=== PATIENT | male | born 1965 | race Two or more races ===

== ENCOUNTER 2019-10-02 19:46 | Emergency (ER) | payer BC ==
[~2019-10-02] VITALS: Ht 175.3 cm; Wt 86.3 kg
[2019-10-02] MEDS ORDERED: IV NORMAL SALINE 1000ML BAG 1,000 ML IV ONE (20:30)
[2019-10-02] MEDS ORDERED: ACETAMINOPHEN 325 MG TABLET. PO ONE (20:30)
[2019-10-02 20:57] LABS: BASO % 0 % (0-3); EOS % 0 % (0-3); HEMATOCRIT 42.1 % (39.0-53.0); HEMOGLOBIN 15.1 g/dL (13.0-17.5); LYMPH # 1.7 x10^3/uL (1.0-4.8); LYMPH % 35 % (24-48); MEAN CORPUSCULAR HEMOGLOBIN 32 pg (25-35); MEAN CORPUSCULAR HGB CONC 36 g/dL (31-37); MEAN CORPUSCULAR VOLUME 90 fL (79-100); MONO # 0.4 x10^3/uL (0.0-1.1); MONO % 9 % (0-9); NEUT # 2.8 x10^3/uL (1.8-7.7); NEUT % 56 % (31-73); PLATELET COUNT 125 x10^3/uL (140-400); RED BLOOD COUNT 4.68 x10^6/uL (4.30-5.70); RED CELL DISTRIBUTION WIDTH 12.9 % (11.5-14.5); WHITE BLOOD COUNT 4.9 x10^3/uL (4.0-11.0)
[2019-10-02 21:05] LABS: CALCIUM 8.6 mg/dL (8.5-10.1); CREATININE 1.1 mg/dL (0.7-1.3); GFR 69.8; POTASSIUM 3.6 mmol/L (3.5-5.1)
[2019-10-02 21:11] LABS: ALBUMIN 3.8 g/dL (3.4-5.0); ALBUMIN/GLOBULIN RATIO 1.1 (1.0-1.7); TOTAL BILIRUBIN 0.3 mg/dL (0.2-1.0); TOTAL PROTEIN 7.4 g/dL (6.4-8.2)
--- NOTE | 2019-10-02 21:58 | RAD ---
Exam: Chest one view INDICATION: Cough TECHNIQUE: Frontal view of the chest Comparisons: None FINDINGS: The cardiomediastinal silhouette and pulmonary vessels are within normal limits. The lung and pleural spaces are clear. IMPRESSION: No acute cardiopulmonary process. Electronically signed by: Warren Jackson MD (10/02/2019 9:56 PM) [id number]
--- NOTE | 2019-10-02 22:24 | PHYS DOC ---
Past Medical History Past Medical History: No Pertinent History Smoking Status: Never Smoker Alcohol Use: None General Adult EDM: Chief Complaint: HEADACHE HPI: HPI: Patient is a 54 year old male with a chief complaint of fever, cough, body aches x1 week. Patient states that his also has similar complaints. Patient denies being an active smoker. Patient denies having diabetes, asthma or any other medical issues. Patient states that he tries to take NyQuil which knocked him a couple nights but the symptoms have not gone away. Patient is concerned that he may have COVID. Review of Systems: Review of Systems: Constitutional: Complains of fever. [] Eyes: Denies change in visual acuity. [] HENT: Denies nasal congestion or sore throat. [] Respiratory: Complains of cough [] Cardiovascular: Denies chest pain or edema. [] GI: Denies abdominal pain, nausea, vomiting, bloody stools or diarrhea. [] : Denies dysuria. [] Musculoskeletal: Denies back pain or joint pain. [] Integument: Denies rash. [] Neurologic: Complains of headache [] Heart Score: Risk Factors: Risk Factors: DM, Current or recent (<one month) smoker, HTN, HLP, family history of CAD, obesity. Risk Scores: Score 0 - 3: 2.5% MACE over next 6 weeks - Discharge Home Score 4 - 6: 20.3% MACE over next 6 weeks - Admit for Clinical Observation Score 7 - 10: 72.7% MACE over next 6 weeks - Early Invasive Strategies Current Medications: Current Medications Medications (Trade) Dose Ordered [facility] Start Time Stop Time Status Last Admin Dose Admin Acetaminophen (Tylenol) 650 mg 1X ONCE 10/02/19 20:30 10/02/19 20:31 UNV 10/02/19 21:34 650 MG Azithromycin (Zithromax) 500 mg 1X ONCE 10/02/19 22:15 10/02/19 22:16 UNV Ceftriaxone Sodium (Rocephin) 1 gm 1X ONCE 10/02/19 22:15 10/02/19 22:16 UNV Sodium Chloride 1,000 ml @ 1,000 mls/hr 1X ONCE 10/02/19 20:30 10/02/19 21:29 UNV 10/02/19 21:34 1,000 MLS/HR Allergies: Allergies: Allergies Coded Allergies Type Severity Reaction Last Updated Verified No Known Drug Allergies 10/02/19 No Physical Exam: PE: Constitutional: Well developed, well nourished, no acute distress, non-toxic appearance. [] HENT: Normocephalic, atraumatic Eyes: EOMI Neck: Normal range of motion, Supple Cardiovascular: Heart rate regular rhythm Lungs & Thorax: Bilateral breath sounds clear to auscultation [] Abdomen: Bowel sounds normal, soft, no tenderness Extremities: No tenderness, ROM intact Neurologic: Alert and oriented X 3 Current Patient Data: Labs: Laboratory Tests Test 10/02/19 20:40 White Blood Count 4.9 x10^3/uL (4.0-11.0) Red Blood Count 4.68 x10^6/uL (4.30-5.70) Hemoglobin 15.1 g/dL (13.0-17.5) Hematocrit 42.1 % (39.0-53.0) Mean Corpuscular Volume 90 fL (79-100) Mean Corpuscular Hemoglobin 32 pg (25-35) Mean Corpuscular Hemoglobin Concent 36 g/dL (31-37) Red Cell Distribution Width 12.9 % (11.5-14.5) Platelet Count 125 x10^3/uL (140-400) L Neutrophils (%) (Auto) 56 % (31-73) Lymphocytes (%) (Auto) 35 % (24-48) Monocytes (%) (Auto) 9 % (0-9) Eosinophils (%) (Auto) 0 % (0-3) Basophils (%) (Auto) 0 % (0-3) Neutrophils # (Auto) 2.8 x10^3/uL (1.8-7.7) Lymphocytes # (Auto) 1.7 x10^3/uL (1.0-4.8) Monocytes # (Auto) 0.4 x10^3/uL (0.0-1.1) Eosinophils # (Auto) 0.0 x10^3/uL (0.0-0.7) Basophils # (Auto) 0.0 x10^3/uL (0.0-0.2) Sodium Level 135 mmol/L (136-145) L Potassium Level 3.6 mmol/L (3.5-5.1) Chloride Level 98 mmol/L (98-107) Carbon Dioxide Level 27 mmol/L (21-32) Anion Gap 10 (6-14) Blood Urea Nitrogen 16 mg/dL (8-26) Creatinine 1.1 mg/dL (0.7-1.3) Estimated GFR (Cockcroft-Gault) 69.8 BUN/Creatinine Ratio 15 (6-20) Glucose Level 112 mg/dL (70-99) H Lactic Acid Level 0.9 mmol/L (0.4-2.0) Calcium Level 8.6 mg/dL (8.5-10.1) Total Bilirubin 0.3 mg/dL (0.2-1.0) Aspartate Amino Transferase (AST) 33 U/L (15-37) Alanine Aminotransferase (ALT) 55 U/L (16-63) Alkaline Phosphatase 92 U/L (46-116) Lactate Dehydrogenase 190 U/L (85-227) Total Protein 7.4 g/dL (6.4-8.2) Albumin 3.8 g/dL (3.4-5.0) Albumin/Globulin Ratio 1.1 (1.0-1.7) Laboratory Tests 10/02/19 20:40 Laboratory Tests 10/02/19 20:40 Vital Signs: Vital Signs Date Time Temp Pulse Resp B/P (MAP) Pulse Ox O2 Delivery O2 Flow Rate FiO2 10/02/19 20:40 99.9 96 16 159/74 (102) 95 Room Air 99.9 EKG: EKG: [] Radiology/Procedures: Radiology/Procedures: [] Impression: CXR IMPRESSION: No acute cardiopulmonary process. Course & Med Decision Making: Course & Med Decision Making Pertinent Labs and Imaging studies reviewed. (See chart for details) Ordered labs, Tylenol, strep screen, COVID testing, chest x-ray, IV fluids Labs are within normal limits. Strep screen is negative. Patient is oxygen saturation is 96% on room air. Patient's is also in the ER with similar complaints. Patient is currently treated with antibiotics and so patient also will be treated with antibiotics. Patient can be discharged home for outpatient follow-up. Discussed results and plan of care with patient. Patient is instructed to follow up with PCP in one to 2 days. Appropriate discharge instructions given to patient to return to the ED or to seek immediate medical evaluation. Patient is instructed to return to the ED if symptoms worsen or if any concerns. Dinorah Disclaimer: Dragon Disclaimer: This electronic medical record was generated, in whole or in part, using a voice recognition dictation system. Departure Departure Impression: Primary Impression: Bronchitis Additional Impression: Suspected COVID-19 virus infection Disposition: HOME, SELF-CARE Condition: STABLE Referrals: NO PCP (PCP) Patient Instructions: Acute Bronchitis, Viral Infections Additional Instructions: Please return to the ED if symptoms worsen or if any concerns. Please follow-up with PCP in 1 to 2 days. Please call 911 if you have shortness of breath. Scripts Azithromycin (ZITHROMAX) 500 Mg Tablet 1 TAB PO DAILY, #4 TAB Prov: ROSALBA SHELDON DO 10/02/19 Justicifation of Admission Dx: Justifications for Admission: Justification of Admission Dx: ROSALBA Bustamante DO Oct 02, 2019 22:24
[2019-10-02] MEDS ORDERED: AZIT500T PO (22:42)
[2019-10-02 23:00] VITALS: BP 123/70
[2019-10-02] MEDS ORDERED: AZITHROMYCIN 250 MG TABLET. PO ONE (23:00)
[2019-10-02] MEDS ORDERED: cefTRIAXone IV Push 1 GM VIAL. IVP ONE (23:00)
== END 2019-10-03 00:30 | disposition home or self-care (01) ==
LOC: ER 19:46
DX: J40 Bronchitis, not specified as acute or chronic (principal); Z20.828 Contact with and (suspected) exposure to other viral communicable diseases; R50.9 Fever, unspecified; R05 Cough; R51 Headache; F17.200 Nicotine dependence, unspecified, uncomplicated
CPT/HCPCS: 36415; 71045; 80053; 83605; 83615; 85025; 87070; 87880; 96374; 99285; J0696; J7030; U0003

== ENCOUNTER 2019-10-06 13:05 | Inpatient (IN) | payer BC ==
[~2019-10-06] VITALS: Ht 177.8 cm; Wt 110.0 kg
[~2019-10-06 13:05] MED LIST: AZIT500T PO
--- NOTE | 2019-10-06 13:28 | PHYS DOC ---
Past Medical History Past Medical History: No Pertinent History Smoking Status: Never Smoker Alcohol Use: None General Adult EDM: Chief Complaint: COUGH HPI: HPI: 54-year-old male with no reported significant past medical history, who presents for evaluation of several days of ongoing URI symptoms. He reports a very severe unrelenting nonproductive cough, associated with mild dyspnea. Also reports some chest fullness without pain. Was seen recently on 10/02/2019. Patient was informed just prior to arrival that his COVID screen was positive. Review of Systems: Review of Systems: Gen: No fever, chills. Reports fatigue. Eyes: No blurred vision, diplopia. ENT: No nasal congestion, sore throat. CV: No CP, palpitations. Resp. Reports SOB, cough. GI: No abd pain, N/V. : No dysuria, hematuria. Neuro: No MCNULTY, dizziness, weakness. MSK: No myalgia, arthralgia, back pain. Skin: No acute rash or lesion. Heart Score: Risk Factors: Risk Factors: DM, Current or recent (<one month) smoker, HTN, HLP, family history of CAD, obesity. Risk Scores: Score 0 - 3: 2.5% MACE over next 6 weeks - Discharge Home Score 4 - 6: 20.3% MACE over next 6 weeks - Admit for Clinical Observation Score 7 - 10: 72.7% MACE over next 6 weeks - Early Invasive Strategies Allergies: Allergies: Allergies Coded Allergies Type Severity Reaction Last Updated Verified No Known Drug Allergies 10/02/19 No Physical Exam: PE: Gen: NAD. Well nourished. Head: NC/AT. Eyes: No scleral icterus. No conjunctival injection. ENT: MMM. Posterior OP clear. Neck: Supple. NT. CV: RRR. Peripheral pulses intact. Resp: Faint rhonchi bilaterally. Actively coughing. Abd: Soft. NT. ND. MSK: No peripheral cyanosis. No edema. Neuro: Awake and alert. Skin. Warm. Dry. Psych: Appropriate mood & affect. Current Patient Data: Labs: Laboratory Tests Test 10/06/19 13:25 White Blood Count 3.5 x10^3/uL (4.0-11.0) Red Blood Count 4.79 x10^6/uL (4.30-5.70) Hemoglobin 15.3 g/dL (13.0-17.5) Hematocrit 43.0 % (39.0-53.0) Mean Corpuscular Volume 90 fL (79-100) Mean Corpuscular Hemoglobin 32 pg (25-35) Mean Corpuscular Hemoglobin Concent 36 g/dL (31-37) Red Cell Distribution Width 13.1 % (11.5-14.5) Platelet Count 136 x10^3/uL (140-400) Neutrophils (%) (Auto) 60 % (31-73) Lymphocytes (%) (Auto) 34 % (24-48) Monocytes (%) (Auto) 6 % (0-9) Eosinophils (%) (Auto) 0 % (0-3) Basophils (%) (Auto) 0 % (0-3) Neutrophils # (Auto) 2.1 x10^3/uL (1.8-7.7) Lymphocytes # (Auto) 1.2 x10^3/uL (1.0-4.8) Monocytes # (Auto) 0.2 x10^3/uL (0.0-1.1) Eosinophils # (Auto) 0.0 x10^3/uL (0.0-0.7) Basophils # (Auto) 0.0 x10^3/uL (0.0-0.2) Sodium Level 132 mmol/L (136-145) Chloride Level 97 mmol/L (98-107) Carbon Dioxide Level 29 mmol/L (21-32) Anion Gap 6 (6-14) Blood Urea Nitrogen 11 mg/dL (8-26) Estimated GFR (Cockcroft-Gault) 77.9 BUN/Creatinine Ratio 11 (6-20) Glucose Level 108 mg/dL (70-99) Calcium Level 8.5 mg/dL (8.5-10.1) Total Bilirubin 0.4 mg/dL (0.2-1.0) Aspartate Amino Transf (AST/SGOT) 44 U/L (15-37) Alkaline Phosphatase 75 U/L (46-116) Troponin I Quantitative < 0.017 ng/mL (0.000-0.055) Total Protein 7.6 g/dL (6.4-8.2) Albumin 3.6 g/dL (3.4-5.0) Albumin/Globulin Ratio 0.9 (1.0-1.7) Vital Signs: Vital Signs Date Time Temp Pulse Resp B/P (MAP) Pulse Ox O2 Delivery O2 Flow Rate FiO2 10/06/19 13:05 100.3 94 26 154/83 (106) 94 Room Air 100.3 Vital Signs Date Time Temp Pulse Resp B/P (MAP) Pulse Ox O2 Delivery O2 Flow Rate FiO2 10/06/19 13:50 92 Room Air 10/06/19 13:28 22 10/06/19 13:05 100.3 94 154/83 (106) 100.3 EKG: EKG: EKG at 1316. Sinus rhythm. Heart rate 92. Normal intervals. No STEMI. I nterpreted by me. Radiology/Procedures: Radiology/Procedures: EXAM: CHEST AP ONLY FINDINGS: Stable borderline enlarged heart size. There is mild central pulmonary vascular congestion. There is no hilar or mediastinal mass. Lungs show no focal infiltrates. Lungs are hypoventilatory. There is no pleural effusion or pneumothorax. There are no significant osseous abnormalities. IMPRESSION: Hypoventilatory chest showing mild central pulmonary vascular congestion. No focal infiltrates identified. Electronically signed by: Denisa Ibarra MD (10/06/2019 2:07 PM) [id number] Course & Med Decision Making: Course & Med Decision Making Pertinent Labs and Imaging studies reviewed. (See chart for details) In summary, 54-year-old male who is now known to be COVID positive, who presents for the evaluation of persistent URI symptoms, primarily nonproductive cough. Low-grade temperature here. No hypoxia on room air. Lab work is otherwise unrevealing. No lymphopenia noted. Troponin negative. Chest x-ray without acute infiltrate. Received breathing treatment for bronchospasm and Tylenol with codeine for cough. He is stable for discharge home as he is otherwise well-appearing and nontoxic without hypoxia. Will be prescribed Tylenol with codeine, Mucinex DM, albuterol inhaler for bronchospasm. Return precautions given. Dragon Disclaimer: Dinorah Disclaimer: This electronic medical record was generated, in whole or in part, using a voice recognition dictation system. Departure Departure Impression: Primary Impression: COVID-19 Disposition: 01 HOME, SELF-CARE Condition: STABLE Referrals: NO PCP (PCP) Patient Instructions: Viral Syndrome Scripts Albuterol Sulfate (PROAIR HFA INHALER) 8.5 Gm Hfa.aer.ad 2 PUFF IH PRN Q4-6HRS PRN for wheezing for 21 Days, #1 INHALER 0 Refills Prov: BRIAN SCOTT DO 10/06/19 Guaifenesin/Dextromethorphan (MUCINEX DM ER 600-30 MG TABLET) 1 Each Tab.er.12h 1 TAB PO PRN BID PRN for cough and congestion for 14 Days, #28 TAB 0 Refills Prov: BRIAN SCOTT DO 10/06/19 Acetaminophen With Codeine (TYLENOL WITH CODEINE #3 TABLET) 1 Each Tablet 1 TAB PO PRN Q8HRS PRN for PAIN, #15 TAB Prov: BRIAN SCOTT DO 10/06/19 Justicifation of Admission Dx: Justifications for Admission: Justification of Admission Dx: N/A BRIAN SCOTT DO Oct 06, 2019 13:28
[2019-10-06] MEDS ORDERED: IPRATRPIUM/ALBUTEROL 0.5/2.5MG 3 ML NEBU. NEB ONE (13:30)
[2019-10-06] MEDS ORDERED: ACETAMINOPHEN/CODEINE 300/30MG TABLET. PO ONE (13:30)
[2019-10-06 13:39] LABS: BASO % 0 % (0-3); EOS % 0 % (0-3); HEMOGLOBIN 15.3 g/dL (13.0-17.5); LYMPH # 1.2 x10^3/uL (1.0-4.8); LYMPH % 34 % (24-48); MEAN CORPUSCULAR HEMOGLOBIN 32 pg (25-35); MEAN CORPUSCULAR HGB CONC 36 g/dL (31-37); MEAN CORPUSCULAR VOLUME 90 fL (79-100); MONO # 0.2 x10^3/uL (0.0-1.1); MONO % 6 % (0-9); NEUT # 2.1 x10^3/uL (1.8-7.7); NEUT % 60 % (31-73); PLATELET COUNT 136 x10^3/uL (140-400); RED BLOOD COUNT 4.79 x10^6/uL (4.30-5.70); RED CELL DISTRIBUTION WIDTH 13.1 % (11.5-14.5); WHITE BLOOD COUNT 3.5 x10^3/uL (4.0-11.0)
[2019-10-06 13:56] LABS: CALCIUM 8.5 mg/dL (8.5-10.1); GFR 77.9; POTASSIUM 3.7 mmol/L (3.5-5.1)
[2019-10-06 14:03] LABS: ALBUMIN 3.6 g/dL (3.4-5.0); ALBUMIN/GLOBULIN RATIO 0.9 (1.0-1.7); TOTAL BILIRUBIN 0.4 mg/dL (0.2-1.0); TOTAL PROTEIN 7.6 g/dL (6.4-8.2)
--- NOTE | 2019-10-06 14:10 | RAD ---
EXAM: CHEST AP ONLY INDICATION: Reason: SOA/COUGH / Spl. Instructions: / History: . TECHNIQUE: Single view COMPARISON: 10/02/2019 chest x-ray FINDINGS: Stable borderline enlarged heart size. There is mild central pulmonary vascular congestion. There is no hilar or mediastinal mass. Lungs show no focal infiltrates. Lungs are hypoventilatory. There is no pleural effusion or pneumothorax. There are no significant osseous abnormalities. IMPRESSION: Hypoventilatory chest showing mild central pulmonary vascular congestion. No focal infiltrates identified. Electronically signed by: Denisa Ibarra MD (10/06/2019 2:07 PM) [id number]
[2019-10-06] MEDS ORDERED: GUAI-108 PO (14:20)
[2019-10-06] MEDS ORDERED: ACET-704 PO (14:20)
[2019-10-06] MEDS ORDERED: ALBU2.5V8 IH (14:20)
[2019-10-06] MEDS ORDERED: ONDANSETRON PF 4 MG/2 ML VIAL. IV PRN ×2 (15:00→15:30)
--- NOTE | 2019-10-06 15:25 | PDOC1 ---
History and Physical Date of Admission Date of Admission DATE: 10/06/19 TIME: 15:21 Identification/Chief Complaint Chief Complaint Shortness of breath Source Source: Patient History of Present Illness History of Present Illness Mr Kruse is a 54 yo M with no reported significant past medical history, recently returned to work at , who presents for evaluation of several days of ongoing shortness of breath and persistent cough as well as abdominal pain. Severe unrelenting nonproductive cough, associated with mild dyspnea. He has been having nausea and diarrhea and abdominal fullness. Having trouble getting a deep breath, air hunger symptoms. Patient was informed just prior to arrival that his COVID screen was positive, this was administered on 10/02/2019. Labs significant for WBC 3.5, platelets 136, Na 132, K 3.7, AST 44, troponin negative. CXR with mild central pulmonary vascular congestion. EKG Sinus rhythm. Heart rate 92. Normal intervals. No STEMI. Initially did not appear hypoxic, then notably 87% on room air with increased to 92% once on 2L NCO2. Temp 100.3F, HR 96, breathing 26 times per minute. Admitted for further treatment. Past Medical History Cardiovascular: No pertinent hx Past Surgical History Past Surgical History: No pertinent history Family History Family History: Hypertension Social History Smoke: No ALCOHOL: none Drugs: None Current Problem List Problem List Problems Medical Problems: (1) COVID-19 Status: Acute Current Medications Current Medications Current Medications Acetaminophen/ Codeine Phosphate (Tylenol #3) 1 tab 1X ONCE PO Last administered on 10/06/19at 13:28; Start 10/06/19 at 13:30; Stop 10/06/19 at 13:31; Status DC Albuterol/ Ipratropium (Duoneb) 3 ml 1X ONCE NEB Last administered on 10/06/19at 13:50; Start 10/06/19 at 13:30; Stop 10/06/19 at 13:31; Status DC Ondansetron HCl (Zofran) 4 mg PRN Q8HRS PRN IV NAUSEA/VOMITING; Start 10/06/19 at 15:00; Stop 10/07/19 at 14:59 Active Scripts Active Proair Hfa Inhaler (Albuterol Sulfate) 8.5 Gm Hfa.aer.ad 2 Puff IH PRN Q4-6HRS PRN 21 Days Mucinex Dm Er 600-30 Mg Tablet (Guaifenesin/Dextromethorphan) 1 Each Tab.er.12h 1 Tab PO PRN BID PRN 14 Days Tylenol With Codeine #3 Tablet (Acetaminophen/Codeine Phosphate) 1 Each Tablet 1 Tab PO PRN Q8HRS PRN Zithromax (Azithromycin) 500 Mg Tablet 1 Tab PO DAILY Allergies Allergies: Coded Allergies: No Known Drug Allergies (Unverified , 10/02/19) PT REPORTS NKDA ROS General: YES: Chills, Night Sweats, Fatigue, Malaise; No: Appetite, Other PSYCHOLOGICAL ROS: No: Anxiety, Behavioral Disorder, Concentration difficultie, Decreased libido, Depression, Disorientation, Hallucinations, Hostility, Irritablity, Memory difficulties, Mood Swings, Obsessive thoughts, Physical abuse, Sexual abuse, Sleep disturbances, Suicidal ideation, Other Eyes: No Blurry vision, No Decreased vision, No Double vision, No Dry eyes, No Excessive tearing, No Eye Pain, No Itchy Eyes, No Loss of vision, No Photophobia, No Scotomata, No Uses contacts, No Uses glasses, No Other HEENT: No: Heacaches, Visual Changes, Hearing change, Nasal congestion, Nasal discharge, Oral lesions, Sinus pain, Sore Throat, Epistaxis, Sneezing, Snoring, Tinnitus, Vertigo, Vocal changes, Other ALLERGY AND IMMUNOLOGY: No: Hives, Insect Bite Sensitivity, Itchy/Watery Eyes, Nasal Congestion, Post Nasal Drip, Seasonal Allergies, Other Hematological and Lymphatic: No: Bleeding Problems, Blood Clots, Blood Transfusions, Brusing, Night Sweats, Pallor, Swollen Lymph Nodes, Other ENDOCRINE: No: Breast Changes, Galactorrhea, Hair Pattern Changes, Hot Flashes, Malaise/lethargy, Mood Swings, Palpitations, Polydipsia/polyuria, Skin Changes, Temperature Intolerance, Unexpected Weight Changes, Other Breast: No New/Changing Breast Lumps, No Nipple changes, No Nipple discharge, No Other Respiratory: YES: Cough, Pleuritic Pain, Shortness of breath, SOB with excertion, Tachypnea, Wheezing; No: Hemoptysis, Orthopnea, Sputum Changes, Stridor, Other Cardiovascular: No Chest Pain, No Palpitations, No Orthopnea, No Paroxysmal Noc. Dyspnea, No Edema, No Lt Headedness, No Other Gastrointestinal: Yes Nausea, Yes Abdominal Pain, Yes Diarrhea; No Vomiting, No Constipation, No Melena, No Hematochezia, No Other Genitourinary: No Dysuria, No Frequency, No Incontinence, No Hematuria, No Retention, No Discharge, No Urgency, No Pain, No Flank Pain, No Other, No , No , No , No , No , No , No Musculoskeletal: No Gait Disturbance, No Joint Pain, No Joint Stiffness, No Joint Swelling, No Muscle Pain, No Muscular Weakness, No Pain In:, No Swelling In:, No Other Neurological: No Behavorial Changes, No Bowel/Bladder ControlChng, No Confusion, No Dizziness, No Gait Disturbance, No Headaches, No Impaired Coord/balance, No Memory Loss, No Numbness/Tingling, No Seizures, No Speech Problems, No Tremors, No Visual Changes, No Weakness, No Other Skin: No Dry Skin, No Eczema, No Hair Changes, No Lumps, No Mole Changes, No Mottling, No Nail Changes, No Pruritus, No Rash, No Skin Lesion Changes, No Other, No Acne Physical Exam General: Alert, Oriented X3, Cooperative, moderate distress HEENT: Atraumatic, PERRLA, EOMI, Mucous membr. moist/pink Lungs: Other (DIffuse wheezing) Heart: S1S2, RRR, no thrills, no rubs, no gallops, no murmurs Abdomen: Normal bowel sounds, Soft, No tenderness, No hepatosplenomegaly, No masses Rectal Exam: not examined Extremities: No clubbing, No cyanosis, No edema, Normal pulses, No tenderness/swelling Skin: No rashes, No breakdown, No significant lesion Neuro: Normal gait, Normal speech, Strength at 5/5 X4 ext, Normal tone, Sensation intact, Cranial nerves 3-12 NL, Reflexes 2+ Psych/Mental Status: Mental status NL, Mood NL Vitals Vitals Vital Signs Date Time Temp Pulse Resp B/P (MAP) Pulse Ox O2 Delivery O2 Flow Rate FiO2 10/06/19 14:40 102 159/92 (114) 94 Nasal Cannula 2.0 10/06/19 13:28 22 10/06/19 13:05 100.3 100.3 Labs Labs Laboratory Tests Test 10/06/19 13:25 White Blood Count 3.5 x10^3/uL (4.0-11.0) Red Blood Count 4.79 x10^6/uL (4.30-5.70) Hemoglobin 15.3 g/dL (13.0-17.5) Hematocrit 43.0 % (39.0-53.0) Mean Corpuscular Volume 90 fL (79-100) Mean Corpuscular Hemoglobin 32 pg (25-35) Mean Corpuscular Hemoglobin Concent 36 g/dL (31-37) Red Cell Distribution Width 13.1 % (11.5-14.5) Platelet Count 136 x10^3/uL (140-400) Neutrophils (%) (Auto) 60 % (31-73) Lymphocytes (%) (Auto) 34 % (24-48) Monocytes (%) (Auto) 6 % (0-9) Eosinophils (%) (Auto) 0 % (0-3) Basophils (%) (Auto) 0 % (0-3) Neutrophils # (Auto) 2.1 x10^3/uL (1.8-7.7) Lymphocytes # (Auto) 1.2 x10^3/uL (1.0-4.8) Monocytes # (Auto) 0.2 x10^3/uL (0.0-1.1) Eosinophils # (Auto) 0.0 x10^3/uL (0.0-0.7) Basophils # (Auto) 0.0 x10^3/uL (0.0-0.2) Sodium Level 132 mmol/L (136-145) Potassium Level 3.7 mmol/L (3.5-5.1) Chloride Level 97 mmol/L (98-107) Carbon Dioxide Level 29 mmol/L (21-32) Anion Gap 6 (6-14) Blood Urea Nitrogen 11 mg/dL (8-26) Creatinine 1.0 mg/dL (0.7-1.3) Estimated GFR (Cockcroft-Gault) 77.9 BUN/Creatinine Ratio 11 (6-20) Glucose Level 108 mg/dL (70-99) Calcium Level 8.5 mg/dL (8.5-10.1) Magnesium Level 2.0 mg/dL (1.8-2.4) Total Bilirubin 0.4 mg/dL (0.2-1.0) Aspartate Amino Transf (AST/SGOT) 44 U/L (15-37) Alanine Aminotransferase (ALT/SGPT) 59 U/L (16-63) Alkaline Phosphatase 75 U/L (46-116) Troponin I Quantitative < 0.017 ng/mL (0.000-0.055) Total Protein 7.6 g/dL (6.4-8.2) Albumin 3.6 g/dL (3.4-5.0) Albumin/Globulin Ratio 0.9 (1.0-1.7) Laboratory Tests Test 10/06/19 13:25 White Blood Count 3.5 x10^3/uL (4.0-11.0) Red Blood Count 4.79 x10^6/uL (4.30-5.70) Hemoglobin 15.3 g/dL (13.0-17.5) Hematocrit 43.0 % (39.0-53.0) Mean Corpuscular Volume 90 fL (79-100) Mean Corpuscular Hemoglobin 32 pg (25-35) Mean Corpuscular Hemoglobin Concent 36 g/dL (31-37) Red Cell Distribution Width 13.1 % (11.5-14.5) Platelet Count 136 x10^3/uL (140-400) Neutrophils (%) (Auto) 60 % (31-73) Lymphocytes (%) (Auto) 34 % (24-48) Monocytes (%) (Auto) 6 % (0-9) Eosinophils (%) (Auto) 0 % (0-3) Basophils (%) (Auto) 0 % (0-3) Neutrophils # (Auto) 2.1 x10^3/uL (1.8-7.7) Lymphocytes # (Auto) 1.2 x10^3/uL (1.0-4.8) Monocytes # (Auto) 0.2 x10^3/uL (0.0-1.1) Eosinophils # (Auto) 0.0 x10^3/uL (0.0-0.7) Basophils # (Auto) 0.0 x10^3/uL (0.0-0.2) Sodium Level 132 mmol/L (136-145) Potassium Level 3.7 mmol/L (3.5-5.1) Chloride Level 97 mmol/L (98-107) Carbon Dioxide Level 29 mmol/L (21-32) Anion Gap 6 (6-14) Blood Urea Nitrogen 11 mg/dL (8-26) Creatinine 1.0 mg/dL (0.7-1.3) Estimated GFR (Cockcroft-Gault) 77.9 BUN/Creatinine Ratio 11 (6-20) Glucose Level 108 mg/dL (70-99) Calcium Level 8.5 mg/dL (8.5-10.1) Magnesium Level 2.0 mg/dL (1.8-2.4) Total Bilirubin 0.4 mg/dL (0.2-1.0) Aspartate Amino Transf (AST/SGOT) 44 U/L (15-37) Alanine Aminotransferase (ALT/SGPT) 59 U/L (16-63) Alkaline Phosphatase 75 U/L (46-116) Troponin I Quantitative < 0.017 ng/mL (0.000-0.055) Total Protein 7.6 g/dL (6.4-8.2) Albumin 3.6 g/dL (3.4-5.0) Albumin/Globulin Ratio 0.9 (1.0-1.7) Images Images CXR: Stable borderline enlarged heart size. There is mild central pulmonary vascular congestion. There is no hilar or mediastinal mass. Lungs show no focal infiltrates. Lungs are hypoventilatory. There is no pleural effusion or pneumothorax. There are no significant osseous abnormalities. IMPRESSION: Hypoventilatory chest showing mild central pulmonary vascular congestion. No focal infiltrates identified. VTE Prophylaxis Ordered VTE Prophylaxis Devices: No VTE Pharmacological Prophylaxi: Yes Assessment/Plan Assessment/Plan A/P: Acute hypoxic respiratory failure - with worsening COVID 19 symptoms. He has been on azithromycin, will cont 2 IV doses. therapeutic lovenox, consult Pulmonology. Wean O2 as tolerated. Anti-tussives COVID 19 - with leukopenia, CXR findings, hypoxia, abnormal LFTs, consistent with viral syndrome. Will cont supportive care. Pulm consulted. Transaminitis - related to COVID 19, will monitor Diarrhea - will monitor stools, check c. diff per protocol if continued loose stools Sepsis - due to COVID 19, will cont above care, lactate negative. FEN - General diet PPX - lovenox FULL CODE Dispo - inpatient at least 2 midnights. COVID-19 CRITERIA: The patient was evaluated during the global COVID-19 pandemic, and that diagnosis was suspected/considered upon their initial presentation. Their evaluation, treatment and testing was consistent with current guidelines for patients who present with complaints or symptoms that may be related to COVID-19. Justicifation of Admission Dx: Justifications for Admission: Justification of Admission Dx: Yes Respiratory Failure: Severe Resp Distress VIOLA SOMMERS MD Oct 06, 2019 15:25
[2019-10-06] MEDS: ENOXAPARIN 40 MG/0.4 ML SYRINGE. SQ SCH (16:00)
[2019-10-06] MEDS: ACETAMINOPHEN 325 MG TABLET. PO PRN ×2 (16:41→21:52)
[2019-10-06] MEDS: ZINC SULFATE 220 MG CAPSULE. PO SCH (16:42)
[2019-10-06] MEDS: guaiFENesin DM 200MG/20MG 10 ML SYRUP PO PRN ×2 (17:24→21:52)
[2019-10-06] MEDS: AZITHROMYCIN 250 MG in IV NORMAL SALINE 250ML 250 ML IV SCH (18:01)
[2019-10-06 19:00] VITALS: BP 114/60
[2019-10-06] MEDS: LACTOBACILLUS RHAMNOSUS GG 1 CAPSULE. PO SCH (21:00)
[2019-10-06 23:00] VITALS: BP 125/67
[2019-10-06] MEDS: ZOLPIDEM 5 MG TABLET. PO PRN (23:22)
[2019-10-07 03:00] VITALS: BP 118/60
[2019-10-07] MEDS: ACETAMINOPHEN 325 MG TABLET. PO PRN ×4 (04:04→20:18)
[2019-10-07 07:00] VITALS: BP 119/65
[2019-10-07] MEDS: ENOXAPARIN 40 MG/0.4 ML SYRINGE. SQ SCH ×2 (07:51→20:18)
--- NOTE | 2019-10-07 07:53 | EKG ---
[facility] [address] [place] [address] Test Date: 2019-10-06 Test Time: 13:16:53 Pat Name: TANYA LEDEZMA Department: Room: [facility] Gender: M [employer]: : 1965 Requested By: VIOLA SOMMERS Order Number: [id number] Reading MD: Loco Gaffney Measurements Intervals [place] Rate: 92 P: 137 WA: 156 QRS: 162 QRSD: 80 T: 168 QT: 330 QTc: 413 Interpretive Statements SINUS RHYTHM Electronically Signed On 10-08-2019 16:28:04 CDT by Loco Gaffney
[2019-10-07] MEDS: LACTOBACILLUS RHAMNOSUS GG 1 CAPSULE. PO SCH ×2 (08:07→20:18)
[2019-10-07] MEDS: ZINC SULFATE 220 MG CAPSULE. PO SCH (08:08)
[2019-10-07] MEDS: guaiFENesin/CODEINE 100mg/10mg 5 ML LIQUID PO PRN ×3 (09:55→20:18)
[2019-10-07] MEDS: BENZONATATE 100 MG CAPSULE. PO SCH ×3 (09:55→20:18)
[2019-10-07 10:10] VITALS: BP 118/66
--- NOTE | 2019-10-07 11:04 | PDOC ---
[facility] PROGRESS NOTE Chief Complaint Chief Complaint Respiratory failure COVID-19 positive History of Present Illness History of Present Illness 10/07/2019 Patient seen and examined Chart reviewed Discussed with RN Patient still having fevers and a lot of coughing Vitals/I&O Vitals/I&O: Vital Signs Date Time Temp Pulse Resp B/P (MAP) Pulse Ox O2 Delivery O2 Flow Rate FiO2 10/07/19 10:10 98.6 72 16 118/66 (83) 98 Room Air 98.6 10/07/19 08:00 2.0 I & O 10/06/19 10/06/19 10/07/19 15:00 23:00 07:00 Intake Total 420 ml 1000 ml Balance 420 ml 1000 ml Physical Exam General: Alert, Oriented X3, Cooperative, moderate distress Heart: Regular rate Lungs: Other (Clear but a lot of coughing) Abdomen: Normal bowel sounds, Soft, No tenderness, No hepatosplenomegaly, No masses Extremities: No clubbing, No cyanosis, No edema, Normal pulses, No ten derness/swelling Skin: No rashes, No breakdown, No significant lesion Labs Labs: Laboratory Tests Test 10/06/19 13:25 10/06/19 17:40 White Blood Count 3.5 x10^3/uL (4.0-11.0) Red Blood Count 4.79 x10^6/uL (4.30-5.70) Hemoglobin 15.3 g/dL (13.0-17.5) Hematocrit 43.0 % (39.0-53.0) Mean Corpuscular Volume 90 fL (79-100) Mean Corpuscular Hemoglobin 32 pg (25-35) Mean Corpuscular Hemoglobin Concent 36 g/dL (31-37) Red Cell Distribution Width 13.1 % (11.5-14.5) Platelet Count 136 x10^3/uL (140-400) Neutrophils (%) (Auto) 60 % (31-73) Lymphocytes (%) (Auto) 34 % (24-48) Monocytes (%) (Auto) 6 % (0-9) Eosinophils (%) (Auto) 0 % (0-3) Basophils (%) (Auto) 0 % (0-3) Neutrophils # (Auto) 2.1 x10^3/uL (1.8-7.7) Lymphocytes # (Auto) 1.2 x10^3/uL (1.0-4.8) Monocytes # (Auto) 0.2 x10^3/uL (0.0-1.1) Eosinophils # (Auto) 0.0 x10^3/uL (0.0-0.7) Basophils # (Auto) 0.0 x10^3/uL (0.0-0.2) Sodium Level 132 mmol/L (136-145) Potassium Level 3.7 mmol/L (3.5-5.1) Chloride Level 97 mmol/L (98-107) Carbon Dioxide Level 29 mmol/L (21-32) Anion Gap 6 (6-14) Blood Urea Nitrogen 11 mg/dL (8-26) Creatinine 1.0 mg/dL (0.7-1.3) Estimated GFR (Cockcroft-Gault) 77.9 BUN/Creatinine Ratio 11 (6-20) Glucose Level 108 mg/dL (70-99) Calcium Level 8.5 mg/dL (8.5-10.1) Magnesium Level 2.0 mg/dL (1.8-2.4) Total Bilirubin 0.4 mg/dL (0.2-1.0) Aspartate Amino Transf (AST/SGOT) 44 U/L (15-37) Alanine Aminotransferase (ALT/SGPT) 59 U/L (16-63) Alkaline Phosphatase 75 U/L (46-116) Troponin I Quantitative < 0.017 ng/mL (0.000-0.055) Total Protein 7.6 g/dL (6.4-8.2) Albumin 3.6 g/dL (3.4-5.0) Albumin/Globulin Ratio 0.9 (1.0-1.7) Lactic Acid Level 1.1 mmol/L (0.4-2.0) Assessment and Plan Assessmemt and Plan Problems Medical Problems: (1) COVID-19 Status: Acute Acute hypoxic respiratory failure - with worsening COVID 19 symptoms. He has been on azithromycin, will cont 2 IV doses. therapeutic lovenox, consult Pulmonology. Wean O2 as tolerated. Anti-tussives COVID 19 - with leukopenia, CXR findings, hypoxia, abnormal LFTs, consistent with viral syndrome. Will cont supportive care. Pulm consulted. Transaminitis - related to COVID 19, will monitor Diarrhea - will monitor stools, check c. diff per protocol if continued loose stools Sepsis - due to COVID 19, will cont above care, lactate negative. COVID-19 CRITERIA: The patient was evaluated during the global COVID-19 pandemic, and that diagnosis was suspected/considered upon their initial presentation. Their evaluation, treatment and testing was consistent with current guidelines for patients who present with complaints or symptoms that may be related to COVID-19. Total time 31 Comment Review of Relevant I have reviewed the following items alyssa (where applicable) has been applied. Medications: Current Medications Medications (Trade) Dose Ordered Sig/Melissa Route PRN Reason Start Time Stop Time Status Last Admin Dose Admin Acetaminophen/ Codeine Phosphate (Tylenol #3) 1 tab 1X ONCE PO 10/06/19 13:30 10/06/19 13:31 DC 10/06/19 13:28 Albuterol/ Ipratropium (Duoneb) 3 ml 1X ONCE NEB 10/06/19 13:30 10/06/19 13:31 DC 10/06/19 13:50 Zolpidem Tartrate (Ambien) 5 mg PRN QHS PRN PO INSOMNIA 10/06/19 15:30 10/06/19 23:22 Acetaminophen (Tylenol) 650 mg PRN Q4HRS PRN PO TEMP OVER 100.4F OR MILD PAIN 10/06/19 15:30 10/07/19 08:08 Zinc Sulfate (Orazinc) 220 mg DAILY PO 10/06/19 16:00 10/07/19 08:08 Guaifenesin (Robitussin Dm) 10 ml PRN Q4HRS PRN PO COUGH 10/06/19 17:15 10/06/19 21:52 Azithromycin 250 mg/Sodium Chloride 250 ml @ 250 mls/hr Q24H IV 10/06/19 18:00 10/08/19 17:59 10/06/19 18:01 Lactobacillus Rhamnosus (Culturelle) 1 cap BID PO 10/06/19 21:00 10/07/19 08:07 Benzonatate (Tessalon Perle) 100 mg [id number] PO 10/07/19 10:00 10/07/19 09:55 Guaifenesin/ Codeine Phosphate (Robitussin Ac) 5 ml PRN Q4HRS PRN PO COUGH 10/07/19 09:45 10/07/19 09:55 Justicifation of Admission Dx: Justifications for Admission: Justification of Admission Dx: Yes Respiratory Failure: Severe Resp Distress FOUZIA LAMAR III DO Oct 07, 2019 11:04
--- NOTE | 2019-10-07 11:59 | CONS ---
DATE OF CONSULTATION: PULMONARY CONSULTATION ATTENDING PHYSICIAN: Dusty North MD REASON FOR CONSULTATION: COVID pneumonia. HISTORY OF PRESENT ILLNESS: The patient is a 54-year-old male who works for [employer]. He came to the hospital complaining of a cough, which has been nonresolving along with some diarrhea and also some shortness of breath. He was having fevers. The patient was tested COVID positive, which was on 10/02/2019. His chest x-ray revealed faint patchy infiltrates. The patient was initially placed on oxygen at 2 liters and now saturation of 98% on room air. He is still having fevers with a T-max of 100.8. He does not appear to be in any obvious respiratory distress. PAST MEDICAL HISTORY: Essentially unremarkable. SURGERIES: No recent surgeries. SOCIAL HISTORY: Nonsmoker. FAMILY HISTORY: Hypertension. ALLERGIES: None. CURRENT MEDICATIONS: Reviewed as listed in the MRAD including antibiotic, azithromycin. SYSTEM REVIEW: As discussed in my history of present illness, otherwise noncontributory. PHYSICAL EXAMINATION: GENERAL: On examination, he is in no obvious respiratory distress. VITAL SIGNS: T-max 100.8, blood pressure stable, pulse ox is now 98%. HEENT: Visual exam done due to COVID-19 pandemia. No obvious respiratory distress. SKIN: No skin rash. No leg edema. LABORATORY DATA: Reviewed. White cell count 3.5, hemoglobin 15.3, and platelets are 136. BUN and creatinine 11 and 1.0. AST 44. IMPRESSION: 1. Acute hypoxic respiratory failure secondary to COVID-19 pneumonia. 2. No underlying chronic obstructive pulmonary disease or asthma. 3. Mildly abnormal AST secondary to likely COVID infection. 4. Mild hyponatremia. RECOMMENDATIONS: 1. Currently, the patient is off oxygen and seems to be doing better. 2. Monitor fever pattern. 3. At this point, I do not see a need for adding convalescent plasma or anti-IL-6. 4. Continue empiric antibiotics. 5. Once a fever curve improves, he could be discharged home. 6. Discussed with RN. We will follow along with you. BEN GRAHAM MD DR: DENIA/anais JOB#: [id number] / [id number]
--- NOTE | 2019-10-07 16:56 | NUR ---
SW following for discharge planning. Spoke with RN and reviewed pt's chart. Pt from home and works for [employer]. Pt COVID positive. Pt on room air. Pt on oral medications. SW to continue following.
[2019-10-07] MEDS: AZITHROMYCIN 250 MG in IV NORMAL SALINE 250ML 250 ML IV SCH (18:00)
[2019-10-07 19:00] VITALS: BP 138/78
[2019-10-07] MEDS: ZOLPIDEM 5 MG TABLET. PO PRN (20:18)
[2019-10-07 23:00] VITALS: BP 137/77
[2019-10-08 03:00] VITALS: BP 124/5
[2019-10-08] MEDS: ACETAMINOPHEN 325 MG TABLET. PO PRN ×2 (03:53→07:29)
[2019-10-08 07:00] VITALS: BP 137/76
[2019-10-08] MEDS: ENOXAPARIN 40 MG/0.4 ML SYRINGE. SQ SCH (07:26)
[2019-10-08] MEDS: BENZONATATE 100 MG CAPSULE. PO SCH (07:29)
[2019-10-08] MEDS: ZINC SULFATE 220 MG CAPSULE. PO SCH (07:29)
[2019-10-08] MEDS: guaiFENesin/CODEINE 100mg/10mg 5 ML LIQUID PO PRN (07:29)
[2019-10-08] MEDS: LACTOBACILLUS RHAMNOSUS GG 1 CAPSULE. PO SCH (07:29)
[2019-10-08] MEDS ORDERED: ALPRAZolam 0.5 MG TABLET PO PRN (08:45)
--- NOTE | 2019-10-08 09:44 | PDOC ---
PULMONARY PROGRESS NOTES Subjective NO SOA REMAINS ON RA Vitals Vital Signs Date Time Temp Pulse Resp B/P (MAP) Pulse Ox O2 Delivery O2 Flow Rate FiO2 10/08/19 07:00 99.6 84 16 137/76 (96) 96 Room Air 99.6 10/07/19 08:00 2.0 Comments visual exam done no soa no rash Lungs: Other (Clear but a lot of coughing) Labs Laboratory Tests Test 10/06/19 13:25 10/06/19 17:40 White Blood Count 3.5 x10^3/uL (4.0-11.0) Red Blood Count 4.79 x10^6/uL (4.30-5.70) Hemoglobin 15.3 g/dL (13.0-17.5) Hematocrit 43.0 % (39.0-53.0) Mean Corpuscular Volume 90 fL (79-100) Mean Corpuscular Hemoglobin 32 pg (25-35) Mean Corpuscular Hemoglobin Concent 36 g/dL (31-37) Red Cell Distribution Width 13.1 % (11.5-14.5) Platelet Count 136 x10^3/uL (140-400) Neutrophils (%) (Auto) 60 % (31-73) Lymphocytes (%) (Auto) 34 % (24-48) Monocytes (%) (Auto) 6 % (0-9) Eosinophils (%) (Auto) 0 % (0-3) Basophils (%) (Auto) 0 % (0-3) Neutrophils # (Auto) 2.1 x10^3/uL (1.8-7.7) Lymphocytes # (Auto) 1.2 x10^3/uL (1.0-4.8) Monocytes # (Auto) 0.2 x10^3/uL (0.0-1.1) Eosinophils # (Auto) 0.0 x10^3/uL (0.0-0.7) Basophils # (Auto) 0.0 x10^3/uL (0.0-0.2) Sodium Level 132 mmol/L (136-145) Potassium Level 3.7 mmol/L (3.5-5.1) Chloride Level 97 mmol/L (98-107) Carbon Dioxide Level 29 mmol/L (21-32) Anion Gap 6 (6-14) Blood Urea Nitrogen 11 mg/dL (8-26) Creatinine 1.0 mg/dL (0.7-1.3) Estimated GFR (Cockcroft-Gault) 77.9 BUN/Creatinine Ratio 11 (6-20) Glucose Level 108 mg/dL (70-99) Calcium Level 8.5 mg/dL (8.5-10.1) Magnesium Level 2.0 mg/dL (1.8-2.4) Total Bilirubin 0.4 mg/dL (0.2-1.0) Aspartate Amino Transf (AST/SGOT) 44 U/L (15-37) Alanine Aminotransferase (ALT/SGPT) 59 U/L (16-63) Alkaline Phosphatase 75 U/L (46-116) Troponin I Quantitative < 0.017 ng/mL (0.000-0.055) Total Protein 7.6 g/dL (6.4-8.2) Albumin 3.6 g/dL (3.4-5.0) Albumin/Globulin Ratio 0.9 (1.0-1.7) Lactic Acid Level 1.1 mmol/L (0.4-2.0) Medications Active Scripts Medications Dose Route/Sig Max Daily Dose Days Date Category Proair Hfa Inhaler (Albuterol Sulfate) 8.5 Gm Hfa.aer.ad 2 Puff IH PRN Q4-6HRS PRN 21 10/06/19 Rx Mucinex Dm Er 600-30 Mg Tablet (Guaifenesin/Dextromethorphan) 1 Each Tab.er.12h 1 Tab PO PRN BID PRN 14 10/06/19 Rx Tylenol With Codeine #3 Tablet (Acetaminophen/Codeine Phosphate) 1 Each Tablet 1 Tab PO PRN Q8HRS PRN 10/06/19 Rx Zithromax (Azithromycin) 500 Mg Tablet 1 Tab PO DAILY 10/02/19 Rx Impression . 1. Acute hypoxic respiratory failure secondary to COVID-19 pneumonia. 2. No underlying chronic obstructive pulmonary disease or asthma. 3. Mildly abnormal AST secondary to likely COVID infection. 4. Mild hyponatremia. Plan . 1. Currently, the patient is off oxygen and seems to be doing better. 2. Monitor fever pattern. 3. At this point, I do not see a need for adding convalescent plasma or anti-IL-6. 4. Continue empiric antibiotics. 5. , he could be discharged home.and monitor fever at home 6. Discussed with RN. ok with dc home self isolation at home. BEN GRAHAM MD Oct 08, 2019 09:44
--- NOTE | 2019-10-08 10:15 | PDOC ---
[facility] PROGRESS NOTE Chief Complaint Chief Complaint Respiratory failure COVID-19 positive History of Present Illness History of Present Illness 10/08/2019 Patient seen and examined Discussed with RN Discussed with case management Plan is discharge and I told the patient to stay home for a week or so 10/07/2019 Patient seen and examined Chart reviewed Discussed with RN Patient still having fevers and a lot of coughing Vitals/I&O Vitals/I&O: Vital Signs Date Time Temp Pulse Resp B/P (MAP) Pulse Ox O2 Delivery O2 Flow Rate FiO2 10/08/19 07:00 99.6 84 16 137/76 (96) 96 Room Air 99.6 10/07/19 08:00 2.0 I & O 10/07/19 10/07/19 10/08/19 15:00 23:00 07:00 Intake Total 900 ml 840 ml 800 ml Balance 900 ml 840 ml 800 ml Physical Exam General: Alert, Oriented X3, Cooperative, moderate distress Heart: Regular rate Lungs: Other (Clear but a lot of coughing) Abdomen: Normal bowel sounds, Soft, No tenderness, No hepatosplenomegaly, No masses Extremities: No clubbing, No cyanosis, No edema, Normal pulses, No tenderness/swelling Skin: No rashes, No breakdown, No significant lesion Review of Systems Review of Systems: No complaints wants to go home Assessment and Plan Assessmemt and Plan Problems Medical Problems: (1) COVID-19 Status: Plan is discharge Comment Review of Relevant I have reviewed the following items alyssa (where applicable) has been applied. Justicifation of Admission Dx: Justifications for Admission: Justification of Admission Dx: Yes Respiratory Failure: Severe Resp Distress FOUZIA LAMAR III DO Oct 08, 2019 10:15
--- NOTE | 2019-10-08 11:28 | DS ---
DATE OF DISCHARGE: 10/08/2019 ADMISSION DIAGNOSES: Respiratory failure, COVID-19 positive and hypoxia. DISCHARGE DIAGNOSIS: Resolving COVID-19, resolving hypoxia. CONSULTS: Dr. Salguero. PROCEDURES: None. HOSPITAL COURSE: The patient is a pleasant middle-aged male who basically presented with COVID-19 symptoms. He works at [employer]. He did test positive for COVID-19. When he first arrived, he was coughing, had shortness of breath and some abdominal pain. We admitted the patient and consulted Dr. Salguero. We gave him antibiotics. Over the past couple of days, he is doing much better this morning, I saw him and examined him. His heart tones were normal. Lungs are clear, his cough has resolved. Discussed the case with the nurse. She discussed the case with Dr. Salguero. The plan is to go ahead and let the patient go home and I am going to ask him to stay home for another week to be safe. DISPOSITION: Home. ACTIVITY: As tolerated. DIET: Low sodium. MEDICATIONS: Please see the MRAD. TOTAL TIME: 32 minutes. FOUZIA LAMAR DO DR: PARIS/anais JOB#: [id number] / [id number]
--- NOTE | 2019-10-08 13:46 | NUR ---
Discharge Note: MELITA LEDEZMA [facility] Discharge instructions and discharge home medications reviewed with Patient and a copy given. All questions have been answered and understanding verbalized. The following instructions and handouts were given: DREAID 19 Discontinued lines and drains: Peripheral IV intact. Patient discharged to Home or Self Care with Self via Wheelchair
[2019-10-08] MEDS ORDERED: ACETAMINOPHEN 325 MG TABLET. PO SCH (14:00)
--- NOTE | 2019-10-08 15:02 | NUR ---
SW following for discharge planning. Discharge orders received. Spoke with RN and reviewed pt's chart. Pt to discharge home self-care. Pt on room air and oral medications. No further SW needs identified at this time.
== END 2019-10-08 13:47 | disposition home or self-care (01) | DRG 871 ==
LOC: ER 13:05 → 6 SOUTH 14:57
PROVIDERS: ADMIT Internal Medicine; ATTEND Internal Medicine
DX: A41.89 Other specified sepsis (principal); U07.1 COVID-19; J96.01 Acute respiratory failure with hypoxia; J12.89 Other viral pneumonia; E87.1 Hypo-osmolality and hyponatremia; R10.9 Unspecified abdominal pain; R94.5 Abnormal results of liver function studies; R74.0 Nonspecific elevation of levels of transaminase and lactic acid dehydrogenase [LDH]; R19.7 Diarrhea, unspecified; D72.819 Decreased white blood cell count, unspecified; Z82.49 Family history of ischemic heart disease and other diseases of the circulatory system
CPT/HCPCS: 36415; 71045; 80053; 83605; 83735; 84484; 85025; 93005; 94640; J0456; J1650; J7050; 99285-25; G0378; J7030

== ENCOUNTER 2019-10-09 07:00 | Inpatient (IN) | payer BC ==
[~2019-10-09] VITALS: Ht 175.3 cm; Wt 97.7 kg
[~2019-10-09 07:00] MED LIST changes: +ACET-704 PO; +ALBU2.5V8 IH; +GUAI-108 PO
[2019-10-09 08:14] LABS: BASO % 0 % (0-3); EOS % 0 % (0-3); HEMATOCRIT 38.7 % (39.0-53.0); HEMOGLOBIN 13.8 g/dL (13.0-17.5); LYMPH # 0.5 x10^3/uL (1.0-4.8); LYMPH % 15 % (24-48); MEAN CORPUSCULAR HEMOGLOBIN 32 pg (25-35); MEAN CORPUSCULAR HGB CONC 36 g/dL (31-37); MEAN CORPUSCULAR VOLUME 89 fL (79-100); MONO # 0.1 x10^3/uL (0.0-1.1); MONO % 3 % (0-9); NEUT # 2.9 x10^3/uL (1.8-7.7); NEUT % 82 % (31-73); PLATELET COUNT 175 x10^3/uL (140-400); RED BLOOD COUNT 4.35 x10^6/uL (4.30-5.70); RED CELL DISTRIBUTION WIDTH 12.8 % (11.5-14.5); WHITE BLOOD COUNT 3.5 x10^3/uL (4.0-11.0)
[2019-10-09] MEDS ORDERED: ACETAMINOPHEN 325 MG TABLET. PO ONE ×3 (08:15)
[2019-10-09 08:19] LABS: PROTHROMBIN TIME PATIENT 13.9 SEC (11.7-14.0)
[2019-10-09 08:20] LABS: CALCIUM 8.6 mg/dL (8.5-10.1); CREATININE 0.8 mg/dL (0.7-1.3); GFR 100.7; POTASSIUM 3.5 mmol/L (3.5-5.1)
[2019-10-09 08:26] LABS: ALBUMIN 3.3 g/dL (3.4-5.0); TOTAL BILIRUBIN 0.5 mg/dL (0.2-1.0); TOTAL PROTEIN 6.5 g/dL (6.4-8.2)
--- NOTE | 2019-10-09 08:41 | RAD ---
EXAM: CHEST AP ONLY INDICATION: Reason: cough, soa, COVID-19 POSITIVE / Spl. Instructions: / History: . TECHNIQUE: Single view COMPARISON: 10/06/2019 chest x-ray FINDINGS: The heart size is normal. The great vessels appear unremarkable. There is no hilar or mediastinal mass. Lungs show bilateral reticulonodular opacities greater on the left than on the right, more apparent in the interval. There persists evidence of mild pulmonary vascular congestion centrally. There is no pleural effusion or pneumothorax. There are no significant osseous abnormalities. IMPRESSION: Evidence of worsening lung aeration with more conspicuous bilateral reticulonodular densities. This could reflect a combination of pulmonary vascular congestion and atypical infection. Correlate clinically. Electronically signed by: Denisa Ibarra MD (10/09/2019 8:38 AM) [id number]
--- NOTE | 2019-10-09 09:29 | PHYS DOC ---
Past Medical History Past Medical History: No Pertinent History Past Surgical History: No Surgical History Smoking Status: Never Smoker Alcohol Use: None General Adult EDM: Chief Complaint: SHORTNESS OF BREATH HPI: HPI: Patient is a 54 year old male who presented to ER today for evaluation due to fever, headache, chest pain, cough and trouble breathing. Patient had this symptom for about a week, he was evaluated here on October 01, test positive for COVID-19, he was put on Zithromax. Patient was then came back here on October 05 for the same problem, he was admitted to hospital because of hypoxia. Patient improved during the hospitalization, he was discharged home yesterday. Patient was told to take epkf-ioa-bclcmky cough medication. Patient was not discharged home with any antibiotic. Patient said he could not sleep last night because of fever chills headache, and pain on his chest whenever he coughs. Patient woke up this morning having multiple episodes of cough, nonproductive in nature so he came back here for evaluation. Review of Systems: Review of Systems: Constitutional: Positive for fever or chills. [] Eyes: Denies change in visual acuity. [] HENT: Denies nasal congestion or sore throat. [] Respiratory: Positive for cough or shortness of breath. [] Cardiovascular: Positive for chest pain, no edema. [] GI: Denies abdominal pain, nausea, vomiting, bloody stools or diarrhea. [] : Denies dysuria. [] Musculoskeletal: Denies back pain or joint pain. [] Integument: Denies rash. [] Neurologic: Denies headache, focal weakness or sensory changes. [] Endocrine: Denies polyuria or polydipsia. [] Lymphatic: Denies swollen glands. [] Psychiatric: Denies depression or anxiety. [] Heart Score: Risk Factors: Risk Factors: DM, Current or recent (<one month) smoker, HTN, HLP, family history of CAD, obesity. Risk Scores: Score 0 - 3: 2.5% MACE over next 6 weeks - Discharge Home Score 4 - 6: 20.3% MACE over next 6 weeks - Admit for Clinical Observation Score 7 - 10: 72.7% MACE over next 6 weeks - Early Invasive Strategies Current Medications: Current Medications Medications (Trade) Dose Ordered Sig/Melissa Start Time Stop Time Status Last Admin Dose Admin Acetaminophen (Tylenol) 650 mg 1X ONCE 10/09/19 08:15 10/09/19 08:16 DC 10/09/19 08:07 650 MG Allergies: Allergies: Allergies Coded Allergies Type Severity Reaction Last Updated Verified No Known Drug Allergies 10/02/19 No Physical Exam: PE: Constitutional: Well developed, well nourished, no acute distress, non-toxic appearance. [] HENT: Normocephalic, atraumatic, bilateral external ears normal, oropharynx moist, no oral exudates, nose normal. [] Eyes: PERRLA, EOMI, conjunctiva normal, no discharge. [] Neck: Normal range of motion, no tenderness, supple, no stridor. [] Cardiovascular:Heart rate regular rhythm, no murmur [] Lungs & Thorax: Bilateral breath sounds with crackles diffusely, no respiratory distress, there is mild tachypnea. Abdomen: Bowel sounds normal, soft, no tenderness, no masses, no pulsatile mas ses. [] Skin: Warm, dry, no erythema, no rash. [] Back: No tenderness, no CVA tenderness. [] Extremities: No tenderness, no cyanosis, no clubbing, ROM intact, no edema. [] Neurologic: Alert and oriented X 3, normal motor function, normal sensory function, no focal deficits noted. [] Psychologic: Affect normal, judgement normal, mood normal. [] Current Patient Data: Labs: Laboratory Tests Test 10/09/19 07:57 White Blood Count 3.5 x10^3/uL (4.0-11.0) L Red Blood Count 4.35 x10^6/uL (4.30-5.70) Hemoglobin 13.8 g/dL (13.0-17.5) Hematocrit 38.7 % (39.0-53.0) L Mean Corpuscular Volume 89 fL (79-100) Mean Corpuscular Hemoglobin 32 pg (25-35) Mean Corpuscular Hemoglobin Concent 36 g/dL (31-37) Red Cell Distribution Width 12.8 % (11.5-14.5) Platelet Count 175 x10^3/uL (140-400) Neutrophils (%) (Auto) 82 % (31-73) H Lymphocytes (%) (Auto) 15 % (24-48) L Monocytes (%) (Auto) 3 % (0-9) Eosinophils (%) (Auto) 0 % (0-3) Basophils (%) (Auto) 0 % (0-3) Neutrophils # (Auto) 2.9 x10^3/uL (1.8-7.7) Lymphocytes # (Auto) 0.5 x10^3/uL (1.0-4.8) L Monocytes # (Auto) 0.1 x10^3/uL (0.0-1.1) Eosinophils # (Auto) 0.0 x10^3/uL (0.0-0.7) Basophils # (Auto) 0.0 x10^3/uL (0.0-0.2) Prothrombin Time 13.9 SEC (11.7-14.0) Prothrombin Time INR 1.1 (0.8-1.1) Activated Partial Thromboplast Time 41 SEC (24-38) H Sodium Level 134 mmol/L (136-145) L Potassium Level 3.5 mmol/L (3.5-5.1) Chloride Level 95 mmol/L (98-107) L Carbon Dioxide Level 25 mmol/L (21-32) Anion Gap 14 (6-14) Blood Urea Nitrogen 12 mg/dL (8-26) Creatinine 0.8 mg/dL (0.7-1.3) Estimated GFR (Cockcroft-Gault) 100.7 BUN/Creatinine Ratio 15 (6-20) Glucose Level 133 mg/dL (70-99) H Lactic Acid Level 0.8 mmol/L (0.4-2.0) Calcium Level 8.6 mg/dL (8.5-10.1) Total Bilirubin 0.5 mg/dL (0.2-1.0) Aspartate Amino Transferase (AST) 75 U/L (15-37) H Alanine Aminotransferase (ALT) 79 U/L (16-63) H Alkaline Phosphatase 88 U/L (46-116) Troponin I Quantitative < 0.017 ng/mL (0.000-0.055) Total Protein 6.5 g/dL (6.4-8.2) Albumin 3.3 g/dL (3.4-5.0) L Albumin/Globulin Ratio 1.0 (1.0-1.7) Laboratory Tests 10/09/19 07:57 Laboratory Tests 10/09/19 07:57 Vital Signs: Vital Signs Date Time Temp Pulse Resp B/P (MAP) Pulse Ox O2 Delivery O2 Flow Rate FiO2 10/09/19 07:37 98.2 83 20 144/82 (102) 95 Room Air 98.2 EKG: EKG: EKG was done at 738, heart rate of 80 bpm, no ST segment elevation. Sinus rhythm. Radiology/Procedures: Radiology/Procedures: [][facility] [address] [place] [address] IMAGING REPORT Signed PATIENT: TANYA LEDEZMA ACCOUNT: [id number] : 1965 LOCATION: ER AGE: 54 SEX: M EXAM STATUS: REG ER ORD. PHYSICIAN: ANNA MARIE CORNEJO DO REASON: cough, soa, COVID-19 POSITIVE PROCEDURE: CHEST AP ONLY EXAM: CHEST AP ONLY INDICATION: Reason: cough, soa, COVID-19 POSITIVE / Spl. Instructions: / History: . TECHNIQUE: Single view COMPARISON: 10/06/2019 chest x-ray FINDINGS: The heart size is normal. The great vessels appear unremarkable. There is no hilar or mediastinal mass. Lungs show bilateral reticulonodular opacities greater on the left than on the right, more apparent in the interval. There persists evidence of mild pulmonary vascular congestion centrally. There is no pleural effusion or pneumothorax. There are no significant osseous abnormalities. IMPRESSION: Evidence of worsening lung aeration with more conspicuous bilateral reticulonodular densities. This could reflect a combination of pulmonary vascular congestion and atypical infection. Correlate clinically. Electronically signed by: Funmilayo Ibarra MD (10/09/2019 8:38 AM) [id number] DICTATED and SIGNED BY: FUNMILAYO IBARRA MD DATE: 10/09/19 0838 Course & Med Decision Making: Course & Med Decision Making Pertinent Labs and Imaging studies reviewed. (See chart for details) Patient is a 54-year-old male who is currently infected with COVID-19 presented with chest pain cough fever and chills and trouble breathing, his chest x-ray showed worsening bilateral infiltration. Patient will need to be admitted to hospital for IV antibiotics. Discussed the case with Dr. North who agreed to admit the patient COVID-19 CRITERIA: The patient was evaluated during the global COVID-19 pandemic, and that diagnosis was suspected/considered upon their initial presentation. Their evaluation, treatment and testing was consistent with current guidelines for patients who present with complaints or symptoms that may be related to COVID-19. Dragon Disclaimer: Dragon Disclaimer: This electronic medical record was generated, in whole or in part, using a voice recognition dictation system. Departure Departure Impression: Primary Impression: COVID-19 virus infection Additional Impression: Pneumonia Disposition: ADMITTED INPATIENT Admitting Physician: JORGE LUIS (Dr. North) Condition: STABLE Referrals: NO PCP (PCP) Justicifation of Admission Dx: Justifications for Admission: Justification of Admission Dx: Yes Respiratory Failure: Severe Resp Distress Comminuty Aquired Pneumonia: Out Pt Tx Failure ANNA MARIE CORNEJO DO Oct 09, 2019 09:29
[2019-10-09] MEDS ORDERED: PIPERACILLIN/TAZOBACTAM 3.375 GM in IV NORMAL SALINE 50ML 50 ML IV ONE (09:30)
--- NOTE | 2019-10-09 09:39 | PDOC1 ---
History and Physical Date of Admission Date of Admission DATE: 10/09/19 TIME: 09:38 Identification/Chief Complaint Chief Complaint Worsening shortness of breath Source Source: Chart review, Patient History of Present Illness History of Present Illness Mr Kruse is a 54 yo M who presented to ER today for evaluation due to fever, headache, abdominal and chest pain, cough, and trouble breathing. He recently returned to work at and was admitted for the same symptoms he currently has on 10/06/2019, and discharged with improvement in his cough and shortness of breath on 10/08/2019. 24 hours later he returns with recurrent shortness of breath and persistent cough as well as abdominal pain and headache. Severe unrelenting nonproductive cough, associated with mild dyspnea. He has been having nausea and now less diarrhea, but some abdominal fullness. His sense of taste has returned slightly. Having trouble getting a deep breath, air hunger symptoms. COVID screen was positive on 10/02/2019. Could not sleep last night because of fever chills headache, and pain on his chest whenever he coughs. Patient woke up this morning having multiple episodes of cough, nonproductive in nature so he came back here for evaluation. Labs significant for WBC 3.5, platelets 175, Na 134, K 3.5, AST 75, ALT 79, aPTT 41, INR 1.1, troponin negative. CXR with worse congestion and reticuonodular opacities. EKG Sinus rhythm. Heart rate 92. Normal intervals. No STEMI. Admitted for further treatment. Past Medical History Cardiovascular: No pertinent hx Past Surgical History Past Surgical History: No pertinent history Family History Family History: Hypertension Social History Smoke: No ALCOHOL: none Drugs: None Current Medications Current Medications Current Medications Acetaminophen (Tylenol) 650 mg 1X ONCE PO ; Start 10/09/19 at 08:15; Stop 10/09/19 at 08:16; Status Cancel Acetaminophen (Tylenol) 1,000 mg 1X ONCE PO ; Start 10/09/19 at 08:15; Stop 10/09/19 at 08:16; Status Cancel Acetaminophen (Tylenol) 650 mg 1X ONCE PO Last administered on 10/09/19at 08:07; Start 10/09/19 at 08:15; Stop 10/09/19 at 08:16; Status DC Piperacillin Sod/ Tazobactam Sod 3.375 gm/Sodium Chloride 50 ml @ 100 mls/hr 1X ONCE IV ; Start 10/09/19 at 09:30; Stop 10/09/19 at 09:59 Active Scripts Active Proair Hfa Inhaler (Albuterol Sulfate) 8.5 Gm Hfa.aer.ad 2 Puff IH PRN Q4-6HRS PRN 21 Days Mucinex Dm Er 600-30 Mg Tablet (Guaifenesin/Dextromethorphan) 1 Each Tab.er.12h 1 Tab PO PRN BID PRN 14 Days Tylenol With Codeine #3 Tablet (Acetaminophen/Codeine Phosphate) 1 Each Tablet 1 Tab PO PRN Q8HRS PRN Zithromax (Azithromycin) 500 Mg Tablet 1 Tab PO DAILY Allergies Allergies: Coded Allergies: No Known Drug Allergies (Unverified , 10/02/19) PT REPORTS NKDA ROS General: YES: Chills, Night Sweats, Fatigue, Malaise, Appetite; No: Other PSYCHOLOGICAL ROS: No: Anxiety, Behavioral Disorder, Concentration difficultie, Decreased libido, Depression, Disorientation, Hallucinations, Hostility, Irritablity, Memory difficulties, Mood Swings, Obsessive thoughts, Physical abuse, Sexual abuse, Sleep disturbances, Suicidal ideation, Other Eyes: No Blurry vision, No Decreased vision, No Double vision, No Dry eyes, No Excessive tearing, No Eye Pain, No Itchy Eyes, No Loss of vision, No Photophobia, No Scotomata, No Uses contacts, No Uses glasses, No Other HEENT: YES: Heacaches, Visual Changes; No: Hearing change, Nasal congestion, Nasal discharge, Oral lesions, Sinus pain, Sore Throat, Epistaxis, Sneezing, Snoring, Tinnitus, Vertigo, Vocal changes, Other ALLERGY AND IMMUNOLOGY: No: Hives, Insect Bite Sensitivity, Itchy/Watery Eyes, Nasal Congestion, Post Nasal Drip, Seasonal Allergies, Other Hematological and Lymphatic: No: Bleeding Problems, Blood Clots, Blood Transfusions, Brusing, Night Sweats, Pallor, Swollen Lymph Nodes, Other ENDOCRINE: No: Breast Changes, Galactorrhea, Hair Pattern Changes, Hot Flashes, Malaise/lethargy, Mood Swings, Palpitations, Polydipsia/polyuria, Skin Changes, Temperature Intolerance, Unexpected Weight Changes, Other Breast: No New/Changing Breast Lumps, No Nipple changes, No Nipple discharge, No Other Respiratory: YES: Cough, Pleuritic Pain, Shortness of breath, SOB with excertion, Tachypnea, Wheezing; No: Hemoptysis, Orthopnea, Sputum Changes, Stridor, Other Cardiovascular: yes Chest Pain; No Palpitations, No Orthopnea, No Paroxysmal Noc. Dyspnea, No Edema, No Lt Headedness, No Other Gastrointestinal: Yes Nausea, Yes Abdominal Pain; No Vomiting, No Diarrhea, No Constipation, No Melena, No Hematochezia, No Other Genitourinary: No Dysuria, No Frequency, No Incontinence, No Hematuria, No Retention, No Discharge, No Urgency, No Pain, No Flank Pain, No Other, No , No , No , No , No , No , No Musculoskeletal: No Gait Disturbance, No Joint Pain, No Joint Stiffness, No Joint Swelling, No Muscle Pain, No Muscular Weakness, No Pain In:, No Swelling In:, No Other Neurological: No Behavorial Changes, No Bowel/Bladder ControlChng, No Confusion, No Dizziness, No Gait Disturbance, No Headaches, No Impaired Coord/balance, No Memory Loss, No Numbness/Tingling, No Seizures, No Speech Problems, No Tremors, No Visual Changes, No Weakness, No Other Skin: No Dry Skin, No Eczema, No Hair Changes, No Lumps, No Mole Changes, No Mottling, No Nail Changes, No Pruritus, No Rash, No Skin Lesion Changes, No Other, No Acne Physical Exam General: Alert, Oriented X3, Cooperative, moderate distress HEENT: Atraumatic, PERRLA, EOMI, Mucous membr. moist/pink Lungs: Other (Wheezes and crackles) Heart: S1S2, RRR, no thrills, no rubs, no gallops, no murmurs Abdomen: Normal bowel sounds, Soft, No tenderness, No hepatosplenomegaly, No masses Rectal Exam: not examined Extremities: No clubbing, No cyanosis, No edema, Normal pulses, No tenderness/swelling Skin: No rashes, No breakdown, No significant lesion Neuro: Normal gait, Normal speech, Strength at 5/5 X4 ext, Normal tone, Sensation intact, Cranial nerves 3-12 NL, Reflexes 2+ Psych/Mental Status: Mental status NL, Mood NL Vitals Vitals Vital Signs Date Time Temp Pulse Resp B/P (MAP) Pulse Ox O2 Delivery O2 Flow Rate FiO2 10/09/19 07:37 98.2 83 20 144/82 (102) 95 Room Air 98.2 Labs Labs Laboratory Tests Test 10/09/19 07:57 White Blood Count 3.5 x10^3/uL (4.0-11.0) Red Blood Count 4.35 x10^6/uL (4.30-5.70) Hemoglobin 13.8 g/dL (13.0-17.5) Hematocrit 38.7 % (39.0-53.0) Mean Corpuscular Volume 89 fL (79-100) Mean Corpuscular Hemoglobin 32 pg (25-35) Mean Corpuscular Hemoglobin Concent 36 g/dL (31-37) Red Cell Distribution Width 12.8 % (11.5-14.5) Platelet Count 175 x10^3/uL (140-400) Neutrophils (%) (Auto) 82 % (31-73) Lymphocytes (%) (Auto) 15 % (24-48) Monocytes (%) (Auto) 3 % (0-9) Eosinophils (%) (Auto) 0 % (0-3) Basophils (%) (Auto) 0 % (0-3) Neutrophils # (Auto) 2.9 x10^3/uL (1.8-7.7) Lymphocytes # (Auto) 0.5 x10^3/uL (1.0-4.8) Monocytes # (Auto) 0.1 x10^3/uL (0.0-1.1) Eosinophils # (Auto) 0.0 x10^3/uL (0.0-0.7) Basophils # (Auto) 0.0 x10^3/uL (0.0-0.2) Prothrombin Time 13.9 SEC (11.7-14.0) Prothromb Time International Ratio 1.1 (0.8-1.1) Activated Partial Thromboplast Time 41 SEC (24-38) Sodium Level 134 mmol/L (136-145) Potassium Level 3.5 mmol/L (3.5-5.1) Chloride Level 95 mmol/L (98-107) Carbon Dioxide Level 25 mmol/L (21-32) Anion Gap 14 (6-14) Blood Urea Nitrogen 12 mg/dL (8-26) Creatinine 0.8 mg/dL (0.7-1.3) Estimated GFR (Cockcroft-Gault) 100.7 BUN/Creatinine Ratio 15 (6-20) Glucose Level 133 mg/dL (70-99) Lactic Acid Level 0.8 mmol/L (0.4-2.0) Calcium Level 8.6 mg/dL (8.5-10.1) Total Bilirubin 0.5 mg/dL (0.2-1.0) Aspartate Amino Transf (AST/SGOT) 75 U/L (15-37) Alanine Aminotransferase (ALT/SGPT) 79 U/L (16-63) Alkaline Phosphatase 88 U/L (46-116) Troponin I Quantitative < 0.017 ng/mL (0.000-0.055) Total Protein 6.5 g/dL (6.4-8.2) Albumin 3.3 g/dL (3.4-5.0) Albumin/Globulin Ratio 1.0 (1.0-1.7) Laboratory Tests Test 10/09/19 07:57 White Blood Count 3.5 x10^3/uL (4.0-11.0) Red Blood Count 4.35 x10^6/uL (4.30-5.70) Hemoglobin 13.8 g/dL (13.0-17.5) Hematocrit 38.7 % (39.0-53.0) Mean Corpuscular Volume 89 fL (79-100) Mean Corpuscular Hemoglobin 32 pg (25-35) Mean Corpuscular Hemoglobin Concent 36 g/dL (31-37) Red Cell Distribution Width 12.8 % (11.5-14.5) Platelet Count 175 x10^3/uL (140-400) Neutrophils (%) (Auto) 82 % (31-73) Lymphocytes (%) (Auto) 15 % (24-48) Monocytes (%) (Auto) 3 % (0-9) Eosinophils (%) (Auto) 0 % (0-3) Basophils (%) (Auto) 0 % (0-3) Neutrophils # (Auto) 2.9 x10^3/uL (1.8-7.7) Lymphocytes # (Auto) 0.5 x10^3/uL (1.0-4.8) Monocytes # (Auto) 0.1 x10^3/uL (0.0-1.1) Eosinophils # (Auto) 0.0 x10^3/uL (0.0-0.7) Basophils # (Auto) 0.0 x10^3/uL (0.0-0.2) Prothrombin Time 13.9 SEC (11.7-14.0) Prothromb Time International Ratio 1.1 (0.8-1.1) Activated Partial Thromboplast Time 41 SEC (24-38) Sodium Level 134 mmol/L (136-145) Potassium Level 3.5 mmol/L (3.5-5.1) Chloride Level 95 mmol/L (98-107) Carbon Dioxide Level 25 mmol/L (21-32) Anion Gap 14 (6-14) Blood Urea Nitrogen 12 mg/dL (8-26) Creatinine 0.8 mg/dL (0.7-1.3) Estimated GFR (Cockcroft-Gault) 100.7 BUN/Creatinine Ratio 15 (6-20) Glucose Level 133 mg/dL (70-99) Lactic Acid Level 0.8 mmol/L (0.4-2.0) Calcium Level 8.6 mg/dL (8.5-10.1) Total Bilirubin 0.5 mg/dL (0.2-1.0) Aspartate Amino Transf (AST/SGOT) 75 U/L (15-37) Alanine Aminotransferase (ALT/SGPT) 79 U/L (16-63) Alkaline Phosphatase 88 U/L (46-116) Troponin I Quantitative < 0.017 ng/mL (0.000-0.055) Total Protein 6.5 g/dL (6.4-8.2) Albumin 3.3 g/dL (3.4-5.0) Albumin/Globulin Ratio 1.0 (1.0-1.7) Images Images CXR: The heart size is normal. The great vessels appear unremarkable. There is no hilar or mediastinal mass. Lungs show bilateral reticulonodular opacities greater on the left than on the right, more apparent in the interval. There persists evidence of mild pulmonary vascular congestion centrally. There is no pleural effusion or pneumothorax. There are no significant osseous abnormalities. IMPRESSION: Evidence of worsening lung aeration with more conspicuous bilateral reticulonodular densities. This could reflect a combination of pulmonary vascular congestion and atypical infection. Correlate clinically. VTE Prophylaxis Ordered VTE Prophylaxis Devices: No VTE Pharmacological Prophylaxi: Yes Assessment/Plan Assessment/Plan A/P: Acute pneumonia - with worsening COVID 19 symptoms. He had been on azithromycin inpatient a few days ago, will cont IV doses. therapeutic lovenox, consult Pulmonology and ID for defervescence, may consider remdesevir. COVID 19 - with leukopenia, CXR findings worsening, abnormal LFTs, consistent with viral syndrome. Will cont supportive care. Pulm consulted. Anti-tussives, anticoagulation Transaminitis - related to COVID 19, will monitor Diarrhea - will monitor stools, check c. diff per protocol if continued loose stools Sepsis - due to COVID 19, will cont above care, lactate negative. Headache - likely related to disease, will treat expectantly with tylenol FEN - General diet PPX - lovenox FULL CODE Dispo - inpatient at least 2 midnights. COVID-19 CRITERIA: The patient was evaluated during the global COVID-19 pandemic, and that diagnosis was suspected/considered upon their initial presentation. Their evaluation, treatment and testing was consistent with current guidelines for patients who present with complaints or symptoms that may be related to COVID-19. Justicifation of Admission Dx: Justifications for Admission: Justification of Admission Dx: Yes Respiratory Failure: Severe Resp Distress VIOLA SOMMERS MD Oct 09, 2019 09:39
--- NOTE | 2019-10-09 12:58 | CONS ---
DATE OF CONSULTATION: 10/09/2019 I was asked to see this 54-year-old gentleman for COVID-19 and abnormal chest x-ray. HISTORY OF PRESENT ILLNESS: The patient was in the Emergency Room on 10/02/2019 and was diagnosed with COVID-19, was sent home with azithromycin. He was admitted on 10/06/2019, started on Rocephin and azithromycin, was sent home yesterday. He is back again today with shortness of breath, cough, chest tightness and headache. he has has diarrhea for the past few days. He denies fever and chills. PAST MEDICAL HISTORY: COVID-19 positive as mentioned above. SOCIAL HISTORY: Nonsmoker. FAMILY HISTORY: Hypertension. ALLERGIES: No known drug allergies. MEDICATIONS: The patient was given Zosyn in the Emergency Room. REVIEW OF SYSTEMS: As mentioned as above, other systems are otherwise negative. PHYSICAL EXAMINATION: VITAL SIGNS: His O2 saturation on room air is 95%, respiratory rate 20, heart rate 83, blood pressure 144/82, temperature 98.2. GENERAL: This is an overweight gentleman. He is not in respiratory distress. He does cough constantly. He does not have paradoxical abdominal motion. SKIN: There is no rash, no edema. NEUROLOGIC: He is alert and oriented. LABORATORY DATA: I reviewed the following lab data: Chest x-ray shows bilateral patchy infiltrate, left more right, worse. worse than previous cxr. WBC 3.5, hemoglobin 13.8, platelet 175. Sodium 134, potassium 3.5, chloride 95, CO2 of 25, glucose 133, BUN 12, creatinine 0.8. Troponin less than 0.01. Procalcitonin 0.1. Total bilirubin 0.5, AST 75, ALT 79. IMPRESSION: 1. Abnormal chest x-ray in a COVID-19 positive patient secondary to COVID-19 pneumonia, cannot rule out bacterial pneumonia. 2. Abnormal chest x-ray. 3. Mildly elevated AST and ALT, suspect secondary to COVID-19. 4. Leukopenia. 5. Mild hyponatremia. PLAN AND RECOMMENDATIONS: 1. Titrate FiO2 to keep O2 saturation more than 94%. 2. Agree with antibiotic Zosyn and azithromycin. 3. Start aggressive DVT prophylaxis. 4. Lovenox 40 mg subcutaneous b.i.d. 5. I do recommend ID consultation. his respiratory symptoms and cxr worsening, he may be a candidate for remdesivir. 6. Monitor respiratory status very closely. 7. Protonix for stress ulcer prophylaxis. 8. Discussed with Dr. North. Thank you very much for allowing me to participate in care of this very nice gentleman. RAJNI UMANZOR M.D. DR: SOPHIE/anais JOB#: [id number] / [id number] JODY
[2019-10-09] MEDS ORDERED: ONDANSETRON PF 4 MG/2 ML VIAL. IVP PRN (13:30)
[2019-10-09] MEDS: AZITHROMYCIN 500 MG in IV NORMAL SALINE 250ML 250 ML IV SCH (13:36)
[2019-10-09] MEDS: guaiFENesin DM 200MG/20MG 10 ML SYRUP PO PRN ×2 (13:37→20:50)
[2019-10-09] MEDS: ACETAMINOPHEN 500 MG TABLET PO PRN ×2 (14:13→20:50)
[2019-10-09 15:19] VITALS: BP 158/89
[2019-10-09 15:44] LABS: C-REACTIVE PROTEIN 102.2 mg/L (0-3.3)
[2019-10-09] MEDS: PIPERACILLIN/TAZOBACTAM 3.375 GM in IV NORMAL SALINE 50ML 50 ML IV SCH ×2 (17:07→23:48)
[2019-10-09 19:45] VITALS: BP 143/75
[2019-10-09] MEDS: FAMOTIDINE 20 MG TABLET. PO SCH (20:11)
[2019-10-09] MEDS: ZOLPIDEM 5 MG TABLET. PO PRN (20:11)
[2019-10-09] MEDS: ENOXAPARIN 40 MG/0.4 ML SYRINGE. SQ SCH (20:11)
[2019-10-09 23:00] VITALS: BP 128/74
[2019-10-10] VITALS (10 sets, daily range): BP systolic 132–158; BP diastolic 60–88
[2019-10-10] MEDS: guaiFENesin DM 200MG/20MG 10 ML SYRUP PO PRN ×2 (03:33→10:22)
[2019-10-10] MEDS: BENZOCAINE/MENTHOL LOZENGE. PO PRN ×2 (03:33→08:04)
[2019-10-10] MEDS: ACETAMINOPHEN 500 MG TABLET PO PRN ×2 (03:33→15:19)
[2019-10-10 05:22] LABS: PROTHROMBIN TIME PATIENT 15.2 SEC (11.7-14.0)
[2019-10-10 05:24] LABS: BASO % 0 % (0-3); EOS % 0 % (0-3); HEMATOCRIT 38.4 % (39.0-53.0); HEMOGLOBIN 13.8 g/dL (13.0-17.5); LYMPH # 0.6 x10^3/uL (1.0-4.8); LYMPH % 12 % (24-48); MEAN CORPUSCULAR HEMOGLOBIN 32 pg (25-35); MEAN CORPUSCULAR HGB CONC 36 g/dL (31-37); MEAN CORPUSCULAR VOLUME 89 fL (79-100); MONO # 0.1 x10^3/uL (0.0-1.1); MONO % 3 % (0-9); NEUT # 4.1 x10^3/uL (1.8-7.7); NEUT % 85 % (31-73); PLATELET COUNT 211 x10^3/uL (140-400); RED BLOOD COUNT 4.29 x10^6/uL (4.30-5.70); RED CELL DISTRIBUTION WIDTH 13.2 % (11.5-14.5); WHITE BLOOD COUNT 4.9 x10^3/uL (4.0-11.0)
[2019-10-10 05:45] LABS: ALBUMIN/GLOBULIN RATIO 0.8 (1.0-1.7); CALCIUM 8.3 mg/dL (8.5-10.1); CREATININE 1.1 mg/dL (0.7-1.3); GFR 69.8; POTASSIUM 3.3 mmol/L (3.5-5.1); TOTAL BILIRUBIN 0.5 mg/dL (0.2-1.0); TOTAL PROTEIN 6.9 g/dL (6.4-8.2)
[2019-10-10] MEDS: PIPERACILLIN/TAZOBACTAM 3.375 GM in IV NORMAL SALINE 50ML 50 ML IV SCH ×3 (05:54→18:32)
--- NOTE | 2019-10-10 07:20 | PDOC ---
Infectious Disease Note Vital Sign Vital Signs Vital Signs Date Time Temp Pulse Resp B/P (MAP) Pulse Ox O2 Delivery O2 Flow Rate FiO2 10/10/19 03:30 101.8 104 18 132/80 (97) 92 Nasal Cannula 2.5 101.8 Labs Lab Laboratory Tests Test 10/09/19 07:57 10/10/19 04:40 White Blood Count 3.5 x10^3/uL (4.0-11.0) 4.9 x10^3/uL (4.0-11.0) Red Blood Count 4.35 x10^6/uL (4.30-5.70) 4.29 x10^6/uL (4.30-5.70) Hemoglobin 13.8 g/dL (13.0-17.5) 13.8 g/dL (13.0-17.5) Hematocrit 38.7 % (39.0-53.0) 38.4 % (39.0-53.0) Mean Corpuscular Volume 89 fL (79-100) 89 fL (79-100) Mean Corpuscular Hemoglobin 32 pg (25-35) 32 pg (25-35) Mean Corpuscular Hemoglobin Concent 36 g/dL (31-37) 36 g/dL (31-37) Red Cell Distribution Width 12.8 % (11.5-14.5) 13.2 % (11.5-14.5) Platelet Count 175 x10^3/uL (140-400) 211 x10^3/uL (140-400) Neutrophils (%) (Auto) 82 % (31-73) 85 % (31-73) Lymphocytes (%) (Auto) 15 % (24-48) 12 % (24-48) Monocytes (%) (Auto) 3 % (0-9) 3 % (0-9) Eosinophils (%) (Auto) 0 % (0-3) 0 % (0-3) Basophils (%) (Auto) 0 % (0-3) 0 % (0-3) Neutrophils # (Auto) 2.9 x10^3/uL (1.8-7.7) 4.1 x10^3/uL (1.8-7.7) Lymphocytes # (Auto) 0.5 x10^3/uL (1.0-4.8) 0.6 x10^3/uL (1.0-4.8) Monocytes # (Auto) 0.1 x10^3/uL (0.0-1.1) 0.1 x10^3/uL (0.0-1.1) Eosinophils # (Auto) 0.0 x10^3/uL (0.0-0.7) 0.0 x10^3/uL (0.0-0.7) Basophils # (Auto) 0.0 x10^3/uL (0.0-0.2) 0.0 x10^3/uL (0.0-0.2) Prothrombin Time 13.9 SEC (11.7-14.0) 15.2 SEC (11.7-14.0) Prothromb Time International Ratio 1.1 (0.8-1.1) 1.2 (0.8-1.1) Activated Partial Thromboplast Time 41 SEC (24-38) 44 SEC (24-38) Sodium Level 134 mmol/L (136-145) 133 mmol/L (136-145) Potassium Level 3.5 mmol/L (3.5-5.1) 3.3 mmol/L (3.5-5.1) Chloride Level 95 mmol/L (98-107) 97 mmol/L (98-107) Carbon Dioxide Level 25 mmol/L (21-32) 24 mmol/L (21-32) Anion Gap 14 (6-14) 12 (6-14) Blood Urea Nitrogen 12 mg/dL (8-26) 12 mg/dL (8-26) Creatinine 0.8 mg/dL (0.7-1.3) 1.1 mg/dL (0.7-1.3) Estimated GFR (Cockcroft-Gault) 100.7 69.8 BUN/Creatinine Ratio 15 (6-20) 11 (6-20) Glucose Level 133 mg/dL (70-99) 129 mg/dL (70-99) Lactic Acid Level 0.8 mmol/L (0.4-2.0) Calcium Level 8.6 mg/dL (8.5-10.1) 8.3 mg/dL (8.5-10.1) Ferritin 901 ng/mL (26-388) Total Bilirubin 0.5 mg/dL (0.2-1.0) 0.5 mg/dL (0.2-1.0) Aspartate Amino Transf (AST/SGOT) 75 U/L (15-37) 79 U/L (15-37) Alanine Aminotransferase (ALT/SGPT) 79 U/L (16-63) 74 U/L (16-63) Alkaline Phosphatase 88 U/L (46-116) 91 U/L (46-116) Lactate Dehydrogenase 436 U/L (85-227) Troponin I Quantitative < 0.017 ng/mL (0.000-0.055) C-Reactive Protein, Quantitative 102.2 mg/L (0-3.3) Total Protein 6.5 g/dL (6.4-8.2) 6.9 g/dL (6.4-8.2) Albumin 3.3 g/dL (3.4-5.0) 3.0 g/dL (3.4-5.0) Albumin/Globulin Ratio 1.0 (1.0-1.7) 0.8 (1.0-1.7) Procalcitonin 0.10 ng/mL (0.00-0.10) Fibrinogen 647 mg/dL (200-440) D-Dimer (Cris) ug/mlFEU (0.00-0.50) Objective Assessment COVID + on 6/6 Fever Acute hypoxic resp failure on 2/5 liter at 92% Abnormal CXR Plan Plan of Care Cont Zosyn/Azithromycin Add Zyvox Begin Remdesivir F/u labs -LDH/CRP/Troponin in am CMP/CBC and cults Would benefit from plasma also D/w pharmacy D/w nursing Thank you # [id number] JUANJOSE MENDOZA MD Oct 10, 2019 07:20
[2019-10-10] MEDS ORDERED: PANTOPRAZOLE 40 MG TABLET.DR. PO SCH (07:30)
[2019-10-10] MEDS: LINEZOLID 600 MG TABLET PO SCH ×2 (08:04→19:38)
[2019-10-10] MEDS: FAMOTIDINE 20 MG TABLET. PO SCH ×2 (08:04→19:38)
[2019-10-10] MEDS: ZINC SULFATE 220 MG CAPSULE. PO SCH (08:04)
[2019-10-10] MEDS: ENOXAPARIN 40 MG/0.4 ML SYRINGE. SQ SCH ×2 (08:04→19:38)
[2019-10-10 08:43] LABS: C-REACTIVE PROTEIN 172.1 mg/L (0-3.3)
[2019-10-10] MEDS ORDERED: NON FORMULARY ITEM 1 EA in IV NORMAL SALINE 250ML 250 ML IV ONE (09:00)
--- NOTE | 2019-10-10 09:11 | CONS ---
DATE OF CONSULTATION: 10/10/2019 PATIENT'S ROOM: 675. REQUESTING PHYSICIAN: Dr. North. REASON FOR CONSULTATION: COVID defervescence. HISTORY OF PRESENT ILLNESS: The patient is a pleasant 54-year-old gentleman who his had tested positive for COVID previously in last week on 10/02/2019, he tested positive as well. He had been previously admitted with cough and shortness of air, but improved and was discharged home; however, on the evening of the he had fevers, chills, headaches and worsening cough, also had developed more shortness of air. He presented to the Emergency Room, was found to have a white blood cell count of 3.5, AST of 75, and ALT of 79. His CRP was 102.2 and his LDH was 436. He obtained a chest x-ray, which showed evidence of worsening lung aeration and more conspicuous bilateral reticulonodular densities. He was placed on azithromycin and Zosyn. This morning, he feels comfortable. He states that his sense of taste and smell have improved, but he is still having little loose stools at times. Denies any rashes or joint aches, but no gross sore throat and has a dry cough. PAST MEDICAL HISTORY: Essentially negative. PAST SURGICAL HISTORY: Denies. REVIEW OF SYSTEMS: Otherwise negative except for mentioned above. SOCIAL HISTORY: No tobacco. He is . Works for [employer]. He has no pets at home. FAMILY HISTORY: Positive for hypertension. CURRENT MEDICATIONS: Include azithromycin, Zosyn, Pepcid, Lovenox, Protonix. PHYSICAL EXAMINATION: VITAL SIGNS: Temperature currently is 101.8, pulse 104, respirations 18, blood pressure 132/80, satting 92% on 2.5 liters. CONSTITUTIONAL: He is a very pleasant gentleman. He is cooperative. He is in no acute distress. HEENT: Pupils are equal and reactive. He has normal conjunctivae. Oral cavity, pharynx is clear. NECK: Supple. Good range of motion. LUNGS: Has some mild crackles at the base. HEART: S1, S2. ABDOMEN: Soft, nontender, nondistended, positive bowel sounds. EXTREMITIES: Without clubbing or cyanosis. No gross edema. SKIN: Warm to touch without signs of rash. NEUROLOGIC: Nonfocal and pleasant. PSYCHIATRIC: Affect is appropriate. LABORATORY AND DIAGNOSTIC DATA: Laboratory values: White count was 3.5 on arrival, today is 4.9; hemoglobin 13.8, platelets of 211 with 85% neutrophils, glucose 129, AST 79, ALT 74, LDH 436, C-reactive protein of 102.2, procalcitonin was 1. Throat culture from the 6th is negative. IMPRESSION: 1. COVID positive on 10/02/2019. 2. Fever. 3. Acute hypoxic respiratory failure, on 2.5 liters at 92%. 4. Abnormal chest x-ray. RECOMMENDATIONS: Continue Zosyn and azithromycin, but given the hospital exposure, we will add Zyvox, would begin remdesivir. Follow up labs in the morning including LDH, CRP, troponin as well as CMP and CBC as well as cultures. May benefit from plasma also. This was discussed with pharmacy, discussed with nursing. Thank you for allowing me to participate in the patient's care. If you have any questions, please do not hesitate to contact me. JUANJOSE MENDOZA MD DR: LEMUEL/anais JOB#: [id number] / [id number]
--- NOTE | 2019-10-10 10:03 | NUR ---
Patient's O2 saturation remained at 87-88% despite receiving oxygen at 2 liters per minute, flow rate increased to 4 liters per minute maintaining sats at 92-94% Remdesivir given per IV, no untoward reactions noted.
--- NOTE | 2019-10-10 11:54 | PDOC ---
[employer] PROGRESS NOTE Chief Complaint Chief Complaint Recurrent and worsening Covid-19 syndrome Respiratory failure Acute pneumonia Transaminase-itis leukopenia Diarrhea Sepsis Headache History of Present Illness History of Present Illness 10/10/2019 Patient seen and examined He appears quite ill He is short of breath and hypoxic at 87% despite being on O2 per nasal cannula I called the pharmacy to order some convalescent plasma but they explained only certain doctors are allowed to order it I called Dr. Enciso, he was not sure how to get it either (but he did order the Remdesivir and we certainly appreciate his input and help) I notified Dr. Salguero of the situation, and he is going to call in order the convalescent plasma for us. Thank you Chart reviewed Discussed with RN I reviewed the chest x-ray myself it is showing worsening congestion bilaterally as well as borderline cardiomegaly I went ahead and consulted cardiology also Vitals/I&O Vitals/I&O: Vital Signs Date Time Temp Pulse Resp B/P (MAP) Pulse Ox O2 Delivery O2 Flow Rate FiO2 10/10/19 10:38 98.6 88 22 134/80 (98) 92 Nasal Cannula 98.6 10/10/19 08:00 4.0 I & O 10/09/19 10/09/19 10/10/19 15:00 23:00 07:00 Intake Total 50 ml 300 ml 900 ml Output Total 250 ml 101 ml Balance 50 ml 50 ml 799 ml Physical Exam General: moderate distress, Other (Looks a little scared and short of breath perhaps slightly confused even) Heart: Other (Tachycardic with S1-S2 and subtle S3 gallop) Lungs: Crackles, Other Abdomen: Normal bowel sounds, Soft, No tenderness, No hepatosplenomegaly, No masses Extremities: No clubbing, No cyanosis, No edema, Normal pulses, No tenderness/swelling Skin: No rashes, No breakdown, No significant lesion Labs Labs: Laboratory Tests Test 10/10/19 04:40 White Blood Count 4.9 x10^3/uL (4.0-11.0) Red Blood Count 4.29 x10^6/uL (4.30-5.70) Hemoglobin 13.8 g/dL (13.0-17.5) Hematocrit 38.4 % (39.0-53.0) Mean Corpuscular Volume 89 fL (79-100) Mean Corpuscular Hemoglobin 32 pg (25-35) Mean Corpuscular Hemoglobin Concent 36 g/dL (31-37) Red Cell Distribution Width 13.2 % (11.5-14.5) Platelet Count 211 x10^3/uL (140-400) Neutrophils (%) (Auto) 85 % (31-73) Lymphocytes (%) (Auto) 12 % (24-48) Monocytes (%) (Auto) 3 % (0-9) Eosinophils (%) (Auto) 0 % (0-3) Basophils (%) (Auto) 0 % (0-3) Neutrophils # (Auto) 4.1 x10^3/uL (1.8-7.7) Lymphocytes # (Auto) 0.6 x10^3/uL (1.0-4.8) Monocytes # (Auto) 0.1 x10^3/uL (0.0-1.1) Eosinophils # (Auto) 0.0 x10^3/uL (0.0-0.7) Basophils # (Auto) 0.0 x10^3/uL (0.0-0.2) Prothrombin Time 15.2 SEC (11.7-14.0) Prothromb Time International Ratio 1.2 (0.8-1.1) Activated Partial Thromboplast Time 44 SEC (24-38) Fibrinogen 647 mg/dL (200-440) D-Dimer (Cris) ug/mlFEU (0.00-0.50) Sodium Level 133 mmol/L (136-145) Potassium Level 3.3 mmol/L (3.5-5.1) Chloride Level 97 mmol/L (98-107) Carbon Dioxide Level 24 mmol/L (21-32) Anion Gap 12 (6-14) Blood Urea Nitrogen 12 mg/dL (8-26) Creatinine 1.1 mg/dL (0.7-1.3) Estimated GFR (Cockcroft-Gault) 69.8 BUN/Creatinine Ratio 11 (6-20) Glucose Level 129 mg/dL (70-99) Calcium Level 8.3 mg/dL (8.5-10.1) Total Bilirubin 0.5 mg/dL (0.2-1.0) Aspartate Amino Transf (AST/SGOT) 79 U/L (15-37) Alanine Aminotransferase (ALT/SGPT) 74 U/L (16-63) Alkaline Phosphatase 91 U/L (46-116) Lactate Dehydrogenase 521 U/L (85-227) Troponin I Quantitative < 0.017 ng/mL (0.000-0.055) C-Reactive Protein, Quantitative 172.1 mg/L (0-3.3) Total Protein 6.9 g/dL (6.4-8.2) Albumin 3.0 g/dL (3.4-5.0) Albumin/Globulin Ratio 0.8 (1.0-1.7) Review of Systems Review of Systems: Complains of severe shortness of breath and weakness Assessment and Plan Assessmemt and Plan Problems Medical Problems: (1) COVID-19 virus infection Status: Acute (2) Pneumonia Status: Acu COVID-19 syndrome Fulminant respiratory failure Hypoxia Pneumonia Transaminase-itis Hyponatremia Diarrhea Sepsis Headache Plan We have arranged for him to receive some convalescent plasma please see above IV Remdesivir Zinc Zosyn Zyvox Supplemental O2 Duo nebs DVT prophylaxis Home meds Full code Cardiac monitoring Trend labs We have consulted infectious disease pulmonary cardiology and I am going to consult GI as well Total time 37 minutes Comment Review of Relevant I have reviewed the following items alyssa (where applicable) has been applied. Medications: Current Medications Medications (Trade) Dose Ordered Sig/Melissa Route PRN Reason Start Time Stop Time Status Last Admin Dose Admin Enoxaparin Sodium (Lovenox 40mg Syringe) 40 mg BID SQ 10/09/19 21:00 10/10/19 08:04 Famotidine (Pepcid) 20 mg BID PO 10/09/19 21:00 10/10/19 08:04 Azithromycin 500 mg/Sodium Chloride 250 ml @ 250 mls/hr Q24H IV 10/09/19 14:00 10/09/19 13:36 Piperacillin Sod/ Tazobactam Sod 3.375 gm/Sodium Chloride 50 ml @ 100 mls/hr Q6HRS IV 10/09/19 18:00 10/10/19 05:54 Zinc Sulfate (Orazinc) 220 mg DAILY PO 10/10/19 09:00 10/10/19 08:04 Guaifenesin (Robitussin Dm) 10 ml PRN Q6HRS PRN PO COUGH 10/09/19 13:30 10/10/19 10:22 Acetaminophen (Tylenol) 1,000 mg PRN Q6HRS PRN PO MILD PAIN / TEMP > 100.3'F 10/09/19 13:45 10/10/19 03:33 Zolpidem Tartrate (Ambien) 5 mg PRN QHS PRN PO INSOMNIA 10/09/19 20:00 10/09/19 20:11 Throat Lozenges (Cepacol Sore Throat Lozenge) 1 chris PRN Q1HR PRN PO SORE THROAT 10/10/19 03:30 10/10/19 08:04 Non-Formulary Medication 1 ea/ Sodium Chloride 250 ml @ 500 mls/hr 1X ONCE IV 10/10/19 09:00 10/10/19 09:29 DC 10/10/19 08:33 Linezolid (Zyvox) 600 mg BID PO 10/10/19 09:00 10/10/19 08:04 Justicifation of Admission Dx: Justifications for Admission: Justification of Admission Dx: Yes Respiratory Failure: Severe Resp Distress FOUZIA LAMAR III DO Oct 10, 2019 11:54
--- NOTE | 2019-10-10 12:17 | PDOC ---
PULMONARY PROGRESS NOTES Subjective on 02 4 lpm feels slightly better, has sob cough, slightly better. Vitals Vital Signs Date Time Temp Pulse Resp B/P (MAP) Pulse Ox O2 Delivery O2 Flow Rate FiO2 10/10/19 10:38 98.6 88 22 134/80 (98) 92 Nasal Cannula 98.6 10/10/19 08:00 4.0 Comments on appears comfortable no resp distress less cough no paradoxical abd motion no audible wheezing alert and orientated no rash no edema Labs Laboratory Tests Test 10/09/19 07:57 10/10/19 04:40 White Blood Count 3.5 x10^3/uL (4.0-11.0) 4.9 x10^3/uL (4.0-11.0) Red Blood Count 4.35 x10^6/uL (4.30-5.70) 4.29 x10^6/uL (4.30-5.70) Hemoglobin 13.8 g/dL (13.0-17.5) 13.8 g/dL (13.0-17.5) Hematocrit 38.7 % (39.0-53.0) 38.4 % (39.0-53.0) Mean Corpuscular Volume 89 fL (79-100) 89 fL (79-100) Mean Corpuscular Hemoglobin 32 pg (25-35) 32 pg (25-35) Mean Corpuscular Hemoglobin Concent 36 g/dL (31-37) 36 g/dL (31-37) Red Cell Distribution Width 12.8 % (11.5-14.5) 13.2 % (11.5-14.5) Platelet Count 175 x10^3/uL (140-400) 211 x10^3/uL (140-400) Neutrophils (%) (Auto) 82 % (31-73) 85 % (31-73) Lymphocytes (%) (Auto) 15 % (24-48) 12 % (24-48) Monocytes (%) (Auto) 3 % (0-9) 3 % (0-9) Eosinophils (%) (Auto) 0 % (0-3) 0 % (0-3) Basophils (%) (Auto) 0 % (0-3) 0 % (0-3) Neutrophils # (Auto) 2.9 x10^3/uL (1.8-7.7) 4.1 x10^3/uL (1.8-7.7) Lymphocytes # (Auto) 0.5 x10^3/uL (1.0-4.8) 0.6 x10^3/uL (1.0-4.8) Monocytes # (Auto) 0.1 x10^3/uL (0.0-1.1) 0.1 x10^3/uL (0.0-1.1) Eosinophils # (Auto) 0.0 x10^3/uL (0.0-0.7) 0.0 x10^3/uL (0.0-0.7) Basophils # (Auto) 0.0 x10^3/uL (0.0-0.2) 0.0 x10^3/uL (0.0-0.2) Prothrombin Time 13.9 SEC (11.7-14.0) 15.2 SEC (11.7-14.0) Prothromb Time International Ratio 1.1 (0.8-1.1) 1.2 (0.8-1.1) Activated Partial Thromboplast Time 41 SEC (24-38) 44 SEC (24-38) Sodium Level 134 mmol/L (136-145) 133 mmol/L (136-145) Potassium Level 3.5 mmol/L (3.5-5.1) 3.3 mmol/L (3.5-5.1) Chloride Level 95 mmol/L (98-107) 97 mmol/L (98-107) Carbon Dioxide Level 25 mmol/L (21-32) 24 mmol/L (21-32) Anion Gap 14 (6-14) 12 (6-14) Blood Urea Nitrogen 12 mg/dL (8-26) 12 mg/dL (8-26) Creatinine 0.8 mg/dL (0.7-1.3) 1.1 mg/dL (0.7-1.3) Estimated GFR (Cockcroft-Gault) 100.7 69.8 BUN/Creatinine Ratio 15 (6-20) 11 (6-20) Glucose Level 133 mg/dL (70-99) 129 mg/dL (70-99) Lactic Acid Level 0.8 mmol/L (0.4-2.0) Calcium Level 8.6 mg/dL (8.5-10.1) 8.3 mg/dL (8.5-10.1) Ferritin 901 ng/mL (26-388) Total Bilirubin 0.5 mg/dL (0.2-1.0) 0.5 mg/dL (0.2-1.0) Aspartate Amino Transf (AST/SGOT) 75 U/L (15-37) 79 U/L (15-37) Alanine Aminotransferase (ALT/SGPT) 79 U/L (16-63) 74 U/L (16-63) Alkaline Phosphatase 88 U/L (46-116) 91 U/L (46-116) Lactate Dehydrogenase 436 U/L (85-227) 521 U/L (85-227) Troponin I Quantitative < 0.017 ng/mL (0.000-0.055) < 0.017 ng/mL (0.000-0.055) C-Reactive Protein, Quantitative 102.2 mg/L (0-3.3) 172.1 mg/L (0-3.3) Total Protein 6.5 g/dL (6.4-8.2) 6.9 g/dL (6.4-8.2) Albumin 3.3 g/dL (3.4-5.0) 3.0 g/dL (3.4-5.0) Albumin/Globulin Ratio 1.0 (1.0-1.7) 0.8 (1.0-1.7) Procalcitonin 0.10 ng/mL (0.00-0.10) Fibrinogen 647 mg/dL (200-440) D-Dimer (Cris) ug/mlFEU (0.00-0.50) Laboratory Tests Test 10/10/19 04:40 White Blood Count 4.9 x10^3/uL (4.0-11.0) Red Blood Count 4.29 x10^6/uL (4.30-5.70) Hemoglobin 13.8 g/dL (13.0-17.5) Hematocrit 38.4 % (39.0-53.0) Mean Corpuscular Volume 89 fL (79-100) Mean Corpuscular Hemoglobin 32 pg (25-35) Mean Corpuscular Hemoglobin Concent 36 g/dL (31-37) Red Cell Distribution Width 13.2 % (11.5-14.5) Platelet Count 211 x10^3/uL (140-400) Neutrophils (%) (Auto) 85 % (31-73) Lymphocytes (%) (Auto) 12 % (24-48) Monocytes (%) (Auto) 3 % (0-9) Eosinophils (%) (Auto) 0 % (0-3) Basophils (%) (Auto) 0 % (0-3) Neutrophils # (Auto) 4.1 x10^3/uL (1.8-7.7) Lymphocytes # (Auto) 0.6 x10^3/uL (1.0-4.8) Monocytes # (Auto) 0.1 x10^3/uL (0.0-1.1) Eosinophils # (Auto) 0.0 x10^3/uL (0.0-0.7) Basophils # (Auto) 0.0 x10^3/uL (0.0-0.2) Prothrombin Time 15.2 SEC (11.7-14.0) Prothromb Time International Ratio 1.2 (0.8-1.1) Activated Partial Thromboplast Time 44 SEC (24-38) Fibrinogen 647 mg/dL (200-440) D-Dimer (Cris) ug/mlFEU (0.00-0.50) Sodium Level 133 mmol/L (136-145) Potassium Level 3.3 mmol/L (3.5-5.1) Chloride Level 97 mmol/L (98-107) Carbon Dioxide Level 24 mmol/L (21-32) Anion Gap 12 (6-14) Blood Urea Nitrogen 12 mg/dL (8-26) Creatinine 1.1 mg/dL (0.7-1.3) Estimated GFR (Cockcroft-Gault) 69.8 BUN/Creatinine Ratio 11 (6-20) Glucose Level 129 mg/dL (70-99) Calcium Level 8.3 mg/dL (8.5-10.1) Total Bilirubin 0.5 mg/dL (0.2-1.0) Aspartate Amino Transf (AST/SGOT) 79 U/L (15-37) Alanine Aminotransferase (ALT/SGPT) 74 U/L (16-63) Alkaline Phosphatase 91 U/L (46-116) Lactate Dehydrogenase 521 U/L (85-227) Troponin I Quantitative < 0.017 ng/mL (0.000-0.055) C-Reactive Protein, Quantitative 172.1 mg/L (0-3.3) Total Protein 6.9 g/dL (6.4-8.2) Albumin 3.0 g/dL (3.4-5.0) Albumin/Globulin Ratio 0.8 (1.0-1.7) Medications Active Scripts Medications Dose Route/Sig Max Daily Dose Days Date Category Proair Hfa Inhaler (Albuterol Sulfate) 8.5 Gm Hfa.aer.ad 2 Puff IH PRN Q4-6HRS PRN 21 10/06/19 Rx Mucinex Dm Er 600-30 Mg Tablet (Guaifenesin/Dextromethorphan) 1 Each Tab.er.12h 1 Tab PO PRN BID PRN 14 10/06/19 Rx Tylenol With Codeine #3 Tablet (Acetaminophen/Codeine Phosphate) 1 Each Tablet 1 Tab PO PRN Q8HRS PRN 10/06/19 Rx Zithromax (Azithromycin) 500 Mg Tablet 1 Tab PO DAILY 10/02/19 Rx Comments cxr reviewed Impression . IMPRESSION: 1. Abnormal chest x-ray in a COVID-19 positive patient secondary to COVID-19 pneumonia, cannot rule out bacterial pneumonia. 2. Abnormal chest x-ray. 3. Mildly elevated AST and ALT, suspect secondary to COVID-19. 4. Leukopenia. 5. Mild hyponatremia. Plan . PLAN AND RECOMMENDATIONS: 1. Titrate FiO2 to keep O2 saturation more than 94%. 2. Agree with antibiotic Zosyn and azithromycin. zyvox added 3. aggressive DVT prophylaxis. 4. Lovenox 40 mg subcutaneous b.i.d. 5. ID consulted. agreed w remdesivir. 6. Monitor respiratory status very closely. 7. Protonix for stress ulcer prophylaxis. 8. Discussed with RAJNI Lopez MD Oct 10, 2019 12:17
[2019-10-10] MEDS ORDERED: POTASSIUM CHLORIDE 20 MEQ TABLET.ER. PO ONE (12:45)
[2019-10-10] MEDS: AZITHROMYCIN 500 MG in IV NORMAL SALINE 250ML 250 ML IV SCH (13:19)
--- NOTE | 2019-10-10 13:51 | EKG ---
[facility] [address] [place] [address] Test Date: 2019-10-09 Test Time: 07:32:40 Pat Name: TANYA LEDEZMA Department: Room: [facility] Gender: M [employer]: : 1965 Requested By: ANNA MARIE CORNEJO Order Number: [id number] Reading MD: Erick Stuart MD Measurements Intervals [place] Rate: 80 P: 126 [place]: 166 QRS: -179 QRSD: 90 T: 179 QT: 380 QTc: 442 Interpretive Statements SINUS RHYTHM LIMB LEAD MISPLACEMENT Electronically Signed On 10-11-2019 9:22:24 CDT by Erick Stuart MD
--- NOTE | 2019-10-10 15:01 | PDOC2 ---
CONSULT Date of Consult Date of Consult DATE: 10/10/19 TIME: 14:55 Reason for Consult Reason for Consult: Abnormal liver transaminases, diarrhea, COVID positive patient History of Present Illness Reason for Visit: This is a 54-year-old gentleman who is been otherwise healthy until the onset of diarrhea and bronchitis symptoms about week ago. He was found to be COVID positive last week. He describes no history of diarrhea or bowel complaints before. He was also noticed to have slight elevation in his transaminases on lab testing but denies any history of liver disease, alcohol use, viral hepatitis, cytotoxic drug use etc. He has been started on protocols including azithromycin and is apparently receiving plasma later today. He denies any hematemesis, melena, hematochezia. Denies any chronic dyspepsia or abdominal pain symptoms prior to the onset of his present complaints. His main symptom is cough, shortness of breath and decreased taste. Past Medical History Cardiovascular: No pertinent hx Infectious disease: Other (COVID 19+) Past Surgical History Past Surgical History: No pertinent history Family History Family History: Hypertension Social History No ALCOHOL: none Drugs: None Current Problem List Problem List Problems Medical Problems: (1) COVID-19 virus infection Status: Acute (2) Pneumonia Status: Acute Current Medications Current Medications Current Medications Acetaminophen (Tylenol) 650 mg 1X ONCE PO ; Start 10/09/19 at 08:15; Stop 10/09/19 at 08:16; Status Cancel Acetaminophen (Tylenol) 1,000 mg 1X ONCE PO ; Start 10/09/19 at 08:15; Stop 10/09/19 at 08:16; Status Cancel Acetaminophen (Tylenol) 650 mg 1X ONCE PO Last administered on 10/09/19at 08:07; Start 10/09/19 at 08:15; Stop 10/09/19 at 08:16; Status DC Piperacillin Sod/ Tazobactam Sod 3.375 gm/Sodium Chloride 50 ml @ 100 mls/hr 1X ONCE IV Last administered on 10/09/19at 09:56; Start 10/09/19 at 09:30; Stop 10/09/19 at 09:59; Status DC Enoxaparin Sodium (Lovenox 40mg Syringe) 40 mg BID SQ Last administered on 10/10/19at 08:04; Start 10/09/19 at 21:00 Pantoprazole Sodium (Protonix) 40 mg DAILYAC PO ; Start 10/10/19 at 07:30; Stop 10/09/19 at 12:32; Status DC Famotidine (Pepcid) 20 mg BID PO Last administered on 10/10/19 08:04; Start 10/09/19 at 21:00 Azithromycin 500 mg/Sodium Chloride 250 ml @ 250 mls/hr Q24H IV Last administered on 10/10/19 13:19; Start 10/09/19 at 14:00 Piperacillin Sod/ Tazobactam Sod 3.375 gm/Sodium Chloride 50 ml @ 100 mls/hr Q6HRS IV Last administered on 10/10/19 11:54; Start 10/09/19 at 18:00 Zinc Sulfate (Orazinc) 220 mg DAILY PO Last administered on 10/10/19 08:04; Start 10/10/19 at 09:00 Guaifenesin (Robitussin Dm) 10 ml PRN Q6HRS PRN PO COUGH Last administered on 10/10/19 10:22; Start 10/09/19 at 13:30 Ondansetron HCl (Zofran) 4 mg PRN Q4HRS PRN IVP NAUSEA/VOMITING; Start 10/09/19 at 13:30 Acetaminophen (Tylenol) 1,000 mg PRN Q6HRS PRN PO MILD PAIN / TEMP > 100.3'F Last administered on 10/10/19 03:33; Start 10/09/19 at 13:45 Zolpidem Tartrate (Ambien) 5 mg PRN QHS PRN PO INSOMNIA Last administered on at 20:11; Start 10/09/19 at 20:00 Throat Lozenges (Cepacol Sore Throat Lozenge) 1 chris PRN Q1HR PRN PO SORE THROAT Last administered on 10/10/19 08:04; Start 10/10/19 at 03:30 Non-Formulary Medication 1 ea/ Sodium Chloride 250 ml @ 500 mls/hr 1X ONCE IV Last administered on 10/10/19 08:33; Start 10/10/19 at 09:00; Stop 10/10/19 at 09:29; Status DC Linezolid (Zyvox) 600 mg BID PO Last administered on 6/14/20at 08:04; Start 10/10/19 at 09:00 Non-Formulary Medication 1 ea/ Sodium Chloride 250 ml @ 500 mls/hr Q24H IV ; Start 10/11/19 at 09:00; Stop 10/14/19 at 09:29 Potassium Chloride (Klor-Con) 40 meq 1X ONCE PO Last administered on 10/10/19at 12:11; Start 10/10/19 at 12:45; Stop 10/10/19 at 12:46; Status DC Active Scripts Active Proair Hfa Inhaler (Albuterol Sulfate) 8.5 Gm Hfa.aer.ad 2 Puff IH PRN Q4-6HRS PRN 21 Days Mucinex Dm Er 600-30 Mg Tablet (Guaifenesin/Dextromethorphan) 1 Each Tab.er.12h 1 Tab PO PRN BID PRN 14 Days Tylenol With Codeine #3 Tablet (Acetaminophen/Codeine Phosphate) 1 Each Tablet 1 Tab PO PRN Q8HRS PRN Zithromax (Azithromycin) 500 Mg Tablet 1 Tab PO DAILY Allergies Allergies: Coded Allergies: No Known Drug Allergies (Unverified , 10/02/19) PT REPORTS NKDA Vitals VITALS Vital Signs Date Time Temp Pulse Resp B/P (MAP) Pulse Ox O2 Delivery O2 Flow Rate FiO2 10/10/19 10:38 98.6 88 22 134/80 (98) 92 Nasal Cannula 98.6 10/10/19 08:00 4.0 Labs Labs Laboratory Tests Test 10/09/19 07:57 10/10/19 04:40 White Blood Count 3.5 x10^3/uL (4.0-11.0) 4.9 x10^3/uL (4.0-11.0) Red Blood Count 4.35 x10^6/uL (4.30-5.70) 4.29 x10^6/uL (4.30-5.70) Hemoglobin 13.8 g/dL (13.0-17.5) 13.8 g/dL (13.0-17.5) Hematocrit 38.7 % (39.0-53.0) 38.4 % (39.0-53.0) Mean Corpuscular Volume 89 fL (79-100) 89 fL (79-100) Mean Corpuscular Hemoglobin 32 pg (25-35) 32 pg (25-35) Mean Corpuscular Hemoglobin Concent 36 g/dL (31-37) 36 g/dL (31-37) Red Cell Distribution Width 12.8 % (11.5-14.5) 13.2 % (11.5-14.5) Platelet Count 175 x10^3/uL (140-400) 211 x10^3/uL (140-400) Neutrophils (%) (Auto) 82 % (31-73) 85 % (31-73) Lymphocytes (%) (Auto) 15 % (24-48) 12 % (24-48) Monocytes (%) (Auto) 3 % (0-9) 3 % (0-9) Eosinophils (%) (Auto) 0 % (0-3) 0 % (0-3) Basophils (%) (Auto) 0 % (0-3) 0 % (0-3) Neutrophils # (Auto) 2.9 x10^3/uL (1.8-7.7) 4.1 x10^3/uL (1.8-7.7) Lymphocytes # (Auto) 0.5 x10^3/uL (1.0-4.8) 0.6 x10^3/uL (1.0-4.8) Monocytes # (Auto) 0.1 x10^3/uL (0.0-1.1) 0.1 x10^3/uL (0.0-1.1) Eosinophils # (Auto) 0.0 x10^3/uL (0.0-0.7) 0.0 x10^3/uL (0.0-0.7) Basophils # (Auto) 0.0 x10^3/uL (0.0-0.2) 0.0 x10^3/uL (0.0-0.2) Prothrombin Time 13.9 SEC (11.7-14.0) 15.2 SEC (11.7-14.0) Prothromb Time International Ratio 1.1 (0.8-1.1) 1.2 (0.8-1.1) Activated Partial Thromboplast Time 41 SEC (24-38) 44 SEC (24-38) Sodium Level 134 mmol/L (136-145) 133 mmol/L (136-145) Potassium Level 3.5 mmol/L (3.5-5.1) 3.3 mmol/L (3.5-5.1) Chloride Level 95 mmol/L (98-107) 97 mmol/L (98-107) Carbon Dioxide Level 25 mmol/L (21-32) 24 mmol/L (21-32) Anion Gap 14 (6-14) 12 (6-14) Blood Urea Nitrogen 12 mg/dL (8-26) 12 mg/dL (8-26) Creatinine 0.8 mg/dL (0.7-1.3) 1.1 mg/dL (0.7-1.3) Estimated GFR (Cockcroft-Gault) 100.7 69.8 BUN/Creatinine Ratio 15 (6-20) 11 (6-20) Glucose Level 133 mg/dL (70-99) 129 mg/dL (70-99) Lactic Acid Level 0.8 mmol/L (0.4-2.0) Calcium Level 8.6 mg/dL (8.5-10.1) 8.3 mg/dL (8.5-10.1) Ferritin 901 ng/mL (26-388) Total Bilirubin 0.5 mg/dL (0.2-1.0) 0.5 mg/dL (0.2-1.0) Aspartate Amino Transf (AST/SGOT) 75 U/L (15-37) 79 U/L (15-37) Alanine Aminotransferase (ALT/SGPT) 79 U/L (16-63) 74 U/L (16-63) Alkaline Phosphatase 88 U/L (46-116) 91 U/L (46-116) Lactate Dehydrogenase 436 U/L (85-227) 521 U/L (85-227) Troponin I Quantitative < 0.017 ng/mL (0.000-0.055) < 0.017 ng/mL (0.000-0.055) C-Reactive Protein, Quantitative 102.2 mg/L (0-3.3) 172.1 mg/L (0-3.3) Total Protein 6.5 g/dL (6.4-8.2) 6.9 g/dL (6.4-8.2) Albumin 3.3 g/dL (3.4-5.0) 3.0 g/dL (3.4-5.0) Albumin/Globulin Ratio 1.0 (1.0-1.7) 0.8 (1.0-1.7) Procalcitonin 0.10 ng/mL (0.00-0.10) Fibrinogen 647 mg/dL (200-440) D-Dimer (Cris) ug/mlFEU (0.00-0.50) Laboratory Tests Test 10/10/19 04:40 White Blood Count 4.9 x10^3/uL (4.0-11.0) Red Blood Count 4.29 x10^6/uL (4.30-5.70) Hemoglobin 13.8 g/dL (13.0-17.5) Hematocrit 38.4 % (39.0-53.0) Mean Corpuscular Volume 89 fL (79-100) Mean Corpuscular Hemoglobin 32 pg (25-35) Mean Corpuscular Hemoglobin Concent 36 g/dL (31-37) Red Cell Distribution Width 13.2 % (11.5-14.5) Platelet Count 211 x10^3/uL (140-400) Neutrophils (%) (Auto) 85 % (31-73) Lymphocytes (%) (Auto) 12 % (24-48) Monocytes (%) (Auto) 3 % (0-9) Eosinophils (%) (Auto) 0 % (0-3) Basophils (%) (Auto) 0 % (0-3) Neutrophils # (Auto) 4.1 x10^3/uL (1.8-7.7) Lymphocytes # (Auto) 0.6 x10^3/uL (1.0-4.8) Monocytes # (Auto) 0.1 x10^3/uL (0.0-1.1) Eosinophils # (Auto) 0.0 x10^3/uL (0.0-0.7) Basophils # (Auto) 0.0 x10^3/uL (0.0-0.2) Prothrombin Time 15.2 SEC (11.7-14.0) Prothromb Time International Ratio 1.2 (0.8-1.1) Activated Partial Thromboplast Time 44 SEC (24-38) Fibrinogen 647 mg/dL (200-440) D-Dimer (Cris) ug/mlFEU (0.00-0.50) Sodium Level 133 mmol/L (136-145) Potassium Level 3.3 mmol/L (3.5-5.1) Chloride Level 97 mmol/L (98-107) Carbon Dioxide Level 24 mmol/L (21-32) Anion Gap 12 (6-14) Blood Urea Nitrogen 12 mg/dL (8-26) Creatinine 1.1 mg/dL (0.7-1.3) Estimated GFR (Cockcroft-Gault) 69.8 BUN/Creatinine Ratio 11 (6-20) Glucose Level 129 mg/dL (70-99) Calcium Level 8.3 mg/dL (8.5-10.1) Total Bilirubin 0.5 mg/dL (0.2-1.0) Aspartate Amino Transf (AST/SGOT) 79 U/L (15-37) Alanine Aminotransferase (ALT/SGPT) 74 U/L (16-63) Alkaline Phosphatase 91 U/L (46-116) Lactate Dehydrogenase 521 U/L (85-227) Troponin I Quantitative < 0.017 ng/mL (0.000-0.055) C-Reactive Protein, Quantitative 172.1 mg/L (0-3.3) Total Protein 6.9 g/dL (6.4-8.2) Albumin 3.0 g/dL (3.4-5.0) Albumin/Globulin Ratio 0.8 (1.0-1.7) Assessment/Plan Assessment/Plan New onset elevation in transaminases. These are low-level elevations with normal bilirubin and alkaline phosphatase. He denies any prior history of liver disease and is not an alcohol drinker. Most likely these elevations are related to either the virus or more likely the recovery from the virus as has been suggested in a number of publications. The immune response may trigger some mild abnormalities in certain end organs including the liver, resulting in transient elevations in transaminases. Additionally some of the medications used for treatment or support may also have a mild hepatotoxic effect. Close monitoring is appropriate but would not recommend further testing for other causes of abnormal liver function studies until he is recovered from COVID. If the elevations remain elevated and further work-up may certainly be reasonable at that point. Diarrhea. New onset and at the same time as his other symptoms are likely directly related to the COVID virus. Symptomatic treatment is appropriate. If his diarrhea symptoms become more overwhelming, other cultures may be appropriate to rule out a superimposed second infection but is not recommended at this time Plan: Monitor the liver studies-hold off on further work-up for other causes of liver disease at this time Treat diarrhea if volume and symptoms are increasing. Otherwise continue to monitor ARASELI RASHEED MD Oct 10, 2019 15:01
--- NOTE | 2019-10-10 19:04 | NUR ---
Convalescent plasma transfused, no adverse reactions noted
--- NOTE | 2019-10-10 21:03 | NUR ---
Pt attempted to take a shower tonight however pt was informed that at this time may not be a good idea since pt still with complaints of being short of air. Pt tried the attempt and states unable to do it because pt became short of air within 5 min of have O2 off. Pt instructed of being able to take a bedbath if needed however pt refuses at this time. Pt encouraged on deep breathing and coughing. Pt verbalize understanding.
[2019-10-10] MEDS: ZOLPIDEM 5 MG TABLET. PO PRN (22:00)
[2019-10-11] VITALS (7 sets, daily range): BP systolic 121–166; BP diastolic 60–82
[2019-10-11] MEDS: ACETAMINOPHEN 500 MG TABLET PO PRN ×2 (00:11→19:06)
[2019-10-11] MEDS: PIPERACILLIN/TAZOBACTAM 3.375 GM in IV NORMAL SALINE 50ML 50 ML IV SCH ×5 (00:11→23:00)
--- NOTE | 2019-10-11 00:47 | NUR ---
Pt called out and states he think he made an medical error. This nurse entered room and pt started talking about the medication he received today and started rambling his words. After sitting down and relaxing pt started to state about him seeing 2 kids in the room. Pt instructed of hallucinating at this time and could be due to sleeping pill that he took. Pt verbalized understanding. Pt also instructed to rest and relax and to keep his O2 on. Pt continues to take off then his sats drop and he takes awhile to recover. Pt instructed on deep breathing. Pt verbalized understanding however will need reinforcement.
--- NOTE | 2019-10-11 03:33 | NUR ---
Pt called and asked for assistance, when this nurse entered the room pt was lying on the floor with pillows and a blanket. Questioned pt if he had fell and pt states no he laid down on the floor because his bed was wet. Pt was incontinent and had also urinated on the floor on the other side of the bed and took everything off. Pt instructed on leaving O2 on since pt with difficulty breathing. Pt verbalized understanding. O2 placed back on and linens changed. Pt assisted back in bed without difficulty pt instructed to call and not to lie down on the floor. Pt verbalized understanding. Questioned pt if anything was wrong and pt states he was ok just tired. Pt alert and oriented at the time. Will continue to monitor. Vitals wnl at this time. Pt instructed on slow deep breathing since difficulty with keeping O2 saturation elevated.
[2019-10-11 04:06] LABS: BASO % 0 % (0-3); EOS % 0 % (0-3); HEMATOCRIT 38.3 % (39.0-53.0); HEMOGLOBIN 13.3 g/dL (13.0-17.5); LYMPH # 0.8 x10^3/uL (1.0-4.8); LYMPH % 13 % (24-48); MEAN CORPUSCULAR HEMOGLOBIN 32 pg (25-35); MEAN CORPUSCULAR HGB CONC 35 g/dL (31-37); MEAN CORPUSCULAR VOLUME 91 fL (79-100); MONO # 0.2 x10^3/uL (0.0-1.1); MONO % 3 % (0-9); NEUT % 84 % (31-73); PLATELET COUNT 245 x10^3/uL (140-400); RED BLOOD COUNT 4.22 x10^6/uL (4.30-5.70); RED CELL DISTRIBUTION WIDTH 13.1 % (11.5-14.5)
[2019-10-11 04:36] LABS: ALBUMIN 2.7 g/dL (3.4-5.0); ALBUMIN/GLOBULIN RATIO 0.7 (1.0-1.7); CALCIUM 8.5 mg/dL (8.5-10.1); CREATININE 1.1 mg/dL (0.7-1.3); GFR 69.8; POTASSIUM 3.5 mmol/L (3.5-5.1); TOTAL BILIRUBIN 0.6 mg/dL (0.2-1.0); TOTAL PROTEIN 6.6 g/dL (6.4-8.2)
--- NOTE | 2019-10-11 09:30 | PDOC ---
[facility] [facility] PROGRESS NOTE Chief Complaint Chief Complaint Recurrent and worsening Covid-19 syndrome Respiratory failure Acute pneumonia Transaminase-itis leukopenia Diarrhea Sepsis Headache History of Present Illness History of Present Illness 10/11/2019 Patient seen and examined He continues to require more and more oxygen Now on 100% nonrebreather Discussed with RN Chart reviewed 10/10/2019 Patient seen and examined He appears quite ill He is short of breath and hypoxic at 87% despite being on O2 per nasal cannula I called the pharmacy to order some convalescent plasma but they explained only certain doctors are allowed to order it I called Dr. Enciso, he was not sure how to get it either (but he did order the Remdesivir and we certainly appreciate his input and help) I notified Dr. Salguero of the situation, and he is going to call in order the convalescent plasma for us. Thank you Chart reviewed Discussed with RN I reviewed the chest x-ray myself it is showing worsening congestion bilaterally as well as borderline cardiomegaly I went ahead and consulted cardiology also Vitals/I&O Vitals/I&O: Vital Signs Date Time Temp Pulse Resp B/P (MAP) Pulse Ox O2 Delivery O2 Flow Rate FiO2 10/11/19 03:15 99.2 94 22 137/75 (95) 90 Nasal Cannula 5.0 99.2 I & O 10/10/19 10/10/19 10/11/19 15:00 23:00 07:00 Intake Total 480 ml 840 ml 600 ml Output Total 400 ml 150 ml Balance 80 ml 690 ml 600 ml Physical Exam General: moderate distress, Other (Looks a little scared and short of breath perhaps slightly confused even) Heart: Other (Tachycardic with S1-S2 and subtle S3 gallop) Lungs: Crackles Abdomen: Normal bowel sounds, Soft, No tenderness, No hepatosplenomegaly, No masses Extremities: No clubbing, No cyanosis, No edema, Normal pulses, No tenderness/swelling Skin: No rashes, No breakdown, No significant lesion Labs Labs: Laboratory Tests Test 10/11/19 03:25 White Blood Count 6.0 x10^3/uL (4.0-11.0) Red Blood Count 4.22 x10^6/uL (4.30-5.70) Hemoglobin 13.3 g/dL (13.0-17.5) Hematocrit 38.3 % (39.0-53.0) Mean Corpuscular Volume 91 fL (79-100) Mean Corpuscular Hemoglobin 32 pg (25-35) Mean Corpuscular Hemoglobin Concent 35 g/dL (31-37) Red Cell Distribution Width 13.1 % (11.5-14.5) Platelet Count 245 x10^3/uL (140-400) Neutrophils (%) (Auto) 84 % (31-73) Lymphocytes (%) (Auto) 13 % (24-48) Monocytes (%) (Auto) 3 % (0-9) Eosinophils (%) (Auto) 0 % (0-3) Basophils (%) (Auto) 0 % (0-3) Neutrophils # (Auto) 5.0 x10^3/uL (1.8-7.7) Lymphocytes # (Auto) 0.8 x10^3/uL (1.0-4.8) Monocytes # (Auto) 0.2 x10^3/uL (0.0-1.1) Eosinophils # (Auto) 0.0 x10^3/uL (0.0-0.7) Basophils # (Auto) 0.0 x10^3/uL (0.0-0.2) Sodium Level 134 mmol/L (136-145) Potassium Level 3.5 mmol/L (3.5-5.1) Chloride Level 98 mmol/L (98-107) Carbon Dioxide Level 24 mmol/L (21-32) Anion Gap 12 (6-14) Blood Urea Nitrogen 14 mg/dL (8-26) Creatinine 1.1 mg/dL (0.7-1.3) Estimated GFR (Cockcroft-Gault) 69.8 BUN/Creatinine Ratio 13 (6-20) Glucose Level 120 mg/dL (70-99) Calcium Level 8.5 mg/dL (8.5-10.1) Total Bilirubin 0.6 mg/dL (0.2-1.0) Aspartate Amino Transf (AST/SGOT) 163 U/L (15-37) Alanine Aminotransferase (ALT/SGPT) 116 U/L (16-63) Alkaline Phosphatase 95 U/L (46-116) Total Protein 6.6 g/dL (6.4-8.2) Albumin 2.7 g/dL (3.4-5.0) Albumin/Globulin Ratio 0.7 (1.0-1.7) Review of Systems Review of Systems: Complains of shortness of breath complains of confusion Assessment and Plan Assessmemt and Plan Problems Medical Problems: (1) COVID-19 virus infection Status: Acute (2) Pneumonia Status: Acute COVID-19 syndrome Fulminant respiratory failure Hypoxia Pneumonia Transaminase-itis Hyponatremia Diarrhea Sepsis Headache Plan We have arranged for him to receive some convalescent plasma please see above IV Remdesivir Zinc Zosyn Zyvox Supplemental O2 Duo nebs DVT prophylaxis Home meds Full code Cardiac monitoring Trend labs I have consulted infectious disease pulmonary cardiology and I am going to consult GI as well Prognosis guarded Comment Review of Relevant I have reviewed the following items alyssa (where applicable) has been applied. Medications: Current Medications Medications (Trade) Dose Ordered Sig/Melissa Route PRN Reason Start Time Stop Time Status Last Admin Dose Admin Potassium Chloride (Klor-Con) 40 meq 1X ONCE PO 10/10/19 12:45 10/10/19 12:46 DC 10/10/19 12:11 Justicifation of Admission Dx: Justifications for Admission: Justification of Admission Dx: Yes Respiratory Failure: Severe Resp Distress FOUZIA LAMAR III DO Oct 11, 2019 09:30
[2019-10-11] MEDS: NON FORMULARY ITEM 1 EA in IV NORMAL SALINE 250ML 250 ML IV SCH (09:32)
[2019-10-11] MEDS: ZINC SULFATE 220 MG CAPSULE. PO SCH (09:33)
[2019-10-11] MEDS: ENOXAPARIN 40 MG/0.4 ML SYRINGE. SQ SCH ×2 (09:33→20:12)
[2019-10-11] MEDS: LINEZOLID 600 MG TABLET PO SCH ×2 (09:33→20:11)
[2019-10-11] MEDS: FAMOTIDINE 20 MG TABLET. PO SCH ×2 (09:33→20:11)
--- NOTE | 2019-10-11 12:11 | PDOC ---
Infectious Disease Note Subjective Subjective Still some fever and cough persists. Loose stool. Rare Nausea. Some SOA No rash/dysuria ROS ROS o/w neg Vital Sign Vital Signs Vital Signs Date Time Temp Pulse Resp B/P (MAP) Pulse Ox O2 Delivery O2 Flow Rate FiO2 10/11/19 11:00 99.9 86 22 148/76 (100) 93 Simple Mask 6.0 99.9 Physical Exam PHYSICAL EXAM CONSTITUTIONAL: He is a very pleasant gentleman. He is cooperative. He is in no mild distress. Sittingup on side of bed. On facemask HEENT: Pupils are equal and reactive. He has normal conjunctivae. Oral cavity, pharynx is clear. NECK: Supple. Good range of motion. LUNGS: Has some mild crackles at the base. HEART: S1, S2. ABDOMEN: Soft, nontender, nondistended, positive bowel sounds. EXTREMITIES: Without clubbing or cyanosis. No gross edema. SKIN: Warm to touch without signs of rash. NEUROLOGIC: Nonfocal and pleasant. PSYCHIATRIC: Affect is appropriate Labs Lab Laboratory Tests Test 10/11/19 03:25 White Blood Count 6.0 x10^3/uL (4.0-11.0) Red Blood Count 4.22 x10^6/uL (4.30-5.70) Hemoglobin 13.3 g/dL (13.0-17.5) Hematocrit 38.3 % (39.0-53.0) Mean Corpuscular Volume 91 fL (79-100) Mean Corpuscular Hemoglobin 32 pg (25-35) Mean Corpuscular Hemoglobin Concent 35 g/dL (31-37) Red Cell Distribution Width 13.1 % (11.5-14.5) Platelet Count 245 x10^3/uL (140-400) Neutrophils (%) (Auto) 84 % (31-73) Lymphocytes (%) (Auto) 13 % (24-48) Monocytes (%) (Auto) 3 % (0-9) Eosinophils (%) (Auto) 0 % (0-3) Basophils (%) (Auto) 0 % (0-3) Neutrophils # (Auto) 5.0 x10^3/uL (1.8-7.7) Lymphocytes # (Auto) 0.8 x10^3/uL (1.0-4.8) Monocytes # (Auto) 0.2 x10^3/uL (0.0-1.1) Eosinophils # (Auto) 0.0 x10^3/uL (0.0-0.7) Basophils # (Auto) 0.0 x10^3/uL (0.0-0.2) Sodium Level 134 mmol/L (136-145) Potassium Level 3.5 mmol/L (3.5-5.1) Chloride Level 98 mmol/L (98-107) Carbon Dioxide Level 24 mmol/L (21-32) Anion Gap 12 (6-14) Blood Urea Nitrogen 14 mg/dL (8-26) Creatinine 1.1 mg/dL (0.7-1.3) Estimated GFR (Cockcroft-Gault) 69.8 BUN/Creatinine Ratio 13 (6-20) Glucose Level 120 mg/dL (70-99) Calcium Level 8.5 mg/dL (8.5-10.1) Total Bilirubin 0.6 mg/dL (0.2-1.0) Aspartate Amino Transf (AST/SGOT) 163 U/L (15-37) Alanine Aminotransferase (ALT/SGPT) 116 U/L (16-63) Alkaline Phosphatase 95 U/L (46-116) Total Protein 6.6 g/dL (6.4-8.2) Albumin 2.7 g/dL (3.4-5.0) Albumin/Globulin Ratio 0.7 (1.0-1.7) Micro Microbiology 10/09/19 Blood Culture - Preliminary, Resulted NO GROWTH AFTER 2 DAYS Objective Assessment COVID + on 10/01 s/p Plasma 10/09 and started Remdesivir also. LDH/CRP and LFTs up Fever ? plasma vs ifnection Acute hypoxic resp failure on 6 L 92% Abnormal CXR Transaminitis Plan Plan of Care Cont Zosyn/Azithromycin Added Zyvox 10/10 Begin Remdesivir 10/09 F/u labs -LDH/CRP/CMP/CBC and cults to go to ICU for monitoring D/w Dr. Salguero and nursing JUANJOSE MENDOZA MD Oct 11, 2019 12:11
--- NOTE | 2019-10-11 12:38 | PDOC2 ---
DARNELL PAREDES MAILING MACHINE ASSISTANT 10/11/19 1238: CARDIAC CONSULT DATE OF CONSULT Date of Consult DATE: 10/11/19 TIME: 12:32 REASON FOR CONSULT Reason for Consult: Possible CHF REFERRING PHYSICIAN Referring Physician: Dr. Davenport SOURCE Source: Chart review, Patient HISTORY OF PRESENT ILLNESS HISTORY OF PRESENT ILLNESS This is a 54 yo male, with known COVID infection, who presented secondary to fever/chills, headache, abdominal and chest pain, cough, and shortness of breath. Tested + for COVID 10/01. Was discharge home to self quarantine. Came back to the ED 10/05 with worsening SOA. Treated and discharged home 10/07/09 and returned the following day with worsening SOA, fevers/chills, chest pain, and MCNULTY. Denies any dizziness, diaphoresis, or nausea/vomiting. PAST MEDICAL HISTORY Cardiovascular: No pertinent hx Pulmonary: No pertinent hx PAST SURGICAL HISTORY Past Surgical History: No pertinent history FAMILY HISTORY Family History: Hypertension SOCIAL HISTORY Smoke: No ALCOHOL: none Drugs: None Lives: Alone CURRENT MEDICATIONS CURRENT MEDICATIONS Current Medications Medications (Trade) Dose Ordered Sig/Melissa Route PRN Reason Start Time Stop Time Status Last Admin Dose Admin Non-Formulary Medication 1 ea/ Sodium Chloride 250 ml @ 500 mls/hr Q24H IV 10/11/19 09:00 10/14/19 09:29 10/11/19 09:32 Potassium Chloride (Klor-Con) 40 meq 1X ONCE PO 10/10/19 12:45 10/10/19 12:46 DC 10/10/19 12:11 ALLERGIES ALLERGIES: Coded Allergies: No Known Drug Allergies (Unverified , 10/02/19) PT REPORTS NKDA ROS Review of System 14 point ROS conducted with pertinent positives noted above in hPI PHYSICAL EXAM General: Alert, Oriented X3, Cooperative, No acute distress HEENT: Atraumatic, Mucous membr. moist/pink Lungs: Other (diminished throughout) Heart: Regular rate (SR/ST) Abdomen: Soft, No tenderness Extremities: No edema Skin: No breakdown, No significant lesion Neuro: Normal speech, Sensation intact Psych/Mental Status: Mental status NL, Mood NL MUSCULOSKELETAL: No deformity VITALS/I&O VITALS/I&O: Vital Signs Date Time Temp Pulse Resp B/P (MAP) Pulse Ox O2 Delivery O2 Flow Rate FiO2 6/15/20 11:00 99.9 86 22 148/76 (100) 93 Simple Mask 6.0 99.9 I & O 10/10/19 10/10/19 10/11/19 15:00 23:00 07:00 Intake Total 480 ml 840 ml 600 ml Output Total 400 ml 150 ml Balance 80 ml 690 ml 600 ml LABS Lab: Laboratory Tests Test 10/11/19 03:25 White Blood Count 6.0 x10^3/uL (4.0-11.0) Red Blood Count 4.22 x10^6/uL (4.30-5.70) L Hemoglobin 13.3 g/dL (13.0-17.5) Hematocrit 38.3 % (39.0-53.0) L Mean Corpuscular Volume 91 fL (79-100) Mean Corpuscular Hemoglobin 32 pg (25-35) Mean Corpuscular Hemoglobin Concent 35 g/dL (31-37) Red Cell Distribution Width 13.1 % (11.5-14.5) Platelet Count 245 x10^3/uL (140-400) Neutrophils (%) (Auto) 84 % (31-73) H Lymphocytes (%) (Auto) 13 % (24-48) L Monocytes (%) (Auto) 3 % (0-9) Eosinophils (%) (Auto) 0 % (0-3) Basophils (%) (Auto) 0 % (0-3) Neutrophils # (Auto) 5.0 x10^3/uL (1.8-7.7) Lymphocytes # (Auto) 0.8 x10^3/uL (1.0-4.8) L Monocytes # (Auto) 0.2 x10^3/uL (0.0-1.1) Eosinophils # (Auto) 0.0 x10^3/uL (0.0-0.7) Basophils # (Auto) 0.0 x10^3/uL (0.0-0.2) Sodium Level 134 mmol/L (136-145) L Potassium Level 3.5 mmol/L (3.5-5.1) Chloride Level 98 mmol/L (98-107) Carbon Dioxide Level 24 mmol/L (21-32) Anion Gap 12 (6-14) Blood Urea Nitrogen 14 mg/dL (8-26) Creatinine 1.1 mg/dL (0.7-1.3) Estimated GFR (Cockcroft-Gault) 69.8 BUN/Creatinine Ratio 13 (6-20) Glucose Level 120 mg/dL (70-99) H Calcium Level 8.5 mg/dL (8.5-10.1) Total Bilirubin 0.6 mg/dL (0.2-1.0) Aspartate Amino Transferase (AST) 163 U/L (15-37) H Alanine Aminotransferase (ALT) 116 U/L (16-63) H Alkaline Phosphatase 95 U/L (46-116) Total Protein 6.6 g/dL (6.4-8.2) Albumin 2.7 g/dL (3.4-5.0) L Albumin/Globulin Ratio 0.7 (1.0-1.7) L Laboratory Tests 10/11/19 03:25 Laboratory Tests 10/11/19 03:25 ASSESSMENT/PLAN ASSESSMENT/PLAN 1. Acute respiratory failure secondary to COVID PNA. COVID + 10/01. Started on Remdesivir. No clinical evidence of fluid overload, NT Pro BNP 192- doubt overt heart failure 2. Fevers 3. Chest pain, atypical; AMI ruled out. Most probably secondary to above. 4. Elevated LFTs Recommendations Lipids Plan for outpatient echocardiogram Ongoing lung optimization and treatment of COVID as per pulm and ID Supportive care from a CV standpoint RUFINO SAENZ MD 10/11/19 1644: CARDIAC CONSULT ASSESSMENT/PLAN ASSESSMENT/PLAN Patient seen and examined. Agree with [employer]'s assessment and plan. Acute respiratory failure secondary to COVID pneumonia. Doubt CHF based on clinical presentation. BNP level only 192. Continue current management per pulmonary team. Chest pain with atypical features. Myocardial infarction has been ruled out. We will plan 2D echo and ischemic evaluation as an outpatient. Thank you for your consultation. DARNELL PAREDES APRN Oct 11, 2019 12:38 RUFINO SAENZ MD Oct 11, 2019 16:44
[2019-10-11] MEDS: LACTOBACILLUS RHAMNOSUS GG 1 CAPSULE. PO SCH ×2 (12:40→20:11)
--- NOTE | 2019-10-11 12:46 | PDOC ---
Objective: Objective: D/w nurse - loose stools - couple overnight, small amount this morning. Otherwise no GI concerns. Vital Signs: Vital Signs Date Time Temp Pulse Resp B/P (MAP) Pulse Ox O2 Delivery O2 Flow Rate FiO2 10/11/19 11:00 99.9 86 22 148/76 (100) 93 Simple Mask 6.0 99.9 Labs: Laboratory Tests Test 10/11/19 03:25 White Blood Count 6.0 x10^3/uL Red Blood Count 4.22 x10^6/uL Hemoglobin 13.3 g/dL Hematocrit 38.3 % Mean Corpuscular Volume 91 fL Mean Corpuscular Hemoglobin 32 pg Mean Corpuscular Hemoglobin Concent 35 g/dL Red Cell Distribution Width 13.1 % Platelet Count 245 x10^3/uL Neutrophils (%) (Auto) 84 % Lymphocytes (%) (Auto) 13 % Monocytes (%) (Auto) 3 % Eosinophils (%) (Auto) 0 % Basophils (%) (Auto) 0 % Neutrophils # (Auto) 5.0 x10^3/uL Lymphocytes # (Auto) 0.8 x10^3/uL Monocytes # (Auto) 0.2 x10^3/uL Eosinophils # (Auto) 0.0 x10^3/uL Basophils # (Auto) 0.0 x10^3/uL Sodium Level 134 mmol/L Potassium Level 3.5 mmol/L Chloride Level 98 mmol/L Carbon Dioxide Level 24 mmol/L Anion Gap 12 Blood Urea Nitrogen 14 mg/dL Creatinine 1.1 mg/dL Estimated GFR (Cockcroft-Gault) 69.8 BUN/Creatinine Ratio 13 Glucose Level 120 mg/dL Calcium Level 8.5 mg/dL Total Bilirubin 0.6 mg/dL Aspartate Amino Transf (AST/SGOT) 163 U/L Alanine Aminotransferase (ALT/SGPT) 116 U/L Alkaline Phosphatase 95 U/L Total Protein 6.6 g/dL Albumin 2.7 g/dL Albumin/Globulin Ratio 0.7 BLOOD CULTURE Preliminary NO GROWTH AFTER 2 DAYS PE: in isolation GEN: temp 100.0 max LUNGS: breathing mask HEART: some tachycardia noted A/P: COVID+, resp failure Elevated AST and ALT - worse today Loose stools -- Will review w/ Dr. Dhillon. Justicifation of Admission Dx: Justifications for Admission: Justification of Admission Dx: Yes Respiratory Failure: Severe Resp Distress JAVIER VERA Oct 11, 2019 12:46
--- NOTE | 2019-10-11 12:54 | NUR ---
SW following for discharge planning. SW reviewed chart and spoke with RN. Pt has a simple mask for 02 and is being transferred to the ICU per Dr. Salguero. Pt SOB and COVID positive. Pt has an elevated temperature and is on IV meds.
[2019-10-11] MEDS: AZITHROMYCIN 500 MG in IV NORMAL SALINE 250ML 250 ML IV SCH (14:29)
[2019-10-11 15:40] LABS: CHOLESTEROL/HDL RATIO 2.9
--- NOTE | 2019-10-11 15:47 | PDOC ---
PULMONARY PROGRESS NOTES Subjective O2 requirement is increasing now on 10 litres Vitals Vital Signs Date Time Temp Pulse Resp B/P (MAP) Pulse Ox O2 Delivery O2 Flow Rate FiO2 10/11/19 14:01 98.6 90 28 137/74 (95) 93 NonRebreather Mask 10.0 98.6 Comments on 02 appears comfortable no resp distress less cough no paradoxical abd motion no audible wheezing alert and orientated no rash no edema General: Alert Labs Laboratory Tests Test 10/10/19 04:40 10/11/19 03:25 White Blood Count 4.9 x10^3/uL (4.0-11.0) 6.0 x10^3/uL (4.0-11.0) Red Blood Count 4.29 x10^6/uL (4.30-5.70) 4.22 x10^6/uL (4.30-5.70) Hemoglobin 13.8 g/dL (13.0-17.5) 13.3 g/dL (13.0-17.5) Hematocrit 38.4 % (39.0-53.0) 38.3 % (39.0-53.0) Mean Corpuscular Volume 89 fL (79-100) 91 fL (79-100) Mean Corpuscular Hemoglobin 32 pg (25-35) 32 pg (25-35) Mean Corpuscular Hemoglobin Concent 36 g/dL (31-37) 35 g/dL (31-37) Red Cell Distribution Width 13.2 % (11.5-14.5) 13.1 % (11.5-14.5) Platelet Count 211 x10^3/uL (140-400) 245 x10^3/uL (140-400) Neutrophils (%) (Auto) 85 % (31-73) 84 % (31-73) Lymphocytes (%) (Auto) 12 % (24-48) 13 % (24-48) Monocytes (%) (Auto) 3 % (0-9) 3 % (0-9) Eosinophils (%) (Auto) 0 % (0-3) 0 % (0-3) Basophils (%) (Auto) 0 % (0-3) 0 % (0-3) Neutrophils # (Auto) 4.1 x10^3/uL (1.8-7.7) 5.0 x10^3/uL (1.8-7.7) Lymphocytes # (Auto) 0.6 x10^3/uL (1.0-4.8) 0.8 x10^3/uL (1.0-4.8) Monocytes # (Auto) 0.1 x10^3/uL (0.0-1.1) 0.2 x10^3/uL (0.0-1.1) Eosinophils # (Auto) 0.0 x10^3/uL (0.0-0.7) 0.0 x10^3/uL (0.0-0.7) Basophils # (Auto) 0.0 x10^3/uL (0.0-0.2) 0.0 x10^3/uL (0.0-0.2) Prothrombin Time 15.2 SEC (11.7-14.0) Prothromb Time International Ratio 1.2 (0.8-1.1) Activated Partial Thromboplast Time 44 SEC (24-38) Fibrinogen 647 mg/dL (200-440) D-Dimer (Cris) ug/mlFEU (0.00-0.50) Sodium Level 133 mmol/L (136-145) 134 mmol/L (136-145) Potassium Level 3.3 mmol/L (3.5-5.1) 3.5 mmol/L (3.5-5.1) Chloride Level 97 mmol/L (98-107) 98 mmol/L (98-107) Carbon Dioxide Level 24 mmol/L (21-32) 24 mmol/L (21-32) Anion Gap 12 (6-14) 12 (6-14) Blood Urea Nitrogen 12 mg/dL (8-26) 14 mg/dL (8-26) Creatinine 1.1 mg/dL (0.7-1.3) 1.1 mg/dL (0.7-1.3) Estimated GFR (Cockcroft-Gault) 69.8 69.8 BUN/Creatinine Ratio 11 (6-20) 13 (6-20) Glucose Level 129 mg/dL (70-99) 120 mg/dL (70-99) Calcium Level 8.3 mg/dL (8.5-10.1) 8.5 mg/dL (8.5-10.1) Total Bilirubin 0.5 mg/dL (0.2-1.0) 0.6 mg/dL (0.2-1.0) Aspartate Amino Transf (AST/SGOT) 79 U/L (15-37) 163 U/L (15-37) Alanine Aminotransferase (ALT/SGPT) 74 U/L (16-63) 116 U/L (16-63) Alkaline Phosphatase 91 U/L (46-116) 95 U/L (46-116) Lactate Dehydrogenase 521 U/L (85-227) Troponin I Quantitative < 0.017 ng/mL (0.000-0.055) C-Reactive Protein, Quantitative 172.1 mg/L (0-3.3) Total Protein 6.9 g/dL (6.4-8.2) 6.6 g/dL (6.4-8.2) Albumin 3.0 g/dL (3.4-5.0) 2.7 g/dL (3.4-5.0) Albumin/Globulin Ratio 0.8 (1.0-1.7) 0.7 (1.0-1.7) YL-Jpx-L-Type Natriuretic Peptide 192 pg/mL (0-124) Triglycerides Level 85 mg/dL (0-150) Cholesterol Level 76 mg/dL (0-200) LDL Cholesterol, Calculated 33 mg/dL (0-100) VLDL Cholesterol, Calculated 17 mg/dL (0-40) Non-HDL Cholesterol Calculated 50 mg/dL (0-129) HDL Cholesterol 26 mg/dL (40-60) Cholesterol/HDL Ratio 2.9 Laboratory Tests Test 10/11/19 03:25 White Blood Count 6.0 x10^3/uL (4.0-11.0) Red Blood Count 4.22 x10^6/uL (4.30-5.70) Hemoglobin 13.3 g/dL (13.0-17.5) Hematocrit 38.3 % (39.0-53.0) Mean Corpuscular Volume 91 fL (79-100) Mean Corpuscular Hemoglobin 32 pg (25-35) Mean Corpuscular Hemoglobin Concent 35 g/dL (31-37) Red Cell Distribution Width 13.1 % (11.5-14.5) Platelet Count 245 x10^3/uL (140-400) Neutrophils (%) (Auto) 84 % (31-73) Lymphocytes (%) (Auto) 13 % (24-48) Monocytes (%) (Auto) 3 % (0-9) Eosinophils (%) (Auto) 0 % (0-3) Basophils (%) (Auto) 0 % (0-3) Neutrophils # (Auto) 5.0 x10^3/uL (1.8-7.7) Lymphocytes # (Auto) 0.8 x10^3/uL (1.0-4.8) Monocytes # (Auto) 0.2 x10^3/uL (0.0-1.1) Eosinophils # (Auto) 0.0 x10^3/uL (0.0-0.7) Basophils # (Auto) 0.0 x10^3/uL (0.0-0.2) Sodium Level 134 mmol/L (136-145) Potassium Level 3.5 mmol/L (3.5-5.1) Chloride Level 98 mmol/L (98-107) Carbon Dioxide Level 24 mmol/L (21-32) Anion Gap 12 (6-14) Blood Urea Nitrogen 14 mg/dL (8-26) Creatinine 1.1 mg/dL (0.7-1.3) Estimated GFR (Cockcroft-Gault) 69.8 BUN/Creatinine Ratio 13 (6-20) Glucose Level 120 mg/dL (70-99) Calcium Level 8.5 mg/dL (8.5-10.1) Total Bilirubin 0.6 mg/dL (0.2-1.0) Aspartate Amino Transf (AST/SGOT) 163 U/L (15-37) Alanine Aminotransferase (ALT/SGPT) 116 U/L (16-63) Alkaline Phosphatase 95 U/L (46-116) VM-Nfs-J-Type Natriuretic Peptide 192 pg/mL (0-124) Total Protein 6.6 g/dL (6.4-8.2) Albumin 2.7 g/dL (3.4-5.0) Albumin/Globulin Ratio 0.7 (1.0-1.7) Triglycerides Level 85 mg/dL (0-150) Cholesterol Level 76 mg/dL (0-200) LDL Cholesterol, Calculated 33 mg/dL (0-100) VLDL Cholesterol, Calculated 17 mg/dL (0-40) Non-HDL Cholesterol Calculated 50 mg/dL (0-129) HDL Cholesterol 26 mg/dL (40-60) Cholesterol/HDL Ratio 2.9 Medications Active Scripts Medications Dose Route/Sig Max Daily Dose Days Date Category Proair Hfa Inhaler (Albuterol Sulfate) 8.5 Gm Hfa.aer.ad 2 Puff IH PRN Q4-6HRS PRN 21 10/06/19 Rx Mucinex Dm Er 600-30 Mg Tablet (Guaifenesin/Dextromethorphan) 1 Each Tab.er.12h 1 Tab PO PRN BID PRN 14 10/06/19 Rx Tylenol With Codeine #3 Tablet (Acetaminophen/Codeine Phosphate) 1 Each Tablet 1 Tab PO PRN Q8HRS PRN 10/06/19 Rx Zithromax (Azithromycin) 500 Mg Tablet 1 Tab PO DAILY 10/02/19 Rx Comments cxr reviewed Impression . IMPRESSION: 1. COVID-19 pneumonia with worsening hypoxia and ALI 2. Abnormal chest x-ray c/w COVID-19 pneumonia 3. Mildly elevated AST and ALT, suspect secondary to COVID-19. 4. Leukopenia. 5. Mild hyponatremia. Plan . PLAN AND RECOMMENDATIONS: 1. Titrate FiO2 to keep O2 saturation more than 94%.Transfer to ICU. Will initiate Vapotherm/ high flow O2 2. Agree with antibiotic Zosyn and azithromycin. zyvox added 3. aggressive DVT prophylaxis. 4. Lovenox 40 mg subcutaneous b.i.d. 5. ID Rec. On Remdesivir. Received Plasma 10/09 .f/u Inflammatory markers 6. Monitor respiratory status very closely. 7. Protonix for stress ulcer prophylaxis. 8. Discussed with rn cardiovascular icu to ICU BEN GRAHAM MD Oct 11, 2019 15:47
--- NOTE | 2019-10-11 17:57 | NUR ---
VAPOTHERM NOT TOLERATED BY PATIENT, C/O DIZZINESS AND COUGHING.
[2019-10-11] MEDS: ALPRAZolam 0.5 MG TABLET PO PRN (18:15)
[2019-10-11] MEDS: TEMAZEPAM 15 MG CAPSULE PO PRN (20:11)
[2019-10-11] MEDS ORDERED: LACTOBACILLUS RHAMNOSUS GG 1 CAPSULE. PO SCH (21:00)
[2019-10-12] VITALS (11 sets, daily range): BP systolic 128–186; BP diastolic 70–99
[2019-10-12 04:13] LABS: BASO % 0 % (0-3); EOS % 0 % (0-3); HEMATOCRIT 37.1 % (39.0-53.0); LYMPH # 0.9 x10^3/uL (1.0-4.8); LYMPH % 15 % (24-48); MEAN CORPUSCULAR HEMOGLOBIN 32 pg (25-35); MEAN CORPUSCULAR HGB CONC 35 g/dL (31-37); MEAN CORPUSCULAR VOLUME 91 fL (79-100); MONO # 0.2 x10^3/uL (0.0-1.1); MONO % 3 % (0-9); NEUT # 4.8 x10^3/uL (1.8-7.7); NEUT % 81 % (31-73); PLATELET COUNT 302 x10^3/uL (140-400); RED CELL DISTRIBUTION WIDTH 13.5 % (11.5-14.5); WHITE BLOOD COUNT 5.9 x10^3/uL (4.0-11.0)
[2019-10-12 04:44] LABS: ALBUMIN 2.8 g/dL (3.4-5.0); ALBUMIN/GLOBULIN RATIO 0.7 (1.0-1.7); C-REACTIVE PROTEIN 208.1 mg/L (0-3.3); CALCIUM 8.8 mg/dL (8.5-10.1); CREATININE 1.1 mg/dL (0.7-1.3); GFR 69.8; POTASSIUM 3.7 mmol/L (3.5-5.1); TOTAL BILIRUBIN 0.8 mg/dL (0.2-1.0); TOTAL PROTEIN 7.1 g/dL (6.4-8.2)
[2019-10-12] MEDS: PIPERACILLIN/TAZOBACTAM 3.375 GM in IV NORMAL SALINE 50ML 50 ML IV SCH (06:05)
--- NOTE | 2019-10-12 08:28 | PDOC ---
Infectious Disease Note Subjective Subjective Less fever, cough and loose stool. Rare Nausea. Some SOA No rash/dysuria ROS ROS o/w neg Vital Sign Vital Signs Vital Signs Date Time Temp Pulse Resp B/P (MAP) Pulse Ox O2 Delivery O2 Flow Rate FiO2 10/12/19 06:09 98.8 90 22 134/70 (91) 98 NonRebreather Mask 15.0 98.8 Physical Exam PHYSICAL EXAM CONSTITUTIONAL: He is a very pleasant gentleman. He is cooperative. He is in no mild distress. Sitting up in chair. On facemask. Looks a little tired HEENT: Pupils are equal and reactive. He has normal conjunctivae. Oral cavity, pharynx is clear. NECK: Supple. Good range of motion. LUNGS: Has some mild crackles at the base. HEART: S1, S2. ABDOMEN: Soft, nontender, nondistended, positive bowel sounds. EXTREMITIES: Without clubbing or cyanosis. No gross edema. SKIN: Warm to touch without signs of rash. NEUROLOGIC: Nonfocal and pleasant. PSYCHIATRIC: Affect is appropriate Labs Lab Laboratory Tests Test 10/12/19 03:40 White Blood Count 5.9 x10^3/uL (4.0-11.0) Red Blood Count 4.10 x10^6/uL (4.30-5.70) Hemoglobin 13.0 g/dL (13.0-17.5) Hematocrit 37.1 % (39.0-53.0) Mean Corpuscular Volume 91 fL (79-100) Mean Corpuscular Hemoglobin 32 pg (25-35) Mean Corpuscular Hemoglobin Concent 35 g/dL (31-37) Red Cell Distribution Width 13.5 % (11.5-14.5) Platelet Count 302 x10^3/uL (140-400) Neutrophils (%) (Auto) 81 % (31-73) Lymphocytes (%) (Auto) 15 % (24-48) Monocytes (%) (Auto) 3 % (0-9) Eosinophils (%) (Auto) 0 % (0-3) Basophils (%) (Auto) 0 % (0-3) Neutrophils # (Auto) 4.8 x10^3/uL (1.8-7.7) Lymphocytes # (Auto) 0.9 x10^3/uL (1.0-4.8) Monocytes # (Auto) 0.2 x10^3/uL (0.0-1.1) Eosinophils # (Auto) 0.0 x10^3/uL (0.0-0.7) Basophils # (Auto) 0.0 x10^3/uL (0.0-0.2) Sodium Level 135 mmol/L (136-145) Potassium Level 3.7 mmol/L (3.5-5.1) Chloride Level 97 mmol/L (98-107) Carbon Dioxide Level 29 mmol/L (21-32) Anion Gap 9 (6-14) Blood Urea Nitrogen 17 mg/dL (8-26) Creatinine 1.1 mg/dL (0.7-1.3) Estimated GFR (Cockcroft-Gault) 69.8 BUN/Creatinine Ratio 15 (6-20) Glucose Level 109 mg/dL (70-99) Calcium Level 8.8 mg/dL (8.5-10.1) Total Bilirubin 0.8 mg/dL (0.2-1.0) Aspartate Amino Transf (AST/SGOT) 137 U/L (15-37) Alanine Aminotransferase (ALT/SGPT) 146 U/L (16-63) Alkaline Phosphatase 94 U/L (46-116) Lactate Dehydrogenase 681 U/L (85-227) C-Reactive Protein, Quantitative 208.1 mg/L (0-3.3) Total Protein 7.1 g/dL (6.4-8.2) Albumin 2.8 g/dL (3.4-5.0) Albumin/Globulin Ratio 0.7 (1.0-1.7) Micro Microbiology 10/09/19 Blood Culture - Preliminary, Resulted NO GROWTH AFTER 2 DAYS Objective Assessment COVID + on 10/01 s/p Plasma 10/09 and started Remdesivir also. LDH/CRP and LFTs up Fever ? plasma vs infection - curve improving Acute hypoxic resp failure on 10 L facemask but down from 15 Abnormal CXR Transaminitis Plan Plan of Care D/cont Zosyn and Azithromycin today Added Zyvox 10/10 Begin Remdesivir 10/09 F/u labs -LDH/CRP/CMP/CBC and cults Cont in ICU for monitoring D/w nursing JUANJOSE MENDOZA MD Oct 12, 2019 08:28
[2019-10-12] MEDS: ZINC SULFATE 220 MG CAPSULE. PO SCH (09:38)
[2019-10-12] MEDS: ENOXAPARIN 40 MG/0.4 ML SYRINGE. SQ SCH (09:38)
[2019-10-12] MEDS: FAMOTIDINE 20 MG TABLET. PO SCH (09:38)
[2019-10-12] MEDS: NON FORMULARY ITEM 1 EA in IV NORMAL SALINE 250ML 250 ML IV SCH (09:38)
[2019-10-12] MEDS: LINEZOLID 600 MG TABLET PO SCH (09:38)
[2019-10-12] MEDS: LACTOBACILLUS RHAMNOSUS GG 1 CAPSULE. PO SCH (09:38)
--- NOTE | 2019-10-12 09:51 | NUR ---
SW following for discharge planning. THIEN reviewed chart and spoke with RN. Pt on a nonrebreather mask with crackles in lungs. SW to continue following.
--- NOTE | 2019-10-12 09:52 | PDOC ---
PROGRESS NOTES Chief Complaint Chief Complaint Recurrent and worsening Covid-19 syndrome Respiratory failure Acute pneumonia Transaminase-itis leukopenia Diarrhea Sepsis Headache History of Present Illness History of Present Illness 10/11/2019 No acute events reported overnight, case discussed with nursing staff patient in no acute distress no complaints during my visit, continues to require nonrebreather mask noted to keep his oxygen saturation above 90%. Patient seems quite antsy and anxious of being in isolation, reassurance has been provided and the plan of care explained in detail 10/11/2019 Patient seen and examined He continues to require more and more oxygen Now on 100% nonrebreather Discussed with RN Chart reviewed 10/10/2019 Patient seen and examined He appears quite ill He is short of breath and hypoxic at 87% despite being on O2 per nasal cannula I called the pharmacy to order some convalescent plasma but they explained only certain doctors are allowed to order it I called Dr. Enciso, he was not sure how to get it either (but he did order the Remdesivir and we certainly appreciate his input and help) I notified Dr. Salguero of the situation, and he is going to call in order the convalescent plasma for us. Thank you Chart reviewed Discussed with RN I reviewed the chest x-ray myself it is showing worsening congestion bilaterally as well as borderline cardiomegaly I went ahead and consulted cardiology also Vitals Vitals Vital Signs Date Time Temp Pulse Resp B/P (MAP) Pulse Ox O2 Delivery O2 Flow Rate FiO2 10/12/19 06:09 98.8 90 22 134/70 (91) 98 NonRebreather Mask 15.0 98.8 Physical Exam Physical Exam CONSTITUTIONAL: He is a very pleasant gentleman. He is cooperative. He is in no mild distress. Sitting up in chair. On facemask. Looks a little tired HEENT: Pupils are equal and reactive. He has normal conjunctivae. Oral cavity, pharynx is clear. NECK: Supple. Good range of motion. LUNGS: Has some mild crackles at the base. HEART: S1, S2. ABDOMEN: Soft, nontender, nondistended, positive bowel sounds. EXTREMITIES: Without clubbing or cyanosis. No gross edema. SKIN: Warm to touch without signs of rash. NEUROLOGIC: Nonfocal and pleasant. PSYCHIATRIC: Affect is appropriate General: Alert, Oriented X3, Cooperative, No acute distress Heart: Regular rate (SR/ST) Abdomen: Soft, No tenderness Extremities: No edema Skin: No breakdown, No significant lesion Labs LABS Laboratory Tests Test 10/12/19 03:40 White Blood Count 5.9 x10^3/uL (4.0-11.0) Red Blood Count 4.10 x10^6/uL (4.30-5.70) Hemoglobin 13.0 g/dL (13.0-17.5) Hematocrit 37.1 % (39.0-53.0) Mean Corpuscular Volume 91 fL (79-100) Mean Corpuscular Hemoglobin 32 pg (25-35) Mean Corpuscular Hemoglobin Concent 35 g/dL (31-37) Red Cell Distribution Width 13.5 % (11.5-14.5) Platelet Count 302 x10^3/uL (140-400) Neutrophils (%) (Auto) 81 % (31-73) Lymphocytes (%) (Auto) 15 % (24-48) Monocytes (%) (Auto) 3 % (0-9) Eosinophils (%) (Auto) 0 % (0-3) Basophils (%) (Auto) 0 % (0-3) Neutrophils # (Auto) 4.8 x10^3/uL (1.8-7.7) Lymphocytes # (Auto) 0.9 x10^3/uL (1.0-4.8) Monocytes # (Auto) 0.2 x10^3/uL (0.0-1.1) Eosinophils # (Auto) 0.0 x10^3/uL (0.0-0.7) Basophils # (Auto) 0.0 x10^3/uL (0.0-0.2) Sodium Level 135 mmol/L (136-145) Potassium Level 3.7 mmol/L (3.5-5.1) Chloride Level 97 mmol/L (98-107) Carbon Dioxide Level 29 mmol/L (21-32) Anion Gap 9 (6-14) Blood Urea Nitrogen 17 mg/dL (8-26) Creatinine 1.1 mg/dL (0.7-1.3) Estimated GFR (Cockcroft-Gault) 69.8 BUN/Creatinine Ratio 15 (6-20) Glucose Level 109 mg/dL (70-99) Calcium Level 8.8 mg/dL (8.5-10.1) Total Bilirubin 0.8 mg/dL (0.2-1.0) Aspartate Amino Transf (AST/SGOT) 137 U/L (15-37) Alanine Aminotransferase (ALT/SGPT) 146 U/L (16-63) Alkaline Phosphatase 94 U/L (46-116) Lactate Dehydrogenase 681 U/L (85-227) C-Reactive Protein, Quantitative 208.1 mg/L (0-3.3) Total Protein 7.1 g/dL (6.4-8.2) Albumin 2.8 g/dL (3.4-5.0) Albumin/Globulin Ratio 0.7 (1.0-1.7) Assessment and Plan Assessmemt and Plan Problems Medical Problems: (1) COVID-19 virus infection Status: Acute (2) Pneumonia Status: Acute Comment Review of Relevant I have reviewed the following items alyssa (where applicable) has been applied. Labs Laboratory Tests Test 10/11/19 03:25 10/12/19 03:40 White Blood Count 6.0 x10^3/uL (4.0-11.0) 5.9 x10^3/uL (4.0-11.0) Red Blood Count 4.22 x10^6/uL (4.30-5.70) 4.10 x10^6/uL (4.30-5.70) Hemoglobin 13.3 g/dL (13.0-17.5) 13.0 g/dL (13.0-17.5) Hematocrit 38.3 % (39.0-53.0) 37.1 % (39.0-53.0) Mean Corpuscular Volume 91 fL (79-100) 91 fL (79-100) Mean Corpuscular Hemoglobin 32 pg (25-35) 32 pg (25-35) Mean Corpuscular Hemoglobin Concent 35 g/dL (31-37) 35 g/dL (31-37) Red Cell Distribution Width 13.1 % (11.5-14.5) 13.5 % (11.5-14.5) Platelet Count 245 x10^3/uL (140-400) 302 x10^3/uL (140-400) Neutrophils (%) (Auto) 84 % (31-73) 81 % (31-73) Lymphocytes (%) (Auto) 13 % (24-48) 15 % (24-48) Monocytes (%) (Auto) 3 % (0-9) 3 % (0-9) Eosinophils (%) (Auto) 0 % (0-3) 0 % (0-3) Basophils (%) (Auto) 0 % (0-3) 0 % (0-3) Neutrophils # (Auto) 5.0 x10^3/uL (1.8-7.7) 4.8 x10^3/uL (1.8-7.7) Lymphocytes # (Auto) 0.8 x10^3/uL (1.0-4.8) 0.9 x10^3/uL (1.0-4.8) Monocytes # (Auto) 0.2 x10^3/uL (0.0-1.1) 0.2 x10^3/uL (0.0-1.1) Eosinophils # (Auto) 0.0 x10^3/uL (0.0-0.7) 0.0 x10^3/uL (0.0-0.7) Basophils # (Auto) 0.0 x10^3/uL (0.0-0.2) 0.0 x10^3/uL (0.0-0.2) Sodium Level 134 mmol/L (136-145) 135 mmol/L (136-145) Potassium Level 3.5 mmol/L (3.5-5.1) 3.7 mmol/L (3.5-5.1) Chloride Level 98 mmol/L (98-107) 97 mmol/L (98-107) Carbon Dioxide Level 24 mmol/L (21-32) 29 mmol/L (21-32) Anion Gap 12 (6-14) 9 (6-14) Blood Urea Nitrogen 14 mg/dL (8-26) 17 mg/dL (8-26) Creatinine 1.1 mg/dL (0.7-1.3) 1.1 mg/dL (0.7-1.3) Estimated GFR (Cockcroft-Gault) 69.8 69.8 BUN/Creatinine Ratio 13 (6-20) 15 (6-20) Glucose Level 120 mg/dL (70-99) 109 mg/dL (70-99) Calcium Level 8.5 mg/dL (8.5-10.1) 8.8 mg/dL (8.5-10.1) Total Bilirubin 0.6 mg/dL (0.2-1.0) 0.8 mg/dL (0.2-1.0) Aspartate Amino Transf (AST/SGOT) 163 U/L (15-37) 137 U/L (15-37) Alanine Aminotransferase (ALT/SGPT) 116 U/L (16-63) 146 U/L (16-63) Alkaline Phosphatase 95 U/L (46-116) 94 U/L (46-116) UB-Vqh-S-Type Natriuretic Peptide 192 pg/mL (0-124) Total Protein 6.6 g/dL (6.4-8.2) 7.1 g/dL (6.4-8.2) Albumin 2.7 g/dL (3.4-5.0) 2.8 g/dL (3.4-5.0) Albumin/Globulin Ratio 0.7 (1.0-1.7) 0.7 (1.0-1.7) Triglycerides Level 85 mg/dL (0-150) Cholesterol Level 76 mg/dL (0-200) LDL Cholesterol, Calculated 33 mg/dL (0-100) VLDL Cholesterol, Calculated 17 mg/dL (0-40) Non-HDL Cholesterol Calculated 50 mg/dL (0-129) HDL Cholesterol 26 mg/dL (40-60) Cholesterol/HDL Ratio 2.9 Thyroid Stimulating Hormone (TSH) 1.813 uIU/mL (0.358-3.74) Lactate Dehydrogenase 681 U/L (85-227) C-Reactive Protein, Quantitative 208.1 mg/L (0-3.3) Laboratory Tests Test 10/12/19 03:40 White Blood Count 5.9 x10^3/uL (4.0-11.0) Red Blood Count 4.10 x10^6/uL (4.30-5.70) Hemoglobin 13.0 g/dL (13.0-17.5) Hematocrit 37.1 % (39.0-53.0) Mean Corpuscular Volume 91 fL (79-100) Mean Corpuscular Hemoglobin 32 pg (25-35) Mean Corpuscular Hemoglobin Concent 35 g/dL (31-37) Red Cell Distribution Width 13.5 % (11.5-14.5) Platelet Count 302 x10^3/uL (140-400) Neutrophils (%) (Auto) 81 % (31-73) Lymphocytes (%) (Auto) 15 % (24-48) Monocytes (%) (Auto) 3 % (0-9) Eosinophils (%) (Auto) 0 % (0-3) Basophils (%) (Auto) 0 % (0-3) Neutrophils # (Auto) 4.8 x10^3/uL (1.8-7.7) Lymphocytes # (Auto) 0.9 x10^3/uL (1.0-4.8) Monocytes # (Auto) 0.2 x10^3/uL (0.0-1.1) Eosinophils # (Auto) 0.0 x10^3/uL (0.0-0.7) Basophils # (Auto) 0.0 x10^3/uL (0.0-0.2) Sodium Level 135 mmol/L (136-145) Potassium Level 3.7 mmol/L (3.5-5.1) Chloride Level 97 mmol/L (98-107) Carbon Dioxide Level 29 mmol/L (21-32) Anion Gap 9 (6-14) Blood Urea Nitrogen 17 mg/dL (8-26) Creatinine 1.1 mg/dL (0.7-1.3) Estimated GFR (Cockcroft-Gault) 69.8 BUN/Creatinine Ratio 15 (6-20) Glucose Level 109 mg/dL (70-99) Calcium Level 8.8 mg/dL (8.5-10.1) Total Bilirubin 0.8 mg/dL (0.2-1.0) Aspartate Amino Transf (AST/SGOT) 137 U/L (15-37) Alanine Aminotransferase (ALT/SGPT) 146 U/L (16-63) Alkaline Phosphatase 94 U/L (46-116) Lactate Dehydrogenase 681 U/L (85-227) C-Reactive Protein, Quantitative 208.1 mg/L (0-3.3) Total Protein 7.1 g/dL (6.4-8.2) Albumin 2.8 g/dL (3.4-5.0) Albumin/Globulin Ratio 0.7 (1.0-1.7) Microbiology 10/09/19 Blood Culture - Preliminary, Resulted NO GROWTH AFTER 2 DAYS Medications Current Medications Acetaminophen (Tylenol) 650 mg 1X ONCE PO ; Start 10/09/19 at 08:15; Stop 10/09/19 at 08:16; Status Cancel Acetaminophen (Tylenol) 1,000 mg 1X ONCE PO ; Start 10/09/19 at 08:15; Stop 10/09/19 at 08:16; Status Cancel Acetaminophen (Tylenol) 650 mg 1X ONCE PO Last administered on 10/09/19at 08:07; Start 10/09/19 at 08:15; Stop 10/09/19 at 08:16; Status DC Piperacillin Sod/ Tazobactam Sod 3.375 gm/Sodium Chloride 50 ml @ 100 mls/hr 1X ONCE IV Last administered on 10/09/19at 09:56; Start 10/09/19 at 09:30; Stop 10/09/19 at 09:59; Status DC Enoxaparin Sodium (Lovenox 40mg Syringe) 40 mg BID SQ Last administered on 10/12/19at 09:38; Start 10/09/19 at 21:00 Pantoprazole Sodium (Protonix) 40 mg DAILYAC PO ; Start 10/10/19 at 07:30; Stop 10/09/19 at 12:32; Status DC Famotidine (Pepcid) 20 mg BID PO Last administered on 10/12/19at 09:38; Start 10/09/19 at 21:00 Azithromycin 500 mg/Sodium Chloride 250 ml @ 250 mls/hr Q24H IV Last administered on 10/11/19at 14:29; Start 10/09/19 at 14:00; Stop 10/12/19 at 09:02; Status DC Piperacillin Sod/ Tazobactam Sod 3.375 gm/Sodium Chloride 50 ml @ 100 mls/hr Q6HRS IV Last administered on 10/12/19at 06:05; Start 10/09/19 at 18:00; Stop 10/12/19 at 09:01; Status DC Zinc Sulfate (Orazinc) 220 mg DAILY PO Last administered on 10/12/19at 09:38; Start 10/10/19 at 09:00 Guaifenesin (Robitussin Dm) 10 ml PRN Q6HRS PRN PO COUGH Last administered on 10/10/19at 10:22; Start 10/09/19 at 13:30 Ondansetron HCl (Zofran) 4 mg PRN Q4HRS PRN IVP NAUSEA/VOMITING; Start 10/09/19 at 13:30 Acetaminophen (Tylenol) 1,000 mg PRN Q6HRS PRN PO MILD PAIN / TEMP > 100.3'F Last administered on 10/11/19 19:06; Start 10/09/19 at 13:45 Zolpidem Tartrate (Ambien) 5 mg PRN QHS PRN PO INSOMNIA Last administered on 10/10/19 22:00; Start 10/09/19 at 20:00; Stop 10/11/19 at 13:32; Status DC Throat Lozenges (Cepacol Sore Throat Lozenge) 1 chris PRN Q1HR PRN PO SORE THROAT Last administered on 10/10/19 08:04; Start 10/10/19 at 03:30 Non-Formulary Medication 1 ea/ Sodium Chloride 250 ml @ 500 mls/hr 1X ONCE IV Last administered on 10/10/19at 08:33; Start 10/10/19 at 09:00; Stop 10/10/19 at 09:29; Status DC Linezolid (Zyvox) 600 mg BID PO Last administered on 10/12/19 09:38; Start 10/10/19 at 09:00 Non-Formulary Medication 1 ea/ Sodium Chloride 250 ml @ 500 mls/hr Q24H IV Last administered on 10/12/19 09:38; Start 10/11/19 at 09:00; Stop 10/14/19 at 09:29 Potassium Chloride (Klor-Con) 40 meq 1X ONCE PO Last administered on 10/10/19at 12:11; Start 10/10/19 at 12:45; Stop 10/10/19 at 12:46; Status DC Lactobacillus Rhamnosus (Culturelle) 1 cap BID PO Last administered on 10/12/19at 09:38; Start 10/11/19 at 12:30 Lactobacillus Rhamnosus (Culturelle) 1 cap BID PO ; Start 10/11/19 at 21:00; Status UNV Temazepam (Restoril) 15 mg PRN QHS PRN PO INSOMNIA Last administered on 6/15/20at 20:11; Start 10/11/19 at 13:45 Alprazolam (Xanax) 0.5 mg PRN Q8HRS PRN PO ANXIETY / AGITATION Last administered on 10/11/19at 18:15; Start 10/11/19 at 17:30 Active Scripts Active Proair Hfa Inhaler (Albuterol Sulfate) 8.5 Gm Hfa.aer.ad 2 Puff IH PRN Q4-6HRS PRN 21 Days Mucinex Dm Er 600-30 Mg Tablet (Guaifenesin/Dextromethorphan) 1 Each Tab.er.12h 1 Tab PO PRN BID PRN 14 Days Tylenol With Codeine #3 Tablet (Acetaminophen/Codeine Phosphate) 1 Each Tablet 1 Tab PO PRN Q8HRS PRN Zithromax (Azithromycin) 500 Mg Tablet 1 Tab PO DAILY Vitals/I & O Vital Sign - Last 24 Hours 10/11/19 10/11/19 10/11/19 10/11/19 11:00 14:01 16:30 18:00 Temp 99.9 98.6 99.9 98.6 Pulse 86 90 94 101 Resp 22 28 30 B/P (MAP) 148/76 (100) 137/74 (95) 166/82 (110) Pulse Ox 93 93 95 93 O2 Delivery Simple Mask NonRebreather Mask NonRebreather Mask NonRebreather Mask O2 Flow Rate 6.0 10.0 10.0 10.0 10/11/19 10/11/19 10/11/19 10/11/19 19:00 20:00 20:00 21:00 Temp 101.4 101.4 Pulse 96 90 84 Resp 30 25 B/P (MAP) 121/64 (83) Pulse Ox 95 95 95 O2 Delivery NonRebreather Mask NonRebreather Mask Mask NonRebreather Mask O2 Flow Rate 10.0 10.0 10.0 10.0 10/11/19 10/11/19 10/12/19 10/12/19 22:00 22:58 00:00 00:00 Temp 98.2 98.2 Pulse 83 83 84 Resp 25 22 25 B/P (MAP) 133/68 (89) Pulse Ox 97 97 97 O2 Delivery NonRebreather Mask NonRebreather Mask Mask NonRebreather Mask O2 Flow Rate 10.0 10.0 15.0 15.0 10/12/19 10/12/19 10/12/19 10/12/19 01:00 02:00 02:46 04:00 Temp 97.8 97.8 Pulse 84 82 93 90 Resp 22 B/P (MAP) 140/72 (94) Pulse Ox 96 98 99 98 O2 Delivery NonRebreather Mask NonRebreather Mask NonRebreather Mask NonRebreather Mask O2 Flow Rate 15.0 15.0 15.0 15.0 10/12/19 10/12/19 10/12/19 04:00 05:00 06:09 Temp 98.8 98.8 Pulse 100 90 Resp B/P (MAP) 134/70 (91) Pulse Ox 98 98 O2 Delivery Mask NonRebreather Mask NonRebreather Mask O2 Flow Rate 15.0 15.0 15.0 Intake and Output 10/11/19 10/11/19 10/12/19 15:00 23:00 07:00 Intake Total 500 ml 630 ml 680 ml Output Total 1100 ml Balance -600 ml 630 ml 680 ml ARNALDO GAMEZ MD Oct 12, 2019 09:52
--- NOTE | 2019-10-12 10:25 | PDOC ---
Objective: Objective: D/w nurse - sats in 70s w/o mask (which he removes sometimes) - has been s leeping this morning. 5 stools charted. Vital Signs: Vital Signs Date Time Temp Pulse Resp B/P (MAP) Pulse Ox O2 Delivery O2 Flow Rate FiO2 10/12/19 06:09 98.8 90 22 134/70 (91) 98 NonRebreather Mask 15.0 98.8 Labs: Laboratory Tests Test 10/12/19 03:40 White Blood Count 5.9 x10^3/uL Red Blood Count 4.10 x10^6/uL Hemoglobin 13.0 g/dL Hematocrit 37.1 % Mean Corpuscular Volume 91 fL Mean Corpuscular Hemoglobin 32 pg Mean Corpuscular Hemoglobin Concent 35 g/dL Red Cell Distribution Width 13.5 % Platelet Count 302 x10^3/uL Neutrophils (%) (Auto) 81 % Lymphocytes (%) (Auto) 15 % Monocytes (%) (Auto) 3 % Eosinophils (%) (Auto) 0 % Basophils (%) (Auto) 0 % Neutrophils # (Auto) 4.8 x10^3/uL Lymphocytes # (Auto) 0.9 x10^3/uL Monocytes # (Auto) 0.2 x10^3/uL Eosinophils # (Auto) 0.0 x10^3/uL Basophils # (Auto) 0.0 x10^3/uL Sodium Level 135 mmol/L Potassium Level 3.7 mmol/L Chloride Level 97 mmol/L Carbon Dioxide Level 29 mmol/L Anion Gap 9 Blood Urea Nitrogen 17 mg/dL Creatinine 1.1 mg/dL Estimated GFR (Cockcroft-Gault) 69.8 BUN/Creatinine Ratio 15 Glucose Level 109 mg/dL Calcium Level 8.8 mg/dL Total Bilirubin 0.8 mg/dL Aspartate Amino Transf (AST/SGOT) 137 U/L Alanine Aminotransferase (ALT/SGPT) 146 U/L Alkaline Phosphatase 94 U/L Lactate Dehydrogenase 681 U/L C-Reactive Protein, Quantitative 208.1 mg/L Total Protein 7.1 g/dL Albumin 2.8 g/dL Albumin/Globulin Ratio 0.7 PE: GEN: in COVID isolation in ICU - asleep in chair LUNGS: nonrebreather HEART: borderline tachycardic ABD: non-distended NEURO/PSYCH: asleep A/P: +COVID-19 resp failure Elevated AST and ALT - fluctuating Loose stools -- Continue support. Can check stool studies if indicated. Justicifation of Admission Dx: Justifications for Admission: Justification of Admission Dx: Yes Respiratory Failure: Severe Resp Distress JAVIER VERA Oct 12, 2019 10:25
--- NOTE | 2019-10-12 12:21 | PDOC ---
PULMONARY PROGRESS NOTES Subjective no soa still on 10 litres Vitals Vital Signs Date Time Temp Pulse Resp B/P (MAP) Pulse Ox O2 Delivery O2 Flow Rate FiO2 10/12/19 06:09 98.8 90 22 134/70 (91) 98 NonRebreather Mask 15.0 98.8 Comments on 02 appears comfortable no resp distress less cough no paradoxical abd motion no audible wheezing alert and orientated no rash no edema General: Alert Labs Laboratory Tests Test 10/11/19 03:25 10/12/19 03:40 White Blood Count 6.0 x10^3/uL (4.0-11.0) 5.9 x10^3/uL (4.0-11.0) Red Blood Count 4.22 x10^6/uL (4.30-5.70) 4.10 x10^6/uL (4.30-5.70) Hemoglobin 13.3 g/dL (13.0-17.5) 13.0 g/dL (13.0-17.5) Hematocrit 38.3 % (39.0-53.0) 37.1 % (39.0-53.0) Mean Corpuscular Volume 91 fL (79-100) 91 fL (79-100) Mean Corpuscular Hemoglobin 32 pg (25-35) 32 pg (25-35) Mean Corpuscular Hemoglobin Concent 35 g/dL (31-37) 35 g/dL (31-37) Red Cell Distribution Width 13.1 % (11.5-14.5) 13.5 % (11.5-14.5) Platelet Count 245 x10^3/uL (140-400) 302 x10^3/uL (140-400) Neutrophils (%) (Auto) 84 % (31-73) 81 % (31-73) Lymphocytes (%) (Auto) 13 % (24-48) 15 % (24-48) Monocytes (%) (Auto) 3 % (0-9) 3 % (0-9) Eosinophils (%) (Auto) 0 % (0-3) 0 % (0-3) Basophils (%) (Auto) 0 % (0-3) 0 % (0-3) Neutrophils # (Auto) 5.0 x10^3/uL (1.8-7.7) 4.8 x10^3/uL (1.8-7.7) Lymphocytes # (Auto) 0.8 x10^3/uL (1.0-4.8) 0.9 x10^3/uL (1.0-4.8) Monocytes # (Auto) 0.2 x10^3/uL (0.0-1.1) 0.2 x10^3/uL (0.0-1.1) Eosinophils # (Auto) 0.0 x10^3/uL (0.0-0.7) 0.0 x10^3/uL (0.0-0.7) Basophils # (Auto) 0.0 x10^3/uL (0.0-0.2) 0.0 x10^3/uL (0.0-0.2) Sodium Level 134 mmol/L (136-145) 135 mmol/L (136-145) Potassium Level 3.5 mmol/L (3.5-5.1) 3.7 mmol/L (3.5-5.1) Chloride Level 98 mmol/L (98-107) 97 mmol/L (98-107) Carbon Dioxide Level 24 mmol/L (21-32) 29 mmol/L (21-32) Anion Gap 12 (6-14) 9 (6-14) Blood Urea Nitrogen 14 mg/dL (8-26) 17 mg/dL (8-26) Creatinine 1.1 mg/dL (0.7-1.3) 1.1 mg/dL (0.7-1.3) Estimated GFR (Cockcroft-Gault) 69.8 69.8 BUN/Creatinine Ratio 13 (6-20) 15 (6-20) Glucose Level 120 mg/dL (70-99) 109 mg/dL (70-99) Calcium Level 8.5 mg/dL (8.5-10.1) 8.8 mg/dL (8.5-10.1) Total Bilirubin 0.6 mg/dL (0.2-1.0) 0.8 mg/dL (0.2-1.0) Aspartate Amino Transf (AST/SGOT) 163 U/L (15-37) 137 U/L (15-37) Alanine Aminotransferase (ALT/SGPT) 116 U/L (16-63) 146 U/L (16-63) Alkaline Phosphatase 95 U/L (46-116) 94 U/L (46-116) DD-Ymf-V-Type Natriuretic Peptide 192 pg/mL (0-124) Total Protein 6.6 g/dL (6.4-8.2) 7.1 g/dL (6.4-8.2) Albumin 2.7 g/dL (3.4-5.0) 2.8 g/dL (3.4-5.0) Albumin/Globulin Ratio 0.7 (1.0-1.7) 0.7 (1.0-1.7) Triglycerides Level 85 mg/dL (0-150) Cholesterol Level 76 mg/dL (0-200) LDL Cholesterol, Calculated 33 mg/dL (0-100) VLDL Cholesterol, Calculated 17 mg/dL (0-40) Non-HDL Cholesterol Calculated 50 mg/dL (0-129) HDL Cholesterol 26 mg/dL (40-60) Cholesterol/HDL Ratio 2.9 Thyroid Stimulating Hormone (TSH) 1.813 uIU/mL (0.358-3.74) Lactate Dehydrogenase 681 U/L (85-227) C-Reactive Protein, Quantitative 208.1 mg/L (0-3.3) Laboratory Tests Test 10/12/19 03:40 White Blood Count 5.9 x10^3/uL (4.0-11.0) Red Blood Count 4.10 x10^6/uL (4.30-5.70) Hemoglobin 13.0 g/dL (13.0-17.5) Hematocrit 37.1 % (39.0-53.0) Mean Corpuscular Volume 91 fL (79-100) Mean Corpuscular Hemoglobin 32 pg (25-35) Mean Corpuscular Hemoglobin Concent 35 g/dL (31-37) Red Cell Distribution Width 13.5 % (11.5-14.5) Platelet Count 302 x10^3/uL (140-400) Neutrophils (%) (Auto) 81 % (31-73) Lymphocytes (%) (Auto) 15 % (24-48) Monocytes (%) (Auto) 3 % (0-9) Eosinophils (%) (Auto) 0 % (0-3) Basophils (%) (Auto) 0 % (0-3) Neutrophils # (Auto) 4.8 x10^3/uL (1.8-7.7) Lymphocytes # (Auto) 0.9 x10^3/uL (1.0-4.8) Monocytes # (Auto) 0.2 x10^3/uL (0.0-1.1) Eosinophils # (Auto) 0.0 x10^3/uL (0.0-0.7) Basophils # (Auto) 0.0 x10^3/uL (0.0-0.2) Sodium Level 135 mmol/L (136-145) Potassium Level 3.7 mmol/L (3.5-5.1) Chloride Level 97 mmol/L (98-107) Carbon Dioxide Level 29 mmol/L (21-32) Anion Gap 9 (6-14) Blood Urea Nitrogen 17 mg/dL (8-26) Creatinine 1.1 mg/dL (0.7-1.3) Estimated GFR (Cockcroft-Gault) 69.8 BUN/Creatinine Ratio 15 (6-20) Glucose Level 109 mg/dL (70-99) Calcium Level 8.8 mg/dL (8.5-10.1) Total Bilirubin 0.8 mg/dL (0.2-1.0) Aspartate Amino Transf (AST/SGOT) 137 U/L (15-37) Alanine Aminotransferase (ALT/SGPT) 146 U/L (16-63) Alkaline Phosphatase 94 U/L (46-116) Lactate Dehydrogenase 681 U/L (85-227) C-Reactive Protein, Quantitative 208.1 mg/L (0-3.3) Total Protein 7.1 g/dL (6.4-8.2) Albumin 2.8 g/dL (3.4-5.0) Albumin/Globulin Ratio 0.7 (1.0-1.7) Medications Active Scripts Medications Dose Route/Sig Max Daily Dose Days Date Category Proair Hfa Inhaler (Albuterol Sulfate) 8.5 Gm Hfa.aer.ad 2 Puff IH PRN Q4-6HRS PRN 21 10/06/19 Rx Mucinex Dm Er 600-30 Mg Tablet (Guaifenesin/Dextromethorphan) 1 Each Tab.er.12h 1 Tab PO PRN BID PRN 14 10/06/19 Rx Tylenol With Codeine #3 Tablet (Acetaminophen/Codeine Phosphate) 1 Each Tablet 1 Tab PO PRN Q8HRS PRN 10/06/19 Rx Zithromax (Azithromycin) 500 Mg Tablet 1 Tab PO DAILY 10/02/19 Rx Comments cxr reviewed Impression . IMPRESSION: 1. COVID-19 pneumonia with worsening hypoxia and ALI 2. Abnormal chest x-ray c/w COVID-19 pneumonia 3. Mildly elevated AST and ALT, suspect secondary to COVID-19. 4. Leukopenia. 5. Mild hyponatremia. Plan . PLAN AND RECOMMENDATIONS: 1. Titrate FiO2 to keep O2 saturation more than 94%/ high flow O2 2. Agree with antibiotic Zosyn and azithromycin. zyvox added 3. aggressive DVT prophylaxis. 4. Lovenox 40 mg subcutaneous b.i.d. 5. ID Rec. On Remdesivir. Received Plasma 10/09 .f/u Inflammatory markers 6. Monitor respiratory status very closely. 7. Protonix for stress ulcer prophylaxis. 8. Discussed with BEN Herrera MD Oct 12, 2019 12:21
--- NOTE | 2019-10-12 12:45 | PDOC ---
CARDIO Progress Notes Date and Time Date of Service 10/12/19 Time of Evaluation 0910 Subjective Subjective: No Chest Pain, No Palpitations, No Dizziness, Other (Still SOA) Vitals Vitals Vital Signs Date Time Temp Pulse Resp B/P (MAP) Pulse Ox O2 Delivery O2 Flow Rate FiO2 10/12/19 06:09 98.8 90 22 134/70 (91) 98 NonRebreather Mask 15.0 98.8 Weight Weight [ ] Input and Output Intake and Output Intake and Output 10/12/19 07:00 Intake Total 1810 ml Output Total 1100 ml Balance 710 ml Intake Oral 1760 ml IV Total 50 ml Output Urine Total 600 ml Urine/Stool Mix 500 ml # Voids 7 # Bowel Movements 5 Laboratory Labs Laboratory Tests Test 10/12/19 03:40 White Blood Count 5.9 x10^3/uL (4.0-11.0) Red Blood Count 4.10 x10^6/uL (4.30-5.70) Hemoglobin 13.0 g/dL (13.0-17.5) Hematocrit 37.1 % (39.0-53.0) Mean Corpuscular Volume 91 fL (79-100) Mean Corpuscular Hemoglobin 32 pg (25-35) Mean Corpuscular Hemoglobin Concent 35 g/dL (31-37) Red Cell Distribution Width 13.5 % (11.5-14.5) Platelet Count 302 x10^3/uL (140-400) Neutrophils (%) (Auto) 81 % (31-73) Lymphocytes (%) (Auto) 15 % (24-48) Monocytes (%) (Auto) 3 % (0-9) Eosinophils (%) (Auto) 0 % (0-3) Basophils (%) (Auto) 0 % (0-3) Neutrophils # (Auto) 4.8 x10^3/uL (1.8-7.7) Lymphocytes # (Auto) 0.9 x10^3/uL (1.0-4.8) Monocytes # (Auto) 0.2 x10^3/uL (0.0-1.1) Eosinophils # (Auto) 0.0 x10^3/uL (0.0-0.7) Basophils # (Auto) 0.0 x10^3/uL (0.0-0.2) Sodium Level 135 mmol/L (136-145) Potassium Level 3.7 mmol/L (3.5-5.1) Chloride Level 97 mmol/L (98-107) Carbon Dioxide Level 29 mmol/L (21-32) Anion Gap 9 (6-14) Blood Urea Nitrogen 17 mg/dL (8-26) Creatinine 1.1 mg/dL (0.7-1.3) Estimated GFR (Cockcroft-Gault) 69.8 BUN/Creatinine Ratio 15 (6-20) Glucose Level 109 mg/dL (70-99) Calcium Level 8.8 mg/dL (8.5-10.1) Total Bilirubin 0.8 mg/dL (0.2-1.0) Aspartate Amino Transf (AST/SGOT) 137 U/L (15-37) Alanine Aminotransferase (ALT/SGPT) 146 U/L (16-63) Alkaline Phosphatase 94 U/L (46-116) Lactate Dehydrogenase 681 U/L (85-227) C-Reactive Protein, Quantitative 208.1 mg/L (0-3.3) Total Protein 7.1 g/dL (6.4-8.2) Albumin 2.8 g/dL (3.4-5.0) Albumin/Globulin Ratio 0.7 (1.0-1.7) Microbiology Micro Microbiology 10/09/19 Blood Culture - Preliminary, Resulted NO GROWTH AFTER 3 DAYS Physical Exam HEENT: Neck Supple W Full Motion Chest: Symmetric Heart: S1S2, RRR, no thrills, no rubs, no gallops, no murmurs Extremities: No Edema Neurology: alert, oriented, follow commands Assessment Assessment 1. Acute respiratory failure secondary to COVID PNA. COVID + 10/01. S/p plasma, Started on Remdesivir. Doubt overt HF based upon clinical presentation. NT Pro BNP 192 2. Fevers 3. Chest pain, atypical; AMI ruled out. Most probably secondary to above. 4. Elevated LFTs Recommendations Ongoing lung optimization and treatment of COVID as per pulm and ID Plan for outpatient echocardiogram Supportive care from a CV standpoint Justicifation of Admission Dx: Justifications for Admission: Justification of Admission Dx: Yes Respiratory Failure: Severe Resp Distress DARNELL PAREDES APRN Oct 12, 2019 12:45
[2019-10-12] MEDS ORDERED: ENALAPRILAT 1.25 MG/ML VIAL. IVP PRN (21:15)
[2019-10-13] VITALS (23 sets, daily range): BP systolic 107–172; BP diastolic 59–102
[2019-10-13] MEDS: ENOXAPARIN 40 MG/0.4 ML SYRINGE. SQ SCH ×3 (00:06→22:15)
[2019-10-13] MEDS: TEMAZEPAM 15 MG CAPSULE PO PRN ×2 (00:06→22:15)
[2019-10-13] MEDS: ALPRAZolam 0.5 MG TABLET PO PRN ×2 (00:06→22:15)
[2019-10-13] MEDS: LINEZOLID 600 MG TABLET PO SCH ×3 (00:07→22:15)
[2019-10-13] MEDS: FAMOTIDINE 20 MG TABLET. PO SCH ×3 (00:07→22:15)
[2019-10-13] MEDS: LACTOBACILLUS RHAMNOSUS GG 1 CAPSULE. PO SCH ×3 (00:07→22:15)
[2019-10-13 04:13] LABS: BASO % 0 % (0-3); EOS % 0 % (0-3); HEMATOCRIT 37.4 % (39.0-53.0); LYMPH # 0.9 x10^3/uL (1.0-4.8); LYMPH % 18 % (24-48); MEAN CORPUSCULAR HEMOGLOBIN 32 pg (25-35); MEAN CORPUSCULAR HGB CONC 35 g/dL (31-37); MEAN CORPUSCULAR VOLUME 91 fL (79-100); MONO # 0.3 x10^3/uL (0.0-1.1); MONO % 6 % (0-9); NEUT # 3.7 x10^3/uL (1.8-7.7); NEUT % 76 % (31-73); PLATELET COUNT 324 x10^3/uL (140-400); RED BLOOD COUNT 4.11 x10^6/uL (4.30-5.70); RED CELL DISTRIBUTION WIDTH 13.3 % (11.5-14.5); WHITE BLOOD COUNT 4.8 x10^3/uL (4.0-11.0)
[2019-10-13 04:29] LABS: ALBUMIN 2.6 g/dL (3.4-5.0); ALBUMIN/GLOBULIN RATIO 0.6 (1.0-1.7); C-REACTIVE PROTEIN 190.1 mg/L (0-3.3); CALCIUM 8.3 mg/dL (8.5-10.1); GFR 77.9; POTASSIUM 3.5 mmol/L (3.5-5.1); TOTAL BILIRUBIN 0.8 mg/dL (0.2-1.0); TOTAL PROTEIN 6.7 g/dL (6.4-8.2)
--- NOTE | 2019-10-13 07:23 | PDOC ---
Infectious Disease Note Subjective Subjective Even less fever, cough and loose stool. Rare Nausea. Some SOA No rash/dysuria ROS ROS o/w neg Vital Sign Vital Signs Vital Signs Date Time Temp Pulse Resp B/P (MAP) Pulse Ox O2 Delivery O2 Flow Rate FiO2 10/13/19 06:00 93 37 140/79 (99) 96 NonRebreather Mask 6.0 10/13/19 04:00 99.3 99.3 Physical Exam PHYSICAL EXAM CONSTITUTIONAL: He is a very pleasant gentleman. He is cooperative. He is in no mild distress. Sitting up in chair. On facemask. Looks a little tired still HEENT: Pupils are equal and reactive. He has normal conjunctivae. Oral cavity, pharynx is clear. NECK: Supple. Good range of motion. LUNGS: Has some mild crackles at the base. HEART: S1, S2. ABDOMEN: Soft, nontender, nondistended, positive bowel sounds. EXTREMITIES: Without clubbing or cyanosis. No gross edema. SKIN: Warm to touch without signs of rash. NEUROLOGIC: Nonfocal and pleasant. PSYCHIATRIC: Affect is appropriate Labs Lab Laboratory Tests Test 10/13/19 03:50 White Blood Count 4.8 x10^3/uL (4.0-11.0) Red Blood Count 4.11 x10^6/uL (4.30-5.70) Hemoglobin 13.0 g/dL (13.0-17.5) Hematocrit 37.4 % (39.0-53.0) Mean Corpuscular Volume 91 fL (79-100) Mean Corpuscular Hemoglobin 32 pg (25-35) Mean Corpuscular Hemoglobin Concent 35 g/dL (31-37) Red Cell Distribution Width 13.3 % (11.5-14.5) Platelet Count 324 x10^3/uL (140-400) Neutrophils (%) (Auto) 76 % (31-73) Lymphocytes (%) (Auto) 18 % (24-48) Monocytes (%) (Auto) 6 % (0-9) Eosinophils (%) (Auto) 0 % (0-3) Basophils (%) (Auto) 0 % (0-3) Neutrophils # (Auto) 3.7 x10^3/uL (1.8-7.7) Lymphocytes # (Auto) 0.9 x10^3/uL (1.0-4.8) Monocytes # (Auto) 0.3 x10^3/uL (0.0-1.1) Eosinophils # (Auto) 0.0 x10^3/uL (0.0-0.7) Basophils # (Auto) 0.0 x10^3/uL (0.0-0.2) Sodium Level 134 mmol/L (136-145) Potassium Level 3.5 mmol/L (3.5-5.1) Chloride Level 97 mmol/L (98-107) Carbon Dioxide Level 28 mmol/L (21-32) Anion Gap 9 (6-14) Blood Urea Nitrogen 15 mg/dL (8-26) Creatinine 1.0 mg/dL (0.7-1.3) Estimated GFR (Cockcroft-Gault) 77.9 BUN/Creatinine Ratio 15 (6-20) Glucose Level 109 mg/dL (70-99) Calcium Level 8.3 mg/dL (8.5-10.1) Total Bilirubin 0.8 mg/dL (0.2-1.0) Aspartate Amino Transf (AST/SGOT) 120 U/L (15-37) Alanine Aminotransferase (ALT/SGPT) 142 U/L (16-63) Alkaline Phosphatase 94 U/L (46-116) Lactate Dehydrogenase 660 U/L (85-227) C-Reactive Protein, Quantitative 190.1 mg/L (0-3.3) Total Protein 6.7 g/dL (6.4-8.2) Albumin 2.6 g/dL (3.4-5.0) Albumin/Globulin Ratio 0.6 (1.0-1.7) Micro Microbiology 10/09/19 Blood Culture - Preliminary, Resulted NO GROWTH AFTER 2 DAYS Objective Assessment COVID + on 10/01 s/p Plasma 10/09 and started Remdesivir also. LDH/CRP and LFTs better today Fever ? plasma vs infection - curve improving Acute hypoxic resp failure on 10 L facemask and stable Abnormal CXR Transaminitis Plan Plan of Care D/cont Zosyn and Azithromycin 10/11 Added Zyvox 10/10 Begin Remdesivir 10/09 F/u labs -LDH/CRP/CMP/CBC and cults Cont in ICU for monitoring D/w nursing JUANJOSE MENDOZA MD Oct 13, 2019 07:23
[2019-10-13 09:06] LABS: BASE EXCESS ABG 1 mmol/L (-3-3); HCO3 ABG 25 mmol/L (21-28); PCO2 ABG 40 mmHg (35-46); PO2 ABG 85 mmHg (75-108); SAT O2 ABG 96 % (92-99)
[2019-10-13 09:08] LABS: FIO2 ABG 100
--- NOTE | 2019-10-13 09:14 | PDOC ---
PROGRESS NOTES Chief Complaint Chief Complaint IMPRESSION Recurrent and worsening Covid-19 syndrome Respiratory failure Acute pneumonia Transaminase-itis leukopenia Diarrhea Sepsis Headache ID Rec. On Remdesivir. Received Plasma 10/09 .f/u Inflammatory markers IV SOLUMEDROL LOVENOX 40 MG SQ BID GI PROPHYLAXIS AM LABS 33 MIN CC TIME History of Present Illness History of Present Illness 10/11/2019 No acute events reported overnight, case discussed with nursing staff patient in no acute distress no complaints during my visit, continues to require no nrebreather mask noted to keep his oxygen saturation above 90%. Patient seems quite antsy and anxious of being in isolation, reassurance has been provided and the plan of care explained in detail 10/11/2019 Patient seen and examined He continues to require more and more oxygen Now on 100% nonrebreather Discussed with RN Chart reviewed 10/10/2019 Patient seen and examined He appears quite ill He is short of breath and hypoxic at 87% despite being on O2 per nasal cannula I called the pharmacy to order some convalescent plasma but they explained only certain doctors are allowed to order it I called Dr. Enciso, he was not sure how to get it either (but he did order the Remdesivir and we certainly appreciate his input and help) I notified Dr. Salguero of the situation, and he is going to call in order the convalescent plasma for us. Thank you Chart reviewed Discussed with RN I reviewed the chest x-ray myself it is showing worsening congestion bilaterally as well as borderline cardiomegaly I went ahead and consulted cardiology also Vitals Vitals Vital Signs Date Time Temp Pulse Resp B/P (MAP) Pulse Ox O2 Delivery O2 Flow Rate FiO2 10/13/19 06:00 93 37 140/79 (99) 96 NonRebreather Mask 6.0 10/13/19 04:00 99.3 99.3 Physical Exam Physical Exam CONSTITUTIONAL: He is a very pleasant gentleman. He is cooperative. He is in mild distress. Sitting up in chair. On face mask. Looks a little tired HEENT: Pupils are equal and reactive. He has normal conjunctivae. Oral cavity, pharynx is clear. NECK: Supple. Good range of motion. LUNGS: Has some mild crackles at the base. HEART: S1, S2. ABDOMEN: Soft, nontender, nondistended, positive bowel sounds. EXTREMITIES: Without clubbing or cyanosis. No gross edema. SKIN: Warm to touch without signs of rash. NEUROLOGIC: Nonfocal and pleasant. PSYCHIATRIC: Affect is appropriate General: Alert, Oriented X3, Cooperative, No acute distress Heart: Regular rate (SR/ST) Abdomen: Soft, No tenderness, No hepatosplenomegaly Extremities: No cyanosis, No edema Skin: No breakdown, No significant lesion Labs LABS PATIENT: TANYA LEDEZMA ACCOUNT: [id number] : 1965 LOCATION: ER AGE: 54 SEX: M EXAM STATUS: REG ER ORD. PHYSICIAN: ANNA MARIE CORNEJO DO REASON: cough, soa, COVID-19 POSITIVE PROCEDURE: CHEST AP ONLY EXAM: CHEST AP ONLY INDICATION: Reason: cough, soa, COVID-19 POSITIVE / Spl. Instructions: / History: . TECHNIQUE: Single view COMPARISON: 10/06/2019 chest x-ray FINDINGS: The heart size is normal. The great vessels appear unremarkable. There is no hilar or mediastinal mass. Lungs show bilateral reticulonodular opacities greater on the left than on the right, more apparent in the interval. There persists evidence of mild pulmonary vascular congestion centrally. There is no pleural effusion or pneumothorax. There are no significant osseous abnormalities. IMPRESSION: Evidence of worsening lung aeration with more conspicuous bilateral reticulonodular densities. This could reflect a combination of pulmonary vascular congestion and atypical infection. Correlate clinically. Electronically signed by: Funmilayo Rowe MD (10/09/2019 8:38 AM) [id number] DICTATED and SIGNED BY: FUNMILAYO ROWE MD Laboratory Tests Test 10/13/19 03:50 10/13/19 08:50 White Blood Count 4.8 x10^3/uL (4.0-11.0) Red Blood Count 4.11 x10^6/uL (4.30-5.70) Hemoglobin 13.0 g/dL (13.0-17.5) Hematocrit 37.4 % (39.0-53.0) Mean Corpuscular Volume 91 fL (79-100) Mean Corpuscular Hemoglobin 32 pg (25-35) Mean Corpuscular Hemoglobin Concent 35 g/dL (31-37) Red Cell Distribution Width 13.3 % (11.5-14.5) Platelet Count 324 x10^3/uL (140-400) Neutrophils (%) (Auto) 76 % (31-73) Lymphocytes (%) (Auto) 18 % (24-48) Monocytes (%) (Auto) 6 % (0-9) Eosinophils (%) (Auto) 0 % (0-3) Basophils (%) (Auto) 0 % (0-3) Neutrophils # (Auto) 3.7 x10^3/uL (1.8-7.7) Lymphocytes # (Auto) 0.9 x10^3/uL (1.0-4.8) Monocytes # (Auto) 0.3 x10^3/uL (0.0-1.1) Eosinophils # (Auto) 0.0 x10^3/uL (0.0-0.7) Basophils # (Auto) 0.0 x10^3/uL (0.0-0.2) Sodium Level 134 mmol/L (136-145) Potassium Level 3.5 mmol/L (3.5-5.1) Chloride Level 97 mmol/L (98-107) Carbon Dioxide Level 28 mmol/L (21-32) Anion Gap 9 (6-14) Blood Urea Nitrogen 15 mg/dL (8-26) Creatinine 1.0 mg/dL (0.7-1.3) Estimated GFR (Cockcroft-Gault) 77.9 BUN/Creatinine Ratio 15 (6-20) Glucose Level 109 mg/dL (70-99) Calcium Level 8.3 mg/dL (8.5-10.1) Total Bilirubin 0.8 mg/dL (0.2-1.0) Aspartate Amino Transf (AST/SGOT) 120 U/L (15-37) Alanine Aminotransferase (ALT/SGPT) 142 U/L (16-63) Alkaline Phosphatase 94 U/L (46-116) Lactate Dehydrogenase 660 U/L (85-227) C-Reactive Protein, Quantitative 190.1 mg/L (0-3.3) Total Protein 6.7 g/dL (6.4-8.2) Albumin 2.6 g/dL (3.4-5.0) Albumin/Globulin Ratio 0.6 (1.0-1.7) O2 Saturation 96 % (92-99) Arterial Blood pH 7.42 (7.35-7.45) Arterial Blood pCO2 at Patient Temp 40 mmHg (35-46) Arterial Blood pO2 at Patient Temp 85 mmHg (75-108) Arterial Blood HCO3 25 mmol/L (21-28) Arterial Blood Base Excess 1 mmol/L (-3-3) FiO2 100 Assessment and Plan Assessmemt and Plan Problems Medical Problems: (1) COVID-19 virus infection Status: Acute (2) Pneumonia Status: Acute Comment Review of Relevant I have reviewed the following items alyssa (where applicable) has been applied. Labs Laboratory Tests Test 10/12/19 03:40 10/13/19 03:50 10/13/19 08:50 White Blood Count 5.9 x10^3/uL (4.0-11.0) 4.8 x10^3/uL (4.0-11.0) Red Blood Count 4.10 x10^6/uL (4.30-5.70) 4.11 x10^6/uL (4.30-5.70) Hemoglobin 13.0 g/dL (13.0-17.5) 13.0 g/dL (13.0-17.5) Hematocrit 37.1 % (39.0-53.0) 37.4 % (39.0-53.0) Mean Corpuscular Volume 91 fL (79-100) 91 fL (79-100) Mean Corpuscular Hemoglobin 32 pg (25-35) 32 pg (25-35) Mean Corpuscular Hemoglobin Concent 35 g/dL (31-37) 35 g/dL (31-37) Red Cell Distribution Width 13.5 % (11.5-14.5) 13.3 % (11.5-14.5) Platelet Count 302 x10^3/uL (140-400) 324 x10^3/uL (140-400) Neutrophils (%) (Auto) 81 % (31-73) 76 % (31-73) Lymphocytes (%) (Auto) 15 % (24-48) 18 % (24-48) Monocytes (%) (Auto) 3 % (0-9) 6 % (0-9) Eosinophils (%) (Auto) 0 % (0-3) 0 % (0-3) Basophils (%) (Auto) 0 % (0-3) 0 % (0-3) Neutrophils # (Auto) 4.8 x10^3/uL (1.8-7.7) 3.7 x10^3/uL (1.8-7.7) Lymphocytes # (Auto) 0.9 x10^3/uL (1.0-4.8) 0.9 x10^3/uL (1.0-4.8) Monocytes # (Auto) 0.2 x10^3/uL (0.0-1.1) 0.3 x10^3/uL (0.0-1.1) Eosinophils # (Auto) 0.0 x10^3/uL (0.0-0.7) 0.0 x10^3/uL (0.0-0.7) Basophils # (Auto) 0.0 x10^3/uL (0.0-0.2) 0.0 x10^3/uL (0.0-0.2) Sodium Level 135 mmol/L (136-145) 134 mmol/L (136-145) Potassium Level 3.7 mmol/L (3.5-5.1) 3.5 mmol/L (3.5-5.1) Chloride Level 97 mmol/L (98-107) 97 mmol/L (98-107) Carbon Dioxide Level 29 mmol/L (21-32) 28 mmol/L (21-32) Anion Gap 9 (6-14) 9 (6-14) Blood Urea Nitrogen 17 mg/dL (8-26) 15 mg/dL (8-26) Creatinine 1.1 mg/dL (0.7-1.3) 1.0 mg/dL (0.7-1.3) Estimated GFR (Cockcroft-Gault) 69.8 77.9 BUN/Creatinine Ratio 15 (6-20) 15 (6-20) Glucose Level 109 mg/dL (70-99) 109 mg/dL (70-99) Calcium Level 8.8 mg/dL (8.5-10.1) 8.3 mg/dL (8.5-10.1) Total Bilirubin 0.8 mg/dL (0.2-1.0) 0.8 mg/dL (0.2-1.0) Aspartate Amino Transf (AST/SGOT) 137 U/L (15-37) 120 U/L (15-37) Alanine Aminotransferase (ALT/SGPT) 146 U/L (16-63) 142 U/L (16-63) Alkaline Phosphatase 94 U/L (46-116) 94 U/L (46-116) Lactate Dehydrogenase 681 U/L (85-227) 660 U/L (85-227) C-Reactive Protein, Quantitative 208.1 mg/L (0-3.3) 190.1 mg/L (0-3.3) Total Protein 7.1 g/dL (6.4-8.2) 6.7 g/dL (6.4-8.2) Albumin 2.8 g/dL (3.4-5.0) 2.6 g/dL (3.4-5.0) Albumin/Globulin Ratio 0.7 (1.0-1.7) 0.6 (1.0-1.7) O2 Saturation 96 % (92-99) Arterial Blood pH 7.42 (7.35-7.45) Arterial Blood pCO2 at Patient Temp 40 mmHg (35-46) Arterial Blood pO2 at Patient Temp 85 mmHg (75-108) Arterial Blood HCO3 25 mmol/L (21-28) Arterial Blood Base Excess 1 mmol/L (-3-3) FiO2 100 Laboratory Tests Test 10/13/19 03:50 10/13/19 08:50 White Blood Count 4.8 x10^3/uL (4.0-11.0) Red Blood Count 4.11 x10^6/uL (4.30-5.70) Hemoglobin 13.0 g/dL (13.0-17.5) Hematocrit 37.4 % (39.0-53.0) Mean Corpuscular Volume 91 fL (79-100) Mean Corpuscular Hemoglobin 32 pg (25-35) Mean Corpuscular Hemoglobin Concent 35 g/dL (31-37) Red Cell Distribution Width 13.3 % (11.5-14.5) Platelet Count 324 x10^3/uL (140-400) Neutrophils (%) (Auto) 76 % (31-73) Lymphocytes (%) (Auto) 18 % (24-48) Monocytes (%) (Auto) 6 % (0-9) Eosinophils (%) (Auto) 0 % (0-3) Basophils (%) (Auto) 0 % (0-3) Neutrophils # (Auto) 3.7 x10^3/uL (1.8-7.7) Lymphocytes # (Auto) 0.9 x10^3/uL (1.0-4.8) Monocytes # (Auto) 0.3 x10^3/uL (0.0-1.1) Eosinophils # (Auto) 0.0 x10^3/uL (0.0-0.7) Basophils # (Auto) 0.0 x10^3/uL (0.0-0.2) Sodium Level 134 mmol/L (136-145) Potassium Level 3.5 mmol/L (3.5-5.1) Chloride Level 97 mmol/L (98-107) Carbon Dioxide Level 28 mmol/L (21-32) Anion Gap 9 (6-14) Blood Urea Nitrogen 15 mg/dL (8-26) Creatinine 1.0 mg/dL (0.7-1.3) Estimated GFR (Cockcroft-Gault) 77.9 BUN/Creatinine Ratio 15 (6-20) Glucose Level 109 mg/dL (70-99) Calcium Level 8.3 mg/dL (8.5-10.1) Total Bilirubin 0.8 mg/dL (0.2-1.0) Aspartate Amino Transf (AST/SGOT) 120 U/L (15-37) Alanine Aminotransferase (ALT/SGPT) 142 U/L (16-63) Alkaline Phosphatase 94 U/L (46-116) Lactate Dehydrogenase 660 U/L (85-227) C-Reactive Protein, Quantitative 190.1 mg/L (0-3.3) Total Protein 6.7 g/dL (6.4-8.2) Albumin 2.6 g/dL (3.4-5.0) Albumin/Globulin Ratio 0.6 (1.0-1.7) O2 Saturation 96 % (92-99) Arterial Blood pH 7.42 (7.35-7.45) Arterial Blood pCO2 at Patient Temp 40 mmHg (35-46) Arterial Blood pO2 at Patient Temp 85 mmHg (75-108) Arterial Blood HCO3 25 mmol/L (21-28) Arterial Blood Base Excess 1 mmol/L (-3-3) FiO2 100 Microbiology 6/13/20 Blood Culture - Preliminary, Resulted NO GROWTH AFTER 3 DAYS Medications Current Medications Acetaminophen (Tylenol) 650 mg 1X ONCE PO ; Start 10/09/19 at 08:15; Stop 10/09/19 at 08:16; Status Cancel Acetaminophen (Tylenol) 1,000 mg 1X ONCE PO ; Start 10/09/19 at 08:15; Stop 10/09/19 at 08:16; Status Cancel Acetaminophen (Tylenol) 650 mg 1X ONCE PO Last administered on 10/09/19at 08:07; Start 10/09/19 at 08:15; Stop 10/09/19 at 08:16; Status DC Piperacillin Sod/ Tazobactam Sod 3.375 gm/Sodium Chloride 50 ml @ 100 mls/hr 1X ONCE IV Last administered on 10/09/19at 09:56; Start 10/09/19 at 09:30; Stop 10/09/19 at 09:59; Status DC Enoxaparin Sodium (Lovenox 40mg Syringe) 40 mg BID SQ Last administered on 10/13/19at 00:06; Start 10/09/19 at 21:00 Pantoprazole Sodium (Protonix) 40 mg DAILYAC PO ; Start 10/10/19 at 07:30; Stop 10/09/19 at 12:32; Status DC Famotidine (Pepcid) 20 mg BID PO Last administered on 10/13/19at 00:07; Start 10/09/19 at 21:00 Azithromycin 500 mg/Sodium Chloride 250 ml @ 250 mls/hr Q24H IV Last administered on 10/11/19at 14:29; Start 10/09/19 at 14:00; Stop 10/12/19 at 09:02; Status DC Piperacillin Sod/ Tazobactam Sod 3.375 gm/Sodium Chloride 50 ml @ 100 mls/hr Q6HRS IV Last administered on 10/12/19at 06:05; Start 10/09/19 at 18:00; Stop 10/12/19 at 09:01; Status DC Zinc Sulfate (Orazinc) 220 mg DAILY PO Last administered on 10/12/19at 09:38; Start 10/10/19 at 09:00 Guaifenesin (Robitussin Dm) 10 ml PRN Q6HRS PRN PO COUGH Last administered on 10/10/19at 10:22; Start 10/09/19 at 13:30 Ondansetron HCl (Zofran) 4 mg PRN Q4HRS PRN IVP NAUSEA/VOMITING; Start 10/09/19 at 13:30 Acetaminophen (Tylenol) 1,000 mg PRN Q6HRS PRN PO MILD PAIN / TEMP > 100.3'F Last administered on 10/11/19at 19:06; Start 10/09/19 at 13:45 Zolpidem Tartrate (Ambien) 5 mg PRN QHS PRN PO INSOMNIA Last administered on 10/10/19at 22:00; Start 10/09/19 at 20:00; Stop 10/11/19 at 13:32; Status DC Throat Lozenges (Cepacol Sore Throat Lozenge) 1 chris PRN Q1HR PRN PO SORE THROAT Last administered on 10/10/19at 08:04; Start 10/10/19 at 03:30 Non-Formulary Medication 1 ea/ Sodium Chloride 250 ml @ 500 mls/hr 1X ONCE IV Last administered on 10/10/19at 08:33; Start 10/10/19 at 09:00; Stop 10/10/19 at 09:29; Status DC Linezolid (Zyvox) 600 mg BID PO Last administered on 10/13/19at 00:07; Start 10/10/19 at 09:00 Non-Formulary Medication 1 ea/ Sodium Chloride 250 ml @ 500 mls/hr Q24H IV Last administered on 10/12/19at 09:38; Start 10/11/19 at 09:00; Stop 10/14/19 at 09:29 Potassium Chloride (Klor-Con) 40 meq 1X ONCE PO Last administered on 10/10/19at 12:11; Start 10/10/19 at 12:45; Stop 10/10/19 at 12:46; Status DC Lactobacillus Rhamnosus (Culturelle) 1 cap BID PO Last administered on 10/13/19at 00:07; Start 10/11/19 at 12:30 Lactobacillus Rhamnosus (Culturelle) 1 cap BID PO ; Start 10/11/19 at 21:00; Status UNV Temazepam (Restoril) 15 mg PRN QHS PRN PO INSOMNIA Last administered on 10/13/19at 00:06; Start 10/11/19 at 13:45 Alprazolam (Xanax) 0.5 mg PRN Q8HRS PRN PO ANXIETY / AGITATION Last administered on 10/13/19at 00:06; Start 10/11/19 at 17:30 Enalaprilat (Vasotec Inj) 1.25 mg PRN Q6HRS PRN IVP HYPERTENSION; Start 10/12/19 at 21:15 Active Scripts Active Proair Hfa Inhaler (Albuterol Sulfate) 8.5 Gm Hfa.aer.ad 2 Puff IH PRN Q4-6HRS PRN 21 Days Mucinex Dm Er 600-30 Mg Tablet (Guaifenesin/Dextromethorphan) 1 Each Tab.er.12h 1 Tab PO PRN BID PRN 14 Days Tylenol With Codeine #3 Tablet (Acetaminophen/Codeine Phosphate) 1 Each Tablet 1 Tab PO PRN Q8HRS PRN Zithromax (Azithromycin) 500 Mg Tablet 1 Tab PO DAILY Vitals/I & O Vital Sign - Last 24 Hours 10/12/19 10/12/19 10/12/19 10/12/19 10:00 12:00 13:00 14:00 Temp 98.1 98.1 Pulse 108 84 82 100 Resp 28 30 26 30 B/P (MAP) 128/71 (90) 138/77 (97) Pulse Ox 97 98 98 97 O2 Delivery NonRebreather Mask NonRebreather Mask NonRebreather Mask NonRebreather Mask O2 Flow Rate 10.0 10.0 10.0 10.0 10/12/19 10/12/19 10/12/19 10/12/19 15:00 16:00 17:00 20:00 Temp 99.3 99.3 Pulse 84 94 88 Resp 32 26 28 B/P (MAP) 142/78 (99) Pulse Ox 97 98 98 O2 Delivery NonRebreather Mask NonRebreather Mask NonRebreather Mask Non- Rebreather O2 Flow Rate 10.0 10.0 10.0 6.0 10/12/19 10/12/19 10/12/19 10/12/19 20:00 21:00 22:00 23:00 Temp 98.3 98.3 Pulse 94 100 102 100 Resp 41 46 49 28 B/P (MAP) 183/99 (127) 173/78 (109) 184/88 (120) 186/97 (126) Pulse Ox 98 96 96 98 O2 Delivery NonRebreather Mask NonRebreather Mask NonRebreather Mask NonRebreather Mask O2 Flow Rate 6.0 6.0 6.0 6.0 10/13/19 10/13/19 10/13/19 10/13/19 00:00 00:00 01:00 02:00 Temp 100.0 100.0 Pulse 99 96 96 Resp 28 28 28 B/P (MAP) 147/101 (116) 155/77 (103) 146/79 (101) Pulse Ox 97 96 97 O2 Delivery Non-Rebreather NonRebreather Mask NonRebreather Mask NonRebreather Mask O2 Flow Rate 6.0 6.0 6.0 6.0 10/13/19 10/13/19 10/13/19 10/13/19 04:00 04:00 05:00 06:00 Temp 99.3 99.3 Pulse 93 94 93 Resp 28 37 37 B/P (MAP) 172/86 (114) 133/78 (96) 140/79 (99) Pulse Ox 95 95 96 O2 Delivery Non-Rebreather NonRebreather Mask NonRebreather Mask NonRebreather Mask O2 Flow Rate 6.0 6.0 6.0 6.0 Intake and Output 10/12/19 10/12/19 10/13/19 15:00 23:00 07:00 Intake Total 480 ml 580 ml 1000 ml Balance 480 ml 580 ml 1000 ml BRENNAN WILLIS MD Oct 13, 2019 09:14
--- NOTE | 2019-10-13 10:15 | NUR ---
SS following up with discharge planning. SS reviewed pt chart and discussed with pt RN. Pt is from home with spouse and on non-rebreather mask. Pt is COVID19 positive. SS will continue to follow for discharge planning.
[2019-10-13] MEDS: NON FORMULARY ITEM 1 EA in IV NORMAL SALINE 250ML 250 ML IV SCH (10:26)
[2019-10-13] MEDS: ZINC SULFATE 220 MG CAPSULE. PO SCH (10:27)
--- NOTE | 2019-10-13 10:35 | PDOC ---
Objective: Objective: Staff mentions coughing a lot. Vital Signs: Vital Signs Date Time Temp Pulse Resp B/P (MAP) Pulse Ox O2 Delivery O2 Flow Rate FiO2 10/13/19 08:50 98 NonRebreather Mask 15.0 10/13/19 06:00 93 37 140/79 (99) 10/13/19 04:00 99.3 99.3 Labs: Laboratory Tests Test 10/13/19 03:50 10/13/19 08:50 White Blood Count 4.8 x10^3/uL Red Blood Count 4.11 x10^6/uL Hemoglobin 13.0 g/dL Hematocrit 37.4 % Mean Corpuscular Volume 91 fL Mean Corpuscular Hemoglobin 32 pg Mean Corpuscular Hemoglobin Concent 35 g/dL Red Cell Distribution Width 13.3 % Platelet Count 324 x10^3/uL Neutrophils (%) (Auto) 76 % Lymphocytes (%) (Auto) 18 % Monocytes (%) (Auto) 6 % Eosinophils (%) (Auto) 0 % Basophils (%) (Auto) 0 % Neutrophils # (Auto) 3.7 x10^3/uL Lymphocytes # (Auto) 0.9 x10^3/uL Monocytes # (Auto) 0.3 x10^3/uL Eosinophils # (Auto) 0.0 x10^3/uL Basophils # (Auto) 0.0 x10^3/uL Sodium Level 134 mmol/L Potassium Level 3.5 mmol/L Chloride Level 97 mmol/L Carbon Dioxide Level 28 mmol/L Anion Gap 9 Blood Urea Nitrogen 15 mg/dL Creatinine 1.0 mg/dL Estimated GFR (Cockcroft-Gault) 77.9 BUN/Creatinine Ratio 15 Glucose Level 109 mg/dL Calcium Level 8.3 mg/dL Total Bilirubin 0.8 mg/dL Aspartate Amino Transf (AST/SGOT) 120 U/L Alanine Aminotransferase (ALT/SGPT) 142 U/L Alkaline Phosphatase 94 U/L Lactate Dehydrogenase 660 U/L C-Reactive Protein, Quantitative 190.1 mg/L Total Protein 6.7 g/dL Albumin 2.6 g/dL Albumin/Globulin Ratio 0.6 O2 Saturation 96 % Arterial Blood pH 7.42 Arterial Blood pCO2 at Patient Temp 40 mmHg Arterial Blood pO2 at Patient Temp 85 mmHg Arterial Blood HCO3 25 mmol/L Arterial Blood Base Excess 1 mmol/L FiO2 100 PE: GEN: appears ill, in chair LUNGS: tachypneic, breathing mask HEART: tachycardic ABD: non-distended NEURO/PSYCH: awake A/P: +COVID-19 resp failure Elevated AST and ALT - better -- Continue support. Justicifation of Admission Dx: Justifications for Admission: Justification of Admission Dx: Yes Respiratory Failure: Severe Resp Distress JAVIER VERA Oct 13, 2019 10:35
--- NOTE | 2019-10-13 11:36 | PDOC ---
PULMONARY PROGRESS NOTES Subjective no soa on 50%VM Vitals Vital Signs Date Time Temp Pulse Resp B/P (MAP) Pulse Ox O2 Delivery O2 Flow Rate FiO2 10/13/19 08:50 98 NonRebreather Mask 15.0 10/13/19 06:00 93 37 140/79 (99) 10/13/19 04:00 99.3 99.3 Comments on 02 appears comfortable no resp distress less cough no paradoxical abd motion no audible wheezing alert and orientated no rash no edema General: Alert Labs Laboratory Tests Test 10/12/19 03:40 10/13/19 03:50 10/13/19 08:50 White Blood Count 5.9 x10^3/uL (4.0-11.0) 4.8 x10^3/uL (4.0-11.0) Red Blood Count 4.10 x10^6/uL (4.30-5.70) 4.11 x10^6/uL (4.30-5.70) Hemoglobin 13.0 g/dL (13.0-17.5) 13.0 g/dL (13.0-17.5) Hematocrit 37.1 % (39.0-53.0) 37.4 % (39.0-53.0) Mean Corpuscular Volume 91 fL (79-100) 91 fL (79-100) Mean Corpuscular Hemoglobin 32 pg (25-35) 32 pg (25-35) Mean Corpuscular Hemoglobin Concent 35 g/dL (31-37) 35 g/dL (31-37) Red Cell Distribution Width 13.5 % (11.5-14.5) 13.3 % (11.5-14.5) Platelet Count 302 x10^3/uL (140-400) 324 x10^3/uL (140-400) Neutrophils (%) (Auto) 81 % (31-73) 76 % (31-73) Lymphocytes (%) (Auto) 15 % (24-48) 18 % (24-48) Monocytes (%) (Auto) 3 % (0-9) 6 % (0-9) Eosinophils (%) (Auto) 0 % (0-3) 0 % (0-3) Basophils (%) (Auto) 0 % (0-3) 0 % (0-3) Neutrophils # (Auto) 4.8 x10^3/uL (1.8-7.7) 3.7 x10^3/uL (1.8-7.7) Lymphocytes # (Auto) 0.9 x10^3/uL (1.0-4.8) 0.9 x10^3/uL (1.0-4.8) Monocytes # (Auto) 0.2 x10^3/uL (0.0-1.1) 0.3 x10^3/uL (0.0-1.1) Eosinophils # (Auto) 0.0 x10^3/uL (0.0-0.7) 0.0 x10^3/uL (0.0-0.7) Basophils # (Auto) 0.0 x10^3/uL (0.0-0.2) 0.0 x10^3/uL (0.0-0.2) Sodium Level 135 mmol/L (136-145) 134 mmol/L (136-145) Potassium Level 3.7 mmol/L (3.5-5.1) 3.5 mmol/L (3.5-5.1) Chloride Level 97 mmol/L (98-107) 97 mmol/L (98-107) Carbon Dioxide Level 29 mmol/L (21-32) 28 mmol/L (21-32) Anion Gap 9 (6-14) 9 (6-14) Blood Urea Nitrogen 17 mg/dL (8-26) 15 mg/dL (8-26) Creatinine 1.1 mg/dL (0.7-1.3) 1.0 mg/dL (0.7-1.3) Estimated GFR (Cockcroft-Gault) 69.8 77.9 BUN/Creatinine Ratio 15 (6-20) 15 (6-20) Glucose Level 109 mg/dL (70-99) 109 mg/dL (70-99) Calcium Level 8.8 mg/dL (8.5-10.1) 8.3 mg/dL (8.5-10.1) Total Bilirubin 0.8 mg/dL (0.2-1.0) 0.8 mg/dL (0.2-1.0) Aspartate Amino Transf (AST/SGOT) 137 U/L (15-37) 120 U/L (15-37) Alanine Aminotransferase (ALT/SGPT) 146 U/L (16-63) 142 U/L (16-63) Alkaline Phosphatase 94 U/L (46-116) 94 U/L (46-116) Lactate Dehydrogenase 681 U/L (85-227) 660 U/L (85-227) C-Reactive Protein, Quantitative 208.1 mg/L (0-3.3) 190.1 mg/L (0-3.3) Total Protein 7.1 g/dL (6.4-8.2) 6.7 g/dL (6.4-8.2) Albumin 2.8 g/dL (3.4-5.0) 2.6 g/dL (3.4-5.0) Albumin/Globulin Ratio 0.7 (1.0-1.7) 0.6 (1.0-1.7) O2 Saturation 96 % (92-99) Arterial Blood pH 7.42 (7.35-7.45) Arterial Blood pCO2 at Patient Temp 40 mmHg (35-46) Arterial Blood pO2 at Patient Temp 85 mmHg (75-108) Arterial Blood HCO3 25 mmol/L (21-28) Arterial Blood Base Excess 1 mmol/L (-3-3) FiO2 100 Laboratory Tests Test 10/13/19 03:50 10/13/19 08:50 White Blood Count 4.8 x10^3/uL (4.0-11.0) Red Blood Count 4.11 x10^6/uL (4.30-5.70) Hemoglobin 13.0 g/dL (13.0-17.5) Hematocrit 37.4 % (39.0-53.0) Mean Corpuscular Volume 91 fL (79-100) Mean Corpuscular Hemoglobin 32 pg (25-35) Mean Corpuscular Hemoglobin Concent 35 g/dL (31-37) Red Cell Distribution Width 13.3 % (11.5-14.5) Platelet Count 324 x10^3/uL (140-400) Neutrophils (%) (Auto) 76 % (31-73) Lymphocytes (%) (Auto) 18 % (24-48) Monocytes (%) (Auto) 6 % (0-9) Eosinophils (%) (Auto) 0 % (0-3) Basophils (%) (Auto) 0 % (0-3) Neutrophils # (Auto) 3.7 x10^3/uL (1.8-7.7) Lymphocytes # (Auto) 0.9 x10^3/uL (1.0-4.8) Monocytes # (Auto) 0.3 x10^3/uL (0.0-1.1) Eosinophils # (Auto) 0.0 x10^3/uL (0.0-0.7) Basophils # (Auto) 0.0 x10^3/uL (0.0-0.2) Sodium Level 134 mmol/L (136-145) Potassium Level 3.5 mmol/L (3.5-5.1) Chloride Level 97 mmol/L (98-107) Carbon Dioxide Level 28 mmol/L (21-32) Anion Gap 9 (6-14) Blood Urea Nitrogen 15 mg/dL (8-26) Creatinine 1.0 mg/dL (0.7-1.3) Estimated GFR (Cockcroft-Gault) 77.9 BUN/Creatinine Ratio 15 (6-20) Glucose Level 109 mg/dL (70-99) Calcium Level 8.3 mg/dL (8.5-10.1) Total Bilirubin 0.8 mg/dL (0.2-1.0) Aspartate Amino Transf (AST/SGOT) 120 U/L (15-37) Alanine Aminotransferase (ALT/SGPT) 142 U/L (16-63) Alkaline Phosphatase 94 U/L (46-116) Lactate Dehydrogenase 660 U/L (85-227) C-Reactive Protein, Quantitative 190.1 mg/L (0-3.3) Total Protein 6.7 g/dL (6.4-8.2) Albumin 2.6 g/dL (3.4-5.0) Albumin/Globulin Ratio 0.6 (1.0-1.7) O2 Saturation 96 % (92-99) Arterial Blood pH 7.42 (7.35-7.45) Arterial Blood pCO2 at Patient Temp 40 mmHg (35-46) Arterial Blood pO2 at Patient Temp 85 mmHg (75-108) Arterial Blood HCO3 25 mmol/L (21-28) Arterial Blood Base Excess 1 mmol/L (-3-3) FiO2 100 Medications Active Scripts Medications Dose Route/Sig Max Daily Dose Days Date Category Proair Hfa Inhaler (Albuterol Sulfate) 8.5 Gm Hfa.aer.ad 2 Puff IH PRN Q4-6HRS PRN 21 10/06/19 Rx Mucinex Dm Er 600-30 Mg Tablet (Guaifenesin/Dextromethorphan) 1 Each Tab.er.12h 1 Tab PO PRN BID PRN 14 10/06/19 Rx Tylenol With Codeine #3 Tablet (Acetaminophen/Codeine Phosphate) 1 Each Tablet 1 Tab PO PRN Q8HRS PRN 10/06/19 Rx Zithromax (Azithromycin) 500 Mg Tablet 1 Tab PO DAILY 10/02/19 Rx Comments cxr reviewed Impression . IMPRESSION: 1. COVID-19 pneumonia with worsening hypoxia and ALI 2. Abnormal chest x-ray c/w COVID-19 pneumonia 3. Mildly elevated AST and ALT, suspect secondary to COVID-19. 4. Leukopenia. 5. Mild hyponatremia. Plan . PLAN AND RECOMMENDATIONS: 1. Titrate FiO2 to keep O2 saturation more than 94%/ VM 50% 2. Agree with antibiotic Zosyn and azithromycin. zyvox added 3. aggressive DVT prophylaxis. 4. Lovenox 40 mg subcutaneous b.i.d. 5. ID Rec. On Remdesivir. Received Plasma 10/09 .f/u Inflammatory markers 6. Monitor respiratory status closely. 7. Protonix for stress ulcer prophylaxis. 8. Discussed with rn 9. add steroids BEN GRAHAM MD Oct 13, 2019 11:35
--- NOTE | 2019-10-13 13:14 | PDOC ---
CARDIO Progress Notes Date and Time Date of Service 10/13/2019 Time of Evaluation 1150 Subjective Subjective: No Chest Pain, No Palpitations, Other (around in room standing up, no discomfort: SOA better) Vitals Vitals Vital Signs Date Time Temp Pulse Resp B/P (MAP) Pulse Ox O2 Delivery O2 Flow Rate FiO2 10/13/19 08:50 98 NonRebreather Mask 15.0 10/13/19 06:00 93 37 140/79 (99) 10/13/19 04:00 99.3 99.3 Weight Weight [ ] Input and Output Intake and Output Intake and Output 10/13/19 07:00 Intake Total 2310 ml Balance 2310 ml Intake Oral 2060 ml IV Total 250 ml # Voids 7 # Bowel Movements 3 Laboratory Labs Laboratory Tests Test 10/13/19 03:50 10/13/19 08:50 White Blood Count 4.8 x10^3/uL (4.0-11.0) Red Blood Count 4.11 x10^6/uL (4.30-5.70) Hemoglobin 13.0 g/dL (13.0-17.5) Hematocrit 37.4 % (39.0-53.0) Mean Corpuscular Volume 91 fL (79-100) Mean Corpuscular Hemoglobin 32 pg (25-35) Mean Corpuscular Hemoglobin Concent 35 g/dL (31-37) Red Cell Distribution Width 13.3 % (11.5-14.5) Platelet Count 324 x10^3/uL (140-400) Neutrophils (%) (Auto) 76 % (31-73) Lymphocytes (%) (Auto) 18 % (24-48) Monocytes (%) (Auto) 6 % (0-9) Eosinophils (%) (Auto) 0 % (0-3) Basophils (%) (Auto) 0 % (0-3) Neutrophils # (Auto) 3.7 x10^3/uL (1.8-7.7) Lymphocytes # (Auto) 0.9 x10^3/uL (1.0-4.8) Monocytes # (Auto) 0.3 x10^3/uL (0.0-1.1) Eosinophils # (Auto) 0.0 x10^3/uL (0.0-0.7) Basophils # (Auto) 0.0 x10^3/uL (0.0-0.2) Sodium Level 134 mmol/L (136-145) Potassium Level 3.5 mmol/L (3.5-5.1) Chloride Level 97 mmol/L (98-107) Carbon Dioxide Level 28 mmol/L (21-32) Anion Gap 9 (6-14) Blood Urea Nitrogen 15 mg/dL (8-26) Creatinine 1.0 mg/dL (0.7-1.3) Estimated GFR (Cockcroft-Gault) 77.9 BUN/Creatinine Ratio 15 (6-20) Glucose Level 109 mg/dL (70-99) Calcium Level 8.3 mg/dL (8.5-10.1) Total Bilirubin 0.8 mg/dL (0.2-1.0) Aspartate Amino Transf (AST/SGOT) 120 U/L (15-37) Alanine Aminotransferase (ALT/SGPT) 142 U/L (16-63) Alkaline Phosphatase 94 U/L (46-116) Lactate Dehydrogenase 660 U/L (85-227) C-Reactive Protein, Quantitative 190.1 mg/L (0-3.3) Total Protein 6.7 g/dL (6.4-8.2) Albumin 2.6 g/dL (3.4-5.0) Albumin/Globulin Ratio 0.6 (1.0-1.7) O2 Saturation 96 % (92-99) Arterial Blood pH 7.42 (7.35-7.45) Arterial Blood pCO2 at Patient Temp 40 mmHg (35-46) Arterial Blood pO2 at Patient Temp 85 mmHg (75-108) Arterial Blood HCO3 25 mmol/L (21-28) Arterial Blood Base Excess 1 mmol/L (-3-3) FiO2 100 Microbiology Micro Microbiology 10/09/19 Blood Culture - Preliminary, Resulted NO GROWTH AFTER 4 DAYS Physical Exam Chest: Symmetric LUNGS: Other (CXR reviewed) Heart: RRR (SR) Extremities: No Edema Neurology: alert, oriented, follow commands Other Exams Visual exam to conserve PPE, Walking in room with no distress, AOx3. Discussed with RN, stable overnight and on 50% venturi mask Assessment Assessment 1. Acute respiratory failure secondary to COVID PNA. COVID + 10/01. S/p plasma, Started on Remdesivir. No overt CHF. SOA more from PNA 2. Fevers 3. Atypical CP: due to covid PNA 4. Elevated LFTs with elevated inflammatory markers compatible with cytokine storm associated with covid 5. HTN: labile episode otherwise controlled Recommendations Ongoing lung optimization and treatment of COVID as per pulm and ID Will consider for outpt echo once fully recovered from covid. Supportive care from a CV standpoint. Vasotec IV PRN Justicifation of Admission Dx: Justifications for Admission: Justification of Admission Dx: Yes Respiratory Failure: Severe Resp Distress JABARI MARRERO SHIRT CREASER Oct 13, 2019 13:14
[2019-10-13] MEDS: methylPREDNISolone SOD SUCC PF 40 MG/ML VIAL. IV SCH ×2 (15:00→22:16)
[2019-10-14] VITALS (24 sets, daily range): BP systolic 106–153; BP diastolic 53–85
[2019-10-14 04:06] LABS: BASO % 0 % (0-3); EOS % 0 % (0-3); HEMATOCRIT 39.2 % (39.0-53.0); LYMPH # 0.6 x10^3/uL (1.0-4.8); LYMPH % 18 % (24-48); MEAN CORPUSCULAR HEMOGLOBIN 32 pg (25-35); MEAN CORPUSCULAR HGB CONC 36 g/dL (31-37); MEAN CORPUSCULAR VOLUME 91 fL (79-100); MONO # 0.1 x10^3/uL (0.0-1.1); MONO % 4 % (0-9); NEUT # 2.5 x10^3/uL (1.8-7.7); NEUT % 79 % (31-73); PLATELET COUNT 382 x10^3/uL (140-400); RED BLOOD COUNT 4.31 x10^6/uL (4.30-5.70); RED CELL DISTRIBUTION WIDTH 13.2 % (11.5-14.5); WHITE BLOOD COUNT 3.2 x10^3/uL (4.0-11.0)
[2019-10-14 05:14] LABS: ALBUMIN 2.5 g/dL (3.4-5.0); ALBUMIN/GLOBULIN RATIO 0.6 (1.0-1.7); C-REACTIVE PROTEIN 188.2 mg/L (0-3.3); CALCIUM 8.8 mg/dL (8.5-10.1); CREATININE 0.9 mg/dL (0.7-1.3); GFR 87.9; POTASSIUM 3.9 mmol/L (3.5-5.1); TOTAL BILIRUBIN 0.6 mg/dL (0.2-1.0)
[2019-10-14] MEDS: methylPREDNISolone SOD SUCC PF 40 MG/ML VIAL. IV SCH ×3 (05:40→22:39)
--- NOTE | 2019-10-14 07:54 | PDOC ---
Infectious Disease Note Subjective Subjective Less cough and loose stool. No fever. Some SOA No rash/dysuria Food is better ROS ROS o/w neg Vital Sign Vital Signs Vital Signs Date Time Temp Pulse Resp B/P (MAP) Pulse Ox O2 Delivery O2 Flow Rate FiO2 10/14/19 07:00 97.6 64 16 138/75 (96) 99 Venturi Mask 12.0 97.6 Physical Exam PHYSICAL EXAM CONSTITUTIONAL: He is a very pleasant gentleman. He is cooperative. He is in no distress. In bed On face mask. Looks a little tired still HEENT: Pupils are equal and reactive. He has normal conjunctivae. Oral cavity, pharynx is clear. NECK: Supple. Good range of motion. LUNGS: Has some mild crackles at the base. HEART: S1, S2. ABDOMEN: Soft, nontender, nondistended, positive bowel sounds. EXTREMITIES: Without clubbing or cyanosis. No gross edema. SKIN: Warm to touch without signs of rash. NEUROLOGIC: Nonfocal and pleasant. PSYCHIATRIC: Affect is appropriate Labs Lab Laboratory Tests Test 10/13/19 08:50 10/14/19 03:15 O2 Saturation 96 % (92-99) Arterial Blood pH 7.42 (7.35-7.45) Arterial Blood pCO2 at Patient Temp 40 mmHg (35-46) Arterial Blood pO2 at Patient Temp 85 mmHg (75-108) Arterial Blood HCO3 25 mmol/L (21-28) Arterial Blood Base Excess 1 mmol/L (-3-3) FiO2 100 White Blood Count 3.2 x10^3/uL (4.0-11.0) Red Blood Count 4.31 x10^6/uL (4.30-5.70) Hemoglobin 14.0 g/dL (13.0-17.5) Hematocrit 39.2 % (39.0-53.0) Mean Corpuscular Volume 91 fL (79-100) Mean Corpuscular Hemoglobin 32 pg (25-35) Mean Corpuscular Hemoglobin Concent 36 g/dL (31-37) Red Cell Distribution Width 13.2 % (11.5-14.5) Platelet Count 382 x10^3/uL (140-400) Neutrophils (%) (Auto) 79 % (31-73) Lymphocytes (%) (Auto) 18 % (24-48) Monocytes (%) (Auto) 4 % (0-9) Eosinophils (%) (Auto) 0 % (0-3) Basophils (%) (Auto) 0 % (0-3) Neutrophils # (Auto) 2.5 x10^3/uL (1.8-7.7) Lymphocytes # (Auto) 0.6 x10^3/uL (1.0-4.8) Monocytes # (Auto) 0.1 x10^3/uL (0.0-1.1) Eosinophils # (Auto) 0.0 x10^3/uL (0.0-0.7) Basophils # (Auto) 0.0 x10^3/uL (0.0-0.2) Sodium Level 137 mmol/L (136-145) Potassium Level 3.9 mmol/L (3.5-5.1) Chloride Level 99 mmol/L (98-107) Carbon Dioxide Level 30 mmol/L (21-32) Anion Gap 8 (6-14) Blood Urea Nitrogen 17 mg/dL (8-26) Creatinine 0.9 mg/dL (0.7-1.3) Estimated GFR (Cockcroft-Gault) 87.9 BUN/Creatinine Ratio 19 (6-20) Glucose Level 169 mg/dL (70-99) Calcium Level 8.8 mg/dL (8.5-10.1) Total Bilirubin 0.6 mg/dL (0.2-1.0) Aspartate Amino Transf (AST/SGOT) 102 U/L (15-37) Alanine Aminotransferase (ALT/SGPT) 171 U/L (16-63) Alkaline Phosphatase 109 U/L (46-116) Lactate Dehydrogenase 529 U/L (85-227) C-Reactive Protein, Quantitative 188.2 mg/L (0-3.3) Total Protein 7.0 g/dL (6.4-8.2) Albumin 2.5 g/dL (3.4-5.0) Albumin/Globulin Ratio 0.6 (1.0-1.7) Micro Microbiology 10/09/19 Blood Culture - Preliminary, Resulted NO GROWTH AFTER 2 DAYS Objective Assessment COVID + on 10/01 s/p Plasma 10/09 and started Remdesivir also. LDH/CRP and LFTs better today Fever ? plasma vs infection - better Acute hypoxic resp failure on 10 L facemask and stable - On solumedrol 10/12 Abnormal CXR Transaminitis Plan Plan of Care D/cont Zosyn and Azithromycin 10/11 Added Zyvox 10/10 wean soon Steroids started 10/12 Begin Remdesivir 10/09 F/u labs -LDH/CRP/CMP and cults Cont in ICU for monitoring D/w nursing JUANJOSE MENDOZA MD Oct 14, 2019 07:54
[2019-10-14] MEDS: ENOXAPARIN 40 MG/0.4 ML SYRINGE. SQ SCH ×2 (08:35→20:46)
[2019-10-14] MEDS: LACTOBACILLUS RHAMNOSUS GG 1 CAPSULE. PO SCH ×2 (08:35→20:47)
[2019-10-14] MEDS: ZINC SULFATE 220 MG CAPSULE. PO SCH (08:35)
[2019-10-14] MEDS: FAMOTIDINE 20 MG TABLET. PO SCH ×2 (08:35→20:47)
[2019-10-14] MEDS: LINEZOLID 600 MG TABLET PO SCH ×2 (08:35→20:46)
--- NOTE | 2019-10-14 09:06 | PDOC ---
PROGRESS NOTES Chief Complaint Chief Complaint IMPRESSION Recurrent and worsening Covid-19 syndrome Respiratory failure Acute pneumonia Transaminase-itis leukopenia Diarrhea Sepsis Headache ID Rec. On Remdesivir. Received Plasma 10/09 .f/u Inflammatory markers IV SOLUMEDROL LOVENOX 40 MG SQ BID GI PROPHYLAXIS AM LABS 32 MIN CC TIME History of Present Illness History of Present Illness 10/11/2019 No acute events reported overnight, case discussed with nursing staff patient in no acute distress no complaints during my visit, continues to require no nrebreather mask noted to keep his oxygen saturation above 90%. Patient seems quite antsy and anxious of being in isolation, reassurance has been provided and the plan of care explained in detail 10/11/2019 Patient seen and examined He continues to require more and more oxygen Now on 100% nonrebreather Discussed with RN Chart reviewed 10/10/2019 Patient seen and examined He appears quite ill He is short of breath and hypoxic at 87% despite being on O2 per nasal cannula I called the pharmacy to order some convalescent plasma but they explained only certain doctors are allowed to order it I called Dr. Enciso, he was not sure how to get it either (but he did order the Remdesivir and we certainly appreciate his input and help) I notified Dr. Salguero of the situation, and he is going to call in order the convalescent plasma for us. Thank you Chart reviewed Discussed with RN I reviewed the chest x-ray myself it is showing worsening congestion bilaterally as well as borderline cardiomegaly I went ahead and consulted cardiology also Vitals Vitals Vital Signs Date Time Temp Pulse Resp B/P (MAP) Pulse Ox O2 Delivery O2 Flow Rate FiO2 10/14/19 08:00 97.6 80 16 115/62 (79) 99 12.0 97.6 10/14/19 07:00 Venturi Mask Physical Exam Physical Exam CONSTITUTIONAL: He is a very pleasant gentleman. He is cooperative. He is in no distress. In bed On face mask. Looks a little tired still HEENT: Pupils are equal and reactive. He has normal conjunctivae. Oral cavity, pharynx is clear. NECK: Supple. Good range of motion. LUNGS: Has some mild crackles at the base. HEART: S1, S2. ABDOMEN: Soft, nontender, nondistended, positive bowel sounds. EXTREMITIES: Without clubbing or cyanosis. No gross edema. SKIN: Warm to touch without signs of rash. NEUROLOGIC: Nonfocal and pleasant. PSYCHIATRIC: Affect is appropriate General: Alert, Oriented X3, Cooperative, No acute distress Heart: Regular rate (SR/ST) Abdomen: Soft, No tenderness, No hepatosplenomegaly Extremities: No cyanosis, No edema Skin: No breakdown, No significant lesion Labs LABS SPEC #: [id number] STARLA: 10/09/19 STATUS: COMP REQ #: [id number] RECD: 10/09/[address] [facility] [address]: ANNA MARIE CORNEJO DO SOURCE: BLOOD ENTR: 10/09/19 [facility] DR: RODRÍGUEZ PCP SPDESC: ORDERED: BCULT Procedure Result BLOOD CULTURE Final NO GROWTH AFTER 5 DAYS EXAM: CHEST AP ONLY INDICATION: Reason: cough, soa, COVID-19 POSITIVE / Spl. Instructions: / History: . TECHNIQUE: Single view COMPARISON: 10/06/2019 chest x-ray FINDINGS: The heart size is normal. The great vessels appear unremarkable. There is no hilar or mediastinal mass. Lungs show bilateral reticulonodular opacities greater on the left than on the right, more apparent in the interval. There persists evidence of mild pulmonary vascular congestion centrally. There is no pleural effusion or pneumothorax. There are no significant osseous abnormalities. IMPRESSION: Evidence of worsening lung aeration with more conspicuous bilateral reticulonodular densities. This could reflect a combination of pulmonary vascular congestion and atypical infection. Correlate clinically. Electronically signed by: Funmilayo Ibarra MD (10/09/2019 8:38 AM) [id number] DICTATED and SIGNED BY: FUNMILAYO IBARRA MD DATE: 10/09/19 0838 Laboratory Tests Test 10/14/19 03:15 White Blood Count 3.2 x10^3/uL (4.0-11.0) Red Blood Count 4.31 x10^6/uL (4.30-5.70) Hemoglobin 14.0 g/dL (13.0-17.5) Hematocrit 39.2 % (39.0-53.0) Mean Corpuscular Volume 91 fL (79-100) Mean Corpuscular Hemoglobin 32 pg (25-35) Mean Corpuscular Hemoglobin Concent 36 g/dL (31-37) Red Cell Distribution Width 13.2 % (11.5-14.5) Platelet Count 382 x10^3/uL (140-400) Neutrophils (%) (Auto) 79 % (31-73) Lymphocytes (%) (Auto) 18 % (24-48) Monocytes (%) (Auto) 4 % (0-9) Eosinophils (%) (Auto) 0 % (0-3) Basophils (%) (Auto) 0 % (0-3) Neutrophils # (Auto) 2.5 x10^3/uL (1.8-7.7) Lymphocytes # (Auto) 0.6 x10^3/uL (1.0-4.8) Monocytes # (Auto) 0.1 x10^3/uL (0.0-1.1) Eosinophils # (Auto) 0.0 x10^3/uL (0.0-0.7) Basophils # (Auto) 0.0 x10^3/uL (0.0-0.2) Sodium Level 137 mmol/L (136-145) Potassium Level 3.9 mmol/L (3.5-5.1) Chloride Level 99 mmol/L (98-107) Carbon Dioxide Level 30 mmol/L (21-32) Anion Gap 8 (6-14) Blood Urea Nitrogen 17 mg/dL (8-26) Creatinine 0.9 mg/dL (0.7-1.3) Estimated GFR (Cockcroft-Gault) 87.9 BUN/Creatinine Ratio 19 (6-20) Glucose Level 169 mg/dL (70-99) Calcium Level 8.8 mg/dL (8.5-10.1) Total Bilirubin 0.6 mg/dL (0.2-1.0) Aspartate Amino Transf (AST/SGOT) 102 U/L (15-37) Alanine Aminotransferase (ALT/SGPT) 171 U/L (16-63) Alkaline Phosphatase 109 U/L (46-116) Lactate Dehydrogenase 529 U/L (85-227) C-Reactive Protein, Quantitative 188.2 mg/L (0-3.3) Total Protein 7.0 g/dL (6.4-8.2) Albumin 2.5 g/dL (3.4-5.0) Albumin/Globulin Ratio 0.6 (1.0-1.7) Assessment and Plan Assessmemt and Plan Problems Medical Problems: (1) COVID-19 virus infection Status: Acute (2) Pneumonia Status: Acute Comment Review of Relevant I have reviewed the following items alyssa (where applicable) has been applied. Labs Laboratory Tests Test 10/13/19 03:50 10/13/19 08:50 10/14/19 03:15 White Blood Count 4.8 x10^3/uL (4.0-11.0) 3.2 x10^3/uL (4.0-11.0) Red Blood Count 4.11 x10^6/uL (4.30-5.70) 4.31 x10^6/uL (4.30-5.70) Hemoglobin 13.0 g/dL (13.0-17.5) 14.0 g/dL (13.0-17.5) Hematocrit 37.4 % (39.0-53.0) 39.2 % (39.0-53.0) Mean Corpuscular Volume 91 fL (79-100) 91 fL (79-100) Mean Corpuscular Hemoglobin 32 pg (25-35) 32 pg (25-35) Mean Corpuscular Hemoglobin Concent 35 g/dL (31-37) 36 g/dL (31-37) Red Cell Distribution Width 13.3 % (11.5-14.5) 13.2 % (11.5-14.5) Platelet Count 324 x10^3/uL (140-400) 382 x10^3/uL (140-400) Neutrophils (%) (Auto) 76 % (31-73) 79 % (31-73) Lymphocytes (%) (Auto) 18 % (24-48) 18 % (24-48) Monocytes (%) (Auto) 6 % (0-9) 4 % (0-9) Eosinophils (%) (Auto) 0 % (0-3) 0 % (0-3) Basophils (%) (Auto) 0 % (0-3) 0 % (0-3) Neutrophils # (Auto) 3.7 x10^3/uL (1.8-7.7) 2.5 x10^3/uL (1.8-7.7) Lymphocytes # (Auto) 0.9 x10^3/uL (1.0-4.8) 0.6 x10^3/uL (1.0-4.8) Monocytes # (Auto) 0.3 x10^3/uL (0.0-1.1) 0.1 x10^3/uL (0.0-1.1) Eosinophils # (Auto) 0.0 x10^3/uL (0.0-0.7) 0.0 x10^3/uL (0.0-0.7) Basophils # (Auto) 0.0 x10^3/uL (0.0-0.2) 0.0 x10^3/uL (0.0-0.2) Sodium Level 134 mmol/L (136-145) 137 mmol/L (136-145) Potassium Level 3.5 mmol/L (3.5-5.1) 3.9 mmol/L (3.5-5.1) Chloride Level 97 mmol/L (98-107) 99 mmol/L (98-107) Carbon Dioxide Level 28 mmol/L (21-32) 30 mmol/L (21-32) Anion Gap 9 (6-14) 8 (6-14) Blood Urea Nitrogen 15 mg/dL (8-26) 17 mg/dL (8-26) Creatinine 1.0 mg/dL (0.7-1.3) 0.9 mg/dL (0.7-1.3) Estimated GFR (Cockcroft-Gault) 77.9 87.9 BUN/Creatinine Ratio 15 (6-20) 19 (6-20) Glucose Level 109 mg/dL (70-99) 169 mg/dL (70-99) Calcium Level 8.3 mg/dL (8.5-10.1) 8.8 mg/dL (8.5-10.1) Total Bilirubin 0.8 mg/dL (0.2-1.0) 0.6 mg/dL (0.2-1.0) Aspartate Amino Transf (AST/SGOT) 120 U/L (15-37) 102 U/L (15-37) Alanine Aminotransferase (ALT/SGPT) 142 U/L (16-63) 171 U/L (16-63) Alkaline Phosphatase 94 U/L (46-116) 109 U/L (46-116) Lactate Dehydrogenase 660 U/L (85-227) 529 U/L (85-227) C-Reactive Protein, Quantitative 190.1 mg/L (0-3.3) 188.2 mg/L (0-3.3) Total Protein 6.7 g/dL (6.4-8.2) 7.0 g/dL (6.4-8.2) Albumin 2.6 g/dL (3.4-5.0) 2.5 g/dL (3.4-5.0) Albumin/Globulin Ratio 0.6 (1.0-1.7) 0.6 (1.0-1.7) O2 Saturation 96 % (92-99) Arterial Blood pH 7.42 (7.35-7.45) Arterial Blood pCO2 at Patient Temp 40 mmHg (35-46) Arterial Blood pO2 at Patient Temp 85 mmHg (75-108) Arterial Blood HCO3 25 mmol/L (21-28) Arterial Blood Base Excess 1 mmol/L (-3-3) FiO2 100 Laboratory Tests Test 10/14/19 03:15 White Blood Count 3.2 x10^3/uL (4.0-11.0) Red Blood Count 4.31 x10^6/uL (4.30-5.70) Hemoglobin 14.0 g/dL (13.0-17.5) Hematocrit 39.2 % (39.0-53.0) Mean Corpuscular Volume 91 fL (79-100) Mean Corpuscular Hemoglobin 32 pg (25-35) Mean Corpuscular Hemoglobin Concent 36 g/dL (31-37) Red Cell Distribution Width 13.2 % (11.5-14.5) Platelet Count 382 x10^3/uL (140-400) Neutrophils (%) (Auto) 79 % (31-73) Lymphocytes (%) (Auto) 18 % (24-48) Monocytes (%) (Auto) 4 % (0-9) Eosinophils (%) (Auto) 0 % (0-3) Basophils (%) (Auto) 0 % (0-3) Neutrophils # (Auto) 2.5 x10^3/uL (1.8-7.7) Lymphocytes # (Auto) 0.6 x10^3/uL (1.0-4.8) Monocytes # (Auto) 0.1 x10^3/uL (0.0-1.1) Eosinophils # (Auto) 0.0 x10^3/uL (0.0-0.7) Basophils # (Auto) 0.0 x10^3/uL (0.0-0.2) Sodium Level 137 mmol/L (136-145) Potassium Level 3.9 mmol/L (3.5-5.1) Chloride Level 99 mmol/L (98-107) Carbon Dioxide Level 30 mmol/L (21-32) Anion Gap 8 (6-14) Blood Urea Nitrogen 17 mg/dL (8-26) Creatinine 0.9 mg/dL (0.7-1.3) Estimated GFR (Cockcroft-Gault) 87.9 BUN/Creatinine Ratio 19 (6-20) Glucose Level 169 mg/dL (70-99) Calcium Level 8.8 mg/dL (8.5-10.1) Total Bilirubin 0.6 mg/dL (0.2-1.0) Aspartate Amino Transf (AST/SGOT) 102 U/L (15-37) Alanine Aminotransferase (ALT/SGPT) 171 U/L (16-63) Alkaline Phosphatase 109 U/L (46-116) Lactate Dehydrogenase 529 U/L (85-227) C-Reactive Protein, Quantitative 188.2 mg/L (0-3.3) Total Protein 7.0 g/dL (6.4-8.2) Albumin 2.5 g/dL (3.4-5.0) Albumin/Globulin Ratio 0.6 (1.0-1.7) Microbiology 10/09/19 Blood Culture - Preliminary, Resulted NO GROWTH AFTER 4 DAYS Medications Current Medications Acetaminophen (Tylenol) 650 mg 1X ONCE PO ; Start 10/09/19 at 08:15; Stop 10/09/19 at 08:16; Status Cancel Acetaminophen (Tylenol) 1,000 mg 1X ONCE PO ; Start 10/09/19 at 08:15; Stop 10/09/19 at 08:16; Status Cancel Acetaminophen (Tylenol) 650 mg 1X ONCE PO Last administered on 10/09/19at 08:07; Start 10/09/19 at 08:15; Stop 10/09/19 at 08:16; Status DC Piperacillin Sod/ Tazobactam Sod 3.375 gm/Sodium Chloride 50 ml @ 100 mls/hr 1X ONCE IV Last administered on 10/09/19at 09:56; Start 10/09/19 at 09:30; Stop 10/09/19 at 09:59; Status DC Enoxaparin Sodium (Lovenox 40mg Syringe) 40 mg BID SQ Last administered on 10/14/19at 08:35; Start 10/09/19 at 21:00 Pantoprazole Sodium (Protonix) 40 mg DAILYAC PO ; Start 10/10/19 at 07:30; Stop 10/09/19 at 12:32; Status DC Famotidine (Pepcid) 20 mg BID PO Last administered on 10/14/19at 08:35; Start 10/09/19 at 21:00 Azithromycin 500 mg/Sodium Chloride 250 ml @ 250 mls/hr Q24H IV Last administered on 10/11/19at 14:29; Start 10/09/19 at 14:00; Stop 10/12/19 at 09:02; Status DC Piperacillin Sod/ Tazobactam Sod 3.375 gm/Sodium Chloride 50 ml @ 100 mls/hr Q6HRS IV Last administered on 10/12/19 06:05; Start 10/09/19 at 18:00; Stop 10/12/19 at 09:01; Status DC Zinc Sulfate (Orazinc) 220 mg DAILY PO Last administered on 10/14/19at 08:35; Start 10/10/19 at 09:00 Guaifenesin (Robitussin Dm) 10 ml PRN Q6HRS PRN PO COUGH Last administered on 10/10/19at 10:22; Start 10/09/19 at 13:30 Ondansetron HCl (Zofran) 4 mg PRN Q4HRS PRN IVP NAUSEA/VOMITING; Start 10/09/19 at 13:30 Acetaminophen (Tylenol) 1,000 mg PRN Q6HRS PRN PO MILD PAIN / TEMP > 100.3'F Last administered on 10/11/19at 19:06; Start 10/09/19 at 13:45 Zolpidem Tartrate (Ambien) 5 mg PRN QHS PRN PO INSOMNIA Last administered on 10/10/19 22:00; Start 10/09/19 at 20:00; Stop 10/11/19 at 13:32; Status DC Throat Lozenges (Cepacol Sore Throat Lozenge) 1 chris PRN Q1HR PRN PO SORE THROAT Last administered on 10/10/19at 08:04; Start 10/10/19 at 03:30 Non-Formulary Medication 1 ea/ Sodium Chloride 250 ml @ 500 mls/hr 1X ONCE IV Last administered on 10/10/19at 08:33; Start 10/10/19 at 09:00; Stop 10/10/19 at 09:29; Status DC Linezolid (Zyvox) 600 mg BID PO Last administered on 10/14/19 08:35; Start 10/10/19 at 09:00 Non-Formulary Medication 1 ea/ Sodium Chloride 250 ml @ 500 mls/hr Q24H IV Last administered on 10/13/19at 10:26; Start 10/11/19 at 09:00; Stop 10/14/19 at 09:29 Potassium Chloride (Klor-Con) 40 meq 1X ONCE PO Last administered on 10/10/19at 12:11; Start 10/10/19 at 12:45; Stop 10/10/19 at 12:46; Status DC Lactobacillus Rhamnosus (Culturelle) 1 cap BID PO Last administered on 10/14/19at 08:35; Start 10/11/19 at 12:30 Lactobacillus Rhamnosus (Culturelle) 1 cap BID PO ; Start 10/11/19 at 21:00; Status UNV Temazepam (Restoril) 15 mg PRN QHS PRN PO INSOMNIA Last administered on 10/13/19at 22:15; Start 10/11/19 at 13:45 Alprazolam (Xanax) 0.5 mg PRN Q8HRS PRN PO ANXIETY / AGITATION Last administered on 10/13/19at 22:15; Start 10/11/19 at 17:30 Enalaprilat (Vasotec Inj) 1.25 mg PRN Q6HRS PRN IVP HYPERTENSION; Start 10/12/19 at 21:15 Methylprednisolone Sodium Succinate (SOLU-Medrol 40MG VIAL) 60 mg Q8HRS IV Last administered on 10/14/19at 05:40; Start 10/13/19 at 12:00 Active Scripts Active Proair Hfa Inhaler (Albuterol Sulfate) 8.5 Gm Hfa.aer.ad 2 Puff IH PRN Q4-6HRS PRN 21 Days Mucinex Dm Er 600-30 Mg Tablet (Guaifenesin/Dextromethorphan) 1 Each Tab.er.12h 1 Tab PO PRN BID PRN 14 Days Tylenol With Codeine #3 Tablet (Acetaminophen/Codeine Phosphate) 1 Each Tablet 1 Tab PO PRN Q8HRS PRN Zithromax (Azithromycin) 500 Mg Tablet 1 Tab PO DAILY Vitals/I & O Vital Sign - Last 24 Hours 10/13/19 10/13/19 10/13/19 10/13/19 10:00 11:00 12:00 12:00 Temp 98.3 98.3 Pulse 86 96 88 Resp 25 29 27 B/P (MAP) 119/66 (83) 142/77 (98) 129/68 (88) Pulse Ox 98 94 96 O2 Delivery NonRebreather Mask Venturi Mask Venturi Mask Venturi Mask O2 Flow Rate 10.0 15.0 15.0 15.0 6/10/13/19 10/13/19 10/13/19 13:00 14:00 15:00 16:00 Temp 98.0 98.0 Pulse 90 96 96 108 Resp 28 B/P (MAP) 149/72 (97) 127/60 (82) 136/66 (89) 147/65 (92) Pulse Ox 94 93 96 96 O2 Delivery Venturi Mask Venturi Mask Venturi Mask Venturi Mask O2 Flow Rate 15.0 12.0 12.0 12.0 10/13/19 10/13/19 10/13/19 10/13/19 16:00 17:00 18:00 19:00 Pulse 106 96 100 Resp 24 B/P (MAP) 136/64 (88) 121/62 (81) 118/71 (87) Pulse Ox 97 96 95 O2 Delivery Venturi Mask Venturi Mask Venturi Mask Venturi Mask O2 Flow Rate 15.0 12.0 12.0 12.0 10/13/19 10/13/19 10/13/19 10/13/19 20:00 20:00 21:00 22:00 Temp 98.3 98.3 Pulse 100 82 76 Resp 22 B/P (MAP) 127/70 (89) 113/59 (77) 107/61 (76) Pulse Ox 96 96 91 O2 Delivery Venturi Mask Venturi Mask Venturi Mask Venturi Mask O2 Flow Rate 12.0 12.0 12.0 12.0 10/13/19 10/14/19 10/14/19 10/14/19 23:00 00:00 00:01 01:00 Temp 97.7 97.7 Pulse 88 78 82 Resp 18 B/P (MAP) 120/64 (82) 125/67 (86) 117/69 (85) Pulse Ox 91 97 96 O2 Delivery Venturi Mask Non-Rebreather NonRebreather Mask NonRebreather Mask O2 Flow Rate 15.0 10.0 10.0 10.0 10/14/19 10/14/19 10/14/19 10/14/19 02:00 03:00 03:45 04:00 Temp 97.6 97.6 Pulse 68 76 63 Resp 22 B/P (MAP) 119/70 (86) 114/63 (80) 128/72 (90) Pulse Ox 96 94 99 O2 Delivery NonRebreather Mask NonRebreather Mask Non-Rebreather NonRebreather Mask O2 Flow Rate 10.0 10.0 10.0 10.0 10/14/19 10/14/19 10/14/19 10/14/19 05:00 06:00 07:00 08:00 Temp 97.6 97.6 97.6 97.6 Pulse 63 64 64 80 Resp 24 24 16 16 B/P (MAP) 133/75 (94) 124/67 (86) 138/75 (96) 115/62 (79) Pulse Ox 95 96 99 99 O2 Delivery Venturi Mask Venturi Mask Venturi Mask O2 Flow Rate 12.0 12.0 12.0 12.0 Intake and Output 10/13/19 10/13/19 10/14/19 15:00 23:00 07:00 Intake Total 1210 ml 680 ml 100 ml Balance 1210 ml 680 ml 100 ml BRENNAN WILLIS MD Oct 14, 2019 09:06
[2019-10-14] MEDS: NON FORMULARY ITEM 1 EA in IV NORMAL SALINE 250ML 250 ML IV SCH (09:44)
--- NOTE | 2019-10-14 10:36 | PDOC ---
Subjective: Subjective: Indicates he "so-so" likes the food. Objective: Objective: No GI concerns per nurse - has had some loose stools, not excessive. Vital Signs: Vital Signs Date Time Temp Pulse Resp B/P (MAP) Pulse Ox O2 Delivery O2 Flow Rate FiO2 10/14/19 10:00 71 15 112/53 (72) 96 Venturi Mask 12.0 10/14/19 08:00 97.6 97.6 Labs: Laboratory Tests Test 10/14/19 03:15 White Blood Count 3.2 x10^3/uL Red Blood Count 4.31 x10^6/uL Hemoglobin 14.0 g/dL Hematocrit 39.2 % Mean Corpuscular Volume 91 fL Mean Corpuscular Hemoglobin 32 pg Mean Corpuscular Hemoglobin Concent 36 g/dL Red Cell Distribution Width 13.2 % Platelet Count 382 x10^3/uL Neutrophils (%) (Auto) 79 % Lymphocytes (%) (Auto) 18 % Monocytes (%) (Auto) 4 % Eosinophils (%) (Auto) 0 % Basophils (%) (Auto) 0 % Neutrophils # (Auto) 2.5 x10^3/uL Lymphocytes # (Auto) 0.6 x10^3/uL Monocytes # (Auto) 0.1 x10^3/uL Eosinophils # (Auto) 0.0 x10^3/uL Basophils # (Auto) 0.0 x10^3/uL Sodium Level 137 mmol/L Potassium Level 3.9 mmol/L Chloride Level 99 mmol/L Carbon Dioxide Level 30 mmol/L Anion Gap 8 Blood Urea Nitrogen 17 mg/dL Creatinine 0.9 mg/dL Estimated GFR (Cockcroft-Gault) 87.9 BUN/Creatinine Ratio 19 Glucose Level 169 mg/dL Calcium Level 8.8 mg/dL Total Bilirubin 0.6 mg/dL Aspartate Amino Transf (AST/SGOT) 102 U/L Alanine Aminotransferase (ALT/SGPT) 171 U/L Alkaline Phosphatase 109 U/L Lactate Dehydrogenase 529 U/L C-Reactive Protein, Quantitative 188.2 mg/L Total Protein 7.0 g/dL Albumin 2.5 g/dL Albumin/Globulin Ratio 0.6 BLOOD CULTURE Final NO GROWTH AFTER 5 DAYS PE: GEN: in COVID-isolation in ICU, observed through windows LUNGS: breathing mask HEART: RR per monitor ABD: non-distended, eating breakfast up in chair NEURO/PSYCH: A & O 3 A/P: +COVID-19 resp failure Elevated AST and ALT - fluctuating Loose stools -- Continue support from GI standpoint. Justicifation of Admission Dx: Justifications for Admission: Justification of Admission Dx: Yes Respiratory Failure: Severe Resp Distress JAVIER VERA Oct 14, 2019 10:36
--- NOTE | 2019-10-14 10:38 | NUR ---
SS following up with discharge planning. SS reviewed pt chart and discussed with pt RN. Pt is currently on venturi mask at 12 liters and is COVID19 positive. SS will continue to follow for discharge planning.
--- NOTE | 2019-10-14 11:34 | PDOC ---
PULMONARY PROGRESS NOTES Subjective no soa on 50%VM Vitals Vital Signs Date Time Temp Pulse Resp B/P (MAP) Pulse Ox O2 Delivery O2 Flow Rate FiO2 10/14/19 11:00 97.5 91 123/62 (82) 98 Venturi Mask 12.0 97.5 10/14/19 10:00 15 Comments on 02 appears comfortable no resp distress less cough no paradoxical abd motion no audible wheezing alert and orientated no rash no edema General: Alert Labs Laboratory Tests Test 10/13/19 03:50 10/13/19 08:50 10/14/19 03:15 White Blood Count 4.8 x10^3/uL (4.0-11.0) 3.2 x10^3/uL (4.0-11.0) Red Blood Count 4.11 x10^6/uL (4.30-5.70) 4.31 x10^6/uL (4.30-5.70) Hemoglobin 13.0 g/dL (13.0-17.5) 14.0 g/dL (13.0-17.5) Hematocrit 37.4 % (39.0-53.0) 39.2 % (39.0-53.0) Mean Corpuscular Volume 91 fL (79-100) 91 fL (79-100) Mean Corpuscular Hemoglobin 32 pg (25-35) 32 pg (25-35) Mean Corpuscular Hemoglobin Concent 35 g/dL (31-37) 36 g/dL (31-37) Red Cell Distribution Width 13.3 % (11.5-14.5) 13.2 % (11.5-14.5) Platelet Count 324 x10^3/uL (140-400) 382 x10^3/uL (140-400) Neutrophils (%) (Auto) 76 % (31-73) 79 % (31-73) Lymphocytes (%) (Auto) 18 % (24-48) 18 % (24-48) Monocytes (%) (Auto) 6 % (0-9) 4 % (0-9) Eosinophils (%) (Auto) 0 % (0-3) 0 % (0-3) Basophils (%) (Auto) 0 % (0-3) 0 % (0-3) Neutrophils # (Auto) 3.7 x10^3/uL (1.8-7.7) 2.5 x10^3/uL (1.8-7.7) Lymphocytes # (Auto) 0.9 x10^3/uL (1.0-4.8) 0.6 x10^3/uL (1.0-4.8) Monocytes # (Auto) 0.3 x10^3/uL (0.0-1.1) 0.1 x10^3/uL (0.0-1.1) Eosinophils # (Auto) 0.0 x10^3/uL (0.0-0.7) 0.0 x10^3/uL (0.0-0.7) Basophils # (Auto) 0.0 x10^3/uL (0.0-0.2) 0.0 x10^3/uL (0.0-0.2) Sodium Level 134 mmol/L (136-145) 137 mmol/L (136-145) Potassium Level 3.5 mmol/L (3.5-5.1) 3.9 mmol/L (3.5-5.1) Chloride Level 97 mmol/L (98-107) 99 mmol/L (98-107) Carbon Dioxide Level 28 mmol/L (21-32) 30 mmol/L (21-32) Anion Gap 9 (6-14) 8 (6-14) Blood Urea Nitrogen 15 mg/dL (8-26) 17 mg/dL (8-26) Creatinine 1.0 mg/dL (0.7-1.3) 0.9 mg/dL (0.7-1.3) Estimated GFR (Cockcroft-Gault) 77.9 87.9 BUN/Creatinine Ratio 15 (6-20) 19 (6-20) Glucose Level 109 mg/dL (70-99) 169 mg/dL (70-99) Calcium Level 8.3 mg/dL (8.5-10.1) 8.8 mg/dL (8.5-10.1) Total Bilirubin 0.8 mg/dL (0.2-1.0) 0.6 mg/dL (0.2-1.0) Aspartate Amino Transf (AST/SGOT) 120 U/L (15-37) 102 U/L (15-37) Alanine Aminotransferase (ALT/SGPT) 142 U/L (16-63) 171 U/L (16-63) Alkaline Phosphatase 94 U/L (46-116) 109 U/L (46-116) Lactate Dehydrogenase 660 U/L (85-227) 529 U/L (85-227) C-Reactive Protein, Quantitative 190.1 mg/L (0-3.3) 188.2 mg/L (0-3.3) Total Protein 6.7 g/dL (6.4-8.2) 7.0 g/dL (6.4-8.2) Albumin 2.6 g/dL (3.4-5.0) 2.5 g/dL (3.4-5.0) Albumin/Globulin Ratio 0.6 (1.0-1.7) 0.6 (1.0-1.7) O2 Saturation 96 % (92-99) Arterial Blood pH 7.42 (7.35-7.45) Arterial Blood pCO2 at Patient Temp 40 mmHg (35-46) Arterial Blood pO2 at Patient Temp 85 mmHg (75-108) Arterial Blood HCO3 25 mmol/L (21-28) Arterial Blood Base Excess 1 mmol/L (-3-3) FiO2 100 Laboratory Tests Test 10/14/19 03:15 White Blood Count 3.2 x10^3/uL (4.0-11.0) Red Blood Count 4.31 x10^6/uL (4.30-5.70) Hemoglobin 14.0 g/dL (13.0-17.5) Hematocrit 39.2 % (39.0-53.0) Mean Corpuscular Volume 91 fL (79-100) Mean Corpuscular Hemoglobin 32 pg (25-35) Mean Corpuscular Hemoglobin Concent 36 g/dL (31-37) Red Cell Distribution Width 13.2 % (11.5-14.5) Platelet Count 382 x10^3/uL (140-400) Neutrophils (%) (Auto) 79 % (31-73) Lymphocytes (%) (Auto) 18 % (24-48) Monocytes (%) (Auto) 4 % (0-9) Eosinophils (%) (Auto) 0 % (0-3) Basophils (%) (Auto) 0 % (0-3) Neutrophils # (Auto) 2.5 x10^3/uL (1.8-7.7) Lymphocytes # (Auto) 0.6 x10^3/uL (1.0-4.8) Monocytes # (Auto) 0.1 x10^3/uL (0.0-1.1) Eosinophils # (Auto) 0.0 x10^3/uL (0.0-0.7) Basophils # (Auto) 0.0 x10^3/uL (0.0-0.2) Sodium Level 137 mmol/L (136-145) Potassium Level 3.9 mmol/L (3.5-5.1) Chloride Level 99 mmol/L (98-107) Carbon Dioxide Level 30 mmol/L (21-32) Anion Gap 8 (6-14) Blood Urea Nitrogen 17 mg/dL (8-26) Creatinine 0.9 mg/dL (0.7-1.3) Estimated GFR (Cockcroft-Gault) 87.9 BUN/Creatinine Ratio 19 (6-20) Glucose Level 169 mg/dL (70-99) Calcium Level 8.8 mg/dL (8.5-10.1) Total Bilirubin 0.6 mg/dL (0.2-1.0) Aspartate Amino Transf (AST/SGOT) 102 U/L (15-37) Alanine Aminotransferase (ALT/SGPT) 171 U/L (16-63) Alkaline Phosphatase 109 U/L (46-116) Lactate Dehydrogenase 529 U/L (85-227) C-Reactive Protein, Quantitative 188.2 mg/L (0-3.3) Total Protein 7.0 g/dL (6.4-8.2) Albumin 2.5 g/dL (3.4-5.0) Albumin/Globulin Ratio 0.6 (1.0-1.7) Medications Active Scripts Medications Dose Route/Sig Max Daily Dose Days Date Category Proair Hfa Inhaler (Albuterol Sulfate) 8.5 Gm Hfa.aer.ad 2 Puff IH PRN Q4-6HRS PRN 21 10/06/19 Rx Mucinex Dm Er 600-30 Mg Tablet (Guaifenesin/Dextromethorphan) 1 Each Tab.er.12h 1 Tab PO PRN BID PRN 14 10/06/19 Rx Tylenol With Codeine #3 Tablet (Acetaminophen/Codeine Phosphate) 1 Each Tablet 1 Tab PO PRN Q8HRS PRN 10/06/19 Rx Zithromax (Azithromycin) 500 Mg Tablet 1 Tab PO DAILY 10/02/19 Rx Comments cxr reviewed Impression . IMPRESSION: 1. COVID-19 pneumonia with worsening hypoxia and ALI 2. Abnormal chest x-ray c/w COVID-19 pneumonia 3. Mildly elevated AST and ALT, suspect secondary to COVID-19. 4. Leukopenia. 5. Mild hyponatremia. Plan . PLAN AND RECOMMENDATIONS: 1. Titrate FiO2 to keep O2 saturation more than 94%/ VM 50% 2. Agree with antibiotic Zosyn and azithromycin. zyvox added 3. aggressive DVT prophylaxis. 4. Lovenox 40 mg subcutaneous b.i.d. 5. ID Rec. On Remdesivir. Received Plasma 10/09 .f/u Inflammatory markers 6. Monitor respiratory status closely. 7. Protonix for stress ulcer prophylaxis. 8. Discussed with rn 9. added steroids 10/12 BEN GRAHAM MD Oct 14, 2019 11:34
[2019-10-14] MEDS: TEMAZEPAM 15 MG CAPSULE PO PRN (22:38)
[2019-10-14] MEDS: ALPRAZolam 0.5 MG TABLET PO PRN (22:38)
[2019-10-15] VITALS (16 sets, daily range): BP systolic 105–141; BP diastolic 53–74
[2019-10-15 05:12] LABS: ALBUMIN 2.3 g/dL (3.4-5.0); ALBUMIN/GLOBULIN RATIO 0.6 (1.0-1.7); C-REACTIVE PROTEIN 97.2 mg/L (0-3.3); CALCIUM 8.6 mg/dL (8.5-10.1); CREATININE 0.9 mg/dL (0.7-1.3); GFR 87.9; POTASSIUM 3.8 mmol/L (3.5-5.1); TOTAL BILIRUBIN 0.5 mg/dL (0.2-1.0); TOTAL PROTEIN 6.3 g/dL (6.4-8.2)
[2019-10-15] MEDS: methylPREDNISolone SOD SUCC PF 40 MG/ML VIAL. IV SCH ×3 (05:54→20:53)
--- NOTE | 2019-10-15 07:16 | PDOC ---
Infectious Disease Note Subjective Subjective Less cough and loose stool. No fever. Some SOA but better No rash/dysuria Eating better ROS ROS o/w neg Vital Sign Vital Signs Vital Signs Date Time Temp Pulse Resp B/P (MAP) Pulse Ox O2 Delivery O2 Flow Rate FiO2 10/15/19 06:00 68 22 119/60 (79) 97 NonRebreather Mask 15.0 10/15/19 05:00 97.8 97.8 Physical Exam PHYSICAL EXAM CONSTITUTIONAL: He is a very pleasant gentleman. He is cooperative. He is in no distress. In a chair On face mask. Looks better HEENT: Pupils are equal and reactive. He has normal conjunctivae. Oral cavity, pharynx is clear. NECK: Supple. Good range of motion. LUNGS: Has some mild crackles at the base. HEART: S1, S2. ABDOMEN: Soft, nontender, nondistended, positive bowel sounds. EXTREMITIES: Without clubbing or cyanosis. No gross edema. SKIN: Warm to touch without signs of rash. NEUROLOGIC: Nonfocal and pleasant. PSYCHIATRIC: Affect is appropriate Labs Lab Laboratory Tests Test 10/15/19 04:30 Sodium Level 138 mmol/L (136-145) Potassium Level 3.8 mmol/L (3.5-5.1) Chloride Level 101 mmol/L (98-107) Carbon Dioxide Level 29 mmol/L (21-32) Anion Gap 8 (6-14) Blood Urea Nitrogen 21 mg/dL (8-26) Creatinine 0.9 mg/dL (0.7-1.3) Estimated GFR (Cockcroft-Gault) 87.9 BUN/Creatinine Ratio 23 (6-20) Glucose Level 205 mg/dL (70-99) Calcium Level 8.6 mg/dL (8.5-10.1) Total Bilirubin 0.5 mg/dL (0.2-1.0) Aspartate Amino Transf (AST/SGOT) 50 U/L (15-37) Alanine Aminotransferase (ALT/SGPT) 124 U/L (16-63) Alkaline Phosphatase 89 U/L (46-116) Lactate Dehydrogenase 405 U/L (85-227) C-Reactive Protein, Quantitative 97.2 mg/L (0-3.3) Total Protein 6.3 g/dL (6.4-8.2) Albumin 2.3 g/dL (3.4-5.0) Albumin/Globulin Ratio 0.6 (1.0-1.7) Micro Microbiology 10/09/19 Blood Culture - Preliminary, Resulted NO GROWTH AFTER 2 DAYS Objective Assessment COVID + on 10/01 - Improving - s/p Plasma 10/09 and Remdesivir completed also. LDH/CRP and LFTs better today Fever - better ? plasma vs infection Acute hypoxic resp failure on facemask when sleeping was on 4 L yesterday and stable - On solumedrol 10/12 Abnormal CXR Transaminitis Plan Plan of Care D/cont Zosyn and Azithromycin 10/11 Added Zyvox 10/10 wean 10/14 Steroids started 10/12 F/u labs D/w nursing JUANJOSE MENDOZA MD Oct 15, 2019 07:16
[2019-10-15] MEDS: FAMOTIDINE 20 MG TABLET. PO SCH ×2 (09:22→20:54)
[2019-10-15] MEDS: ENOXAPARIN 40 MG/0.4 ML SYRINGE. SQ SCH ×2 (09:22→20:54)
[2019-10-15] MEDS: LACTOBACILLUS RHAMNOSUS GG 1 CAPSULE. PO SCH ×2 (09:22→20:54)
[2019-10-15] MEDS: ZINC SULFATE 220 MG CAPSULE. PO SCH (09:22)
--- NOTE | 2019-10-15 10:08 | PDOC ---
PROGRESS NOTES Chief Complaint Chief Complaint IMPRESSION Recurrent and worsening Covid-19 syndrome Respiratory failure Acute pneumonia Transaminase-itis leukopenia Diarrhea Sepsis Headache ID Rec. On Remdesivir. Received Plasma 10/09 .f/u Inflammatory markers IV SOLUMEDROL LOVENOX 40 MG SQ BID GI PROPHYLAXIS AM LABS 35 MIN CC TIME History of Present Illness History of Present Illness 10/11/2019 No acute events reported overnight, case discussed with nursing staff patient in no acute distress no complaints during my visit, continues to require no nrebreather mask noted to keep his oxygen saturation above 90%. Patient seems quite antsy and anxious of being in isolation, reassurance has been provided and the plan of care explained in detail 10/11/2019 Patient seen and examined He continues to require more and more oxygen Now on 100% nonrebreather Discussed with RN Chart reviewed 10/10/2019 Patient seen and examined He appears quite ill He is short of breath and hypoxic at 87% despite being on O2 per nasal cannula I called the pharmacy to order some convalescent plasma but they explained only certain doctors are allowed to order it I called Dr. Enciso, he was not sure how to get it either (but he did order the Remdesivir and we certainly appreciate his input and help) I notified Dr. Salguero of the situation, and he is going to call in order the convalescent plasma for us. Thank you Chart reviewed Discussed with RN I reviewed the chest x-ray myself it is showing worsening congestion bilaterally as well as borderline cardiomegaly I went ahead and consulted cardiology also Vitals Vitals Vital Signs Date Time Temp Pulse Resp B/P (MAP) Pulse Ox O2 Delivery O2 Flow Rate FiO2 10/15/19 09:00 83 28 122/67 (85) 91 Nasal Cannula 6.0 10/15/19 08:00 97.6 97.6 Physical Exam Physical Exam CONSTITUTIONAL: He is a very pleasant gentleman. He is cooperative. He is in no distress. In a chair On face mask. Looks better HEENT: Pupils are equal and reactive. He has normal conjunctivae. Oral cavity, pharynx is clear. NECK: Supple. Good range of motion. LUNGS: Has some mild crackles at the base. HEART: S1, S2. ABDOMEN: Soft, nontender, nondistended, positive bowel sounds. EXTREMITIES: Without clubbing or cyanosis. No gross edema. SKIN: Warm to touch without signs of rash. NEUROLOGIC: Nonfocal and pleasant. PSYCHIATRIC: Affect is appropriate General: Alert, Oriented X3, Cooperative, No acute distress Heart: Regular rate (SR/ST) Abdomen: Soft, No tenderness, No hepatosplenomegaly Extremities: No cyanosis, No edema Skin: No breakdown, No significant lesion Labs LABS Laboratory Tests Test 10/15/19 04:30 Sodium Level 138 mmol/L (136-145) Potassium Level 3.8 mmol/L (3.5-5.1) Chloride Level 101 mmol/L (98-107) Carbon Dioxide Level 29 mmol/L (21-32) Anion Gap 8 (6-14) Blood Urea Nitrogen 21 mg/dL (8-26) Creatinine 0.9 mg/dL (0.7-1.3) Estimated GFR (Cockcroft-Gault) 87.9 BUN/Creatinine Ratio 23 (6-20) Glucose Level 205 mg/dL (70-99) Calcium Level 8.6 mg/dL (8.5-10.1) Total Bilirubin 0.5 mg/dL (0.2-1.0) Aspartate Amino Transf (AST/SGOT) 50 U/L (15-37) Alanine Aminotransferase (ALT/SGPT) 124 U/L (16-63) Alkaline Phosphatase 89 U/L (46-116) Lactate Dehydrogenase 405 U/L (85-227) C-Reactive Protein, Quantitative 97.2 mg/L (0-3.3) Total Protein 6.3 g/dL (6.4-8.2) Albumin 2.3 g/dL (3.4-5.0) Albumin/Globulin Ratio 0.6 (1.0-1.7) Assessment and Plan Assessmemt and Plan Problems Medical Problems: (1) COVID-19 virus infection Status: Acute (2) Pneumonia Status: Acute Comment Review of Relevant I have reviewed the following items alyssa (where applicable) has been applied. Labs Laboratory Tests Test 10/14/19 03:15 10/15/19 04:30 White Blood Count 3.2 x10^3/uL (4.0-11.0) Red Blood Count 4.31 x10^6/uL (4.30-5.70) Hemoglobin 14.0 g/dL (13.0-17.5) Hematocrit 39.2 % (39.0-53.0) Mean Corpuscular Volume 91 fL (79-100) Mean Corpuscular Hemoglobin 32 pg (25-35) Mean Corpuscular Hemoglobin Concent 36 g/dL (31-37) Red Cell Distribution Width 13.2 % (11.5-14.5) Platelet Count 382 x10^3/uL (140-400) Neutrophils (%) (Auto) 79 % (31-73) Lymphocytes (%) (Auto) 18 % (24-48) Monocytes (%) (Auto) 4 % (0-9) Eosinophils (%) (Auto) 0 % (0-3) Basophils (%) (Auto) 0 % (0-3) Neutrophils # (Auto) 2.5 x10^3/uL (1.8-7.7) Lymphocytes # (Auto) 0.6 x10^3/uL (1.0-4.8) Monocytes # (Auto) 0.1 x10^3/uL (0.0-1.1) Eosinophils # (Auto) 0.0 x10^3/uL (0.0-0.7) Basophils # (Auto) 0.0 x10^3/uL (0.0-0.2) Sodium Level 137 mmol/L (136-145) 138 mmol/L (136-145) Potassium Level 3.9 mmol/L (3.5-5.1) 3.8 mmol/L (3.5-5.1) Chloride Level 99 mmol/L (98-107) 101 mmol/L (98-107) Carbon Dioxide Level 30 mmol/L (21-32) 29 mmol/L (21-32) Anion Gap 8 (6-14) 8 (6-14) Blood Urea Nitrogen 17 mg/dL (8-26) 21 mg/dL (8-26) Creatinine 0.9 mg/dL (0.7-1.3) 0.9 mg/dL (0.7-1.3) Estimated GFR (Cockcroft-Gault) 87.9 87.9 BUN/Creatinine Ratio 19 (6-20) 23 (6-20) Glucose Level 169 mg/dL (70-99) 205 mg/dL (70-99) Calcium Level 8.8 mg/dL (8.5-10.1) 8.6 mg/dL (8.5-10.1) Total Bilirubin 0.6 mg/dL (0.2-1.0) 0.5 mg/dL (0.2-1.0) Aspartate Amino Transf (AST/SGOT) 102 U/L (15-37) 50 U/L (15-37) Alanine Aminotransferase (ALT/SGPT) 171 U/L (16-63) 124 U/L (16-63) Alkaline Phosphatase 109 U/L (46-116) 89 U/L (46-116) Lactate Dehydrogenase 529 U/L (85-227) 405 U/L (85-227) C-Reactive Protein, Quantitative 188.2 mg/L (0-3.3) 97.2 mg/L (0-3.3) Total Protein 7.0 g/dL (6.4-8.2) 6.3 g/dL (6.4-8.2) Albumin 2.5 g/dL (3.4-5.0) 2.3 g/dL (3.4-5.0) Albumin/Globulin Ratio 0.6 (1.0-1.7) 0.6 (1.0-1.7) Laboratory Tests Test 10/15/19 04:30 Sodium Level 138 mmol/L (136-145) Potassium Level 3.8 mmol/L (3.5-5.1) Chloride Level 101 mmol/L (98-107) Carbon Dioxide Level 29 mmol/L (21-32) Anion Gap 8 (6-14) Blood Urea Nitrogen 21 mg/dL (8-26) Creatinine 0.9 mg/dL (0.7-1.3) Estimated GFR (Cockcroft-Gault) 87.9 BUN/Creatinine Ratio 23 (6-20) Glucose Level 205 mg/dL (70-99) Calcium Level 8.6 mg/dL (8.5-10.1) Total Bilirubin 0.5 mg/dL (0.2-1.0) Aspartate Amino Transf (AST/SGOT) 50 U/L (15-37) Alanine Aminotransferase (ALT/SGPT) 124 U/L (16-63) Alkaline Phosphatase 89 U/L (46-116) Lactate Dehydrogenase 405 U/L (85-227) C-Reactive Protein, Quantitative 97.2 mg/L (0-3.3) Total Protein 6.3 g/dL (6.4-8.2) Albumin 2.3 g/dL (3.4-5.0) Albumin/Globulin Ratio 0.6 (1.0-1.7) Microbiology 10/09/19 Blood Culture - Final, Complete NO GROWTH AFTER 5 DAYS Medications Current Medications Acetaminophen (Tylenol) 650 mg 1X ONCE PO ; Start 10/09/19 at 08:15; Stop 10/09/19 at 08:16; Status Cancel Acetaminophen (Tylenol) 1,000 mg 1X ONCE PO ; Start 10/09/19 at 08:15; Stop 10/09/19 at 08:16; Status Cancel Acetaminophen (Tylenol) 650 mg 1X ONCE PO Last administered on 10/09/19at 08:07; Start 10/09/19 at 08:15; Stop 10/09/19 at 08:16; Status DC Piperacillin Sod/ Tazobactam Sod 3.375 gm/Sodium Chloride 50 ml @ 100 mls/hr 1X ONCE IV Last administered on 10/09/19at 09:56; Start 10/09/19 at 09:30; Stop 10/09/19 at 09:59; Status DC Enoxaparin Sodium (Lovenox 40mg Syringe) 40 mg BID SQ Last administered on 10/15/19at 09:22; Start 10/09/19 at 21:00 Pantoprazole Sodium (Protonix) 40 mg DAILYAC PO ; Start 10/10/19 at 07:30; Stop 10/09/19 at 12:32; Status DC Famotidine (Pepcid) 20 mg BID PO Last administered on 10/15/19at 09:22; Start 10/09/19 at 21:00 Azithromycin 500 mg/Sodium Chloride 250 ml @ 250 mls/hr Q24H IV Last administered on 10/11/19at 14:29; Start 10/09/19 at 14:00; Stop 10/12/19 at 09:02; Status DC Piperacillin Sod/ Tazobactam Sod 3.375 gm/Sodium Chloride 50 ml @ 100 mls/hr Q6HRS IV Last administered on 10/12/19at 06:05; Start 10/09/19 at 18:00; Stop 10/12/19 at 09:01; Status DC Zinc Sulfate (Orazinc) 220 mg DAILY PO Last administered on 10/15/19 09:22; Start 10/10/19 at 09:00 Guaifenesin (Robitussin Dm) 10 ml PRN Q6HRS PRN PO COUGH Last administered on 10/10/19 10:22; Start 10/09/19 at 13:30 Ondansetron HCl (Zofran) 4 mg PRN Q4HRS PRN IVP NAUSEA/VOMITING; Start 10/09/19 at 13:30 Acetaminophen (Tylenol) 1,000 mg PRN Q6HRS PRN PO MILD PAIN / TEMP > 100.3'F Last administered on 10/11/19 19:06; Start 10/09/19 at 13:45 Zolpidem Tartrate (Ambien) 5 mg PRN QHS PRN PO INSOMNIA Last administered on 10/10/19 22:00; Start 10/09/19 at 20:00; Stop 10/11/19 at 13:32; Status DC Throat Lozenges (Cepacol Sore Throat Lozenge) 1 chris PRN Q1HR PRN PO SORE THROAT Last administered on 10/10/19 08:04; Start 10/10/19 at 03:30 Non-Formulary Medication 1 ea/ Sodium Chloride 250 ml @ 500 mls/hr 1X ONCE IV Last administered on 10/10/19 08:33; Start 10/10/19 at 09:00; Stop 10/10/19 at 09:29; Status DC Linezolid (Zyvox) 600 mg BID PO Last administered on 10/14/19 20:46; Start 10/10/19 at 09:00; Stop 10/15/19 at 07:59; Status DC Non-Formulary Medication 1 ea/ Sodium Chloride 250 ml @ 500 mls/hr Q24H IV Last administered on 10/14/19 09:44; Start 10/11/19 at 09:00; Stop 10/14/19 at 09:29; Status DC Potassium Chloride (Klor-Con) 40 meq 1X ONCE PO Last administered on 10/10/19at 12:11; Start 10/10/19 at 12:45; Stop 10/10/19 at 12:46; Status DC Lactobacillus Rhamnosus (Culturelle) 1 cap BID PO Last administered on 10/15/19at 09:22; Start 10/11/19 at 12:30 Lactobacillus Rhamnosus (Culturelle) 1 cap BID PO ; Start 10/11/19 at 21:00; Status UNV Temazepam (Restoril) 15 mg PRN QHS PRN PO INSOMNIA Last administered on 10/14/19at 22:38; Start 10/11/19 at 13:45 Alprazolam (Xanax) 0.5 mg PRN Q8HRS PRN PO ANXIETY / AGITATION Last administered on 10/14/19at 22:38; Start 10/11/19 at 17:30 Enalaprilat (Vasotec Inj) 1.25 mg PRN Q6HRS PRN IVP HYPERTENSION; Start 10/12/19 at 21:15 Methylprednisolone Sodium Succinate (SOLU-Medrol 40MG VIAL) 60 mg Q8HRS IV Last administered on 10/15/19at 05:54; Start 10/13/19 at 12:00 Active Scripts Active Proair Hfa Inhaler (Albuterol Sulfate) 8.5 Gm Hfa.aer.ad 2 Puff IH PRN Q4-6HRS PRN 21 Days Mucinex Dm Er 600-30 Mg Tablet (Guaifenesin/Dextromethorphan) 1 Each Tab.er.12h 1 Tab PO PRN BID PRN 14 Days Tylenol With Codeine #3 Tablet (Acetaminophen/Codeine Phosphate) 1 Each Tablet 1 Tab PO PRN Q8HRS PRN Zithromax (Azithromycin) 500 Mg Tablet 1 Tab PO DAILY Vitals/I & O Vital Sign - Last 24 Hours 10/14/19 10/14/19 10/14/19 10/14/19 11:00 12:00 12:00 13:00 Temp 97.5 97.5 Pulse 91 74 77 Resp 16 16 B/P (MAP) 123/62 (82) 106/79 (88) 120/77 (91) Pulse Ox 98 100 95 O2 Delivery Venturi Mask Venturi Mask Venturi Mask Venturi Mask O2 Flow Rate 12.0 12.0 12.0 12.0 10/14/19 10/14/19 10/14/19 10/14/19 14:00 15:00 16:00 16:00 Temp 97.1 97.1 97.1 97.1 Pulse 87 84 74 Resp 17 17 B/P (MAP) 130/64 (86) 129/73 (91) 125/68 (87) Pulse Ox 99 98 99 O2 Delivery Venturi Mask Venturi Mask Venturi Mask Venturi Mask O2 Flow Rate 12.0 12.0 12.0 12.0 10/13/20 10/13/20 10/14/19 10/14/19 17:00 18:00 19:00 20:00 Pulse 87 87 77 Resp 17 16 24 B/P (MAP) 153/85 (107) 140/75 (96) 120/63 (82) Pulse Ox 100 94 91 O2 Delivery Venturi Mask Nasal Cannula Nasal Cannula Nasal Cannula O2 Flow Rate 12.0 4.0 4.0 4.0 10/14/19 10/14/19 10/14/19 10/14/19 20:00 21:00 22:00 23:00 Temp 97.6 97.6 Pulse 81 78 95 89 Resp 24 28 20 12 B/P (MAP) 136/70 (92) 133/69 (90) 144/69 (94) 133/69 (90) Pulse Ox 93 98 97 86 O2 Delivery Nasal Cannula Nasal Cannula Nasal Cannula Nasal Cannula O2 Flow Rate 4.0 4.0 4.0 4.0 10/14/1910/13/10/15/19 10/15/19 23:30 23:45 00:00 00:00 Temp 97.9 97.9 Pulse 70 Resp 23 B/P (MAP) 140/63 (88) Pulse Ox 87 88 97 O2 Delivery Nasal Cannula Nasal Cannula Non-Rebreather NonRebreather Mask O2 Flow Rate 6.0 10.0 15.0 15.0 10/15/19 10/15/19 10/15/19 10/15/19 01:00 02:00 03:00 04:00 Pulse 71 69 82 67 Resp 22 21 21 30 B/P (MAP) 117/57 (77) 134/69 (90) 126/74 (91) 113/61 (78) Pulse Ox 95 95 95 96 O2 Delivery NonRebreather Mask NonRebreather Mask NonRebreather Mask NonRebreather Mask O2 Flow Rate 15.0 15.0 15.0 15.0 10/15/19 10/15/19 10/15/19 10/15/19 04:00 05:00 06:00 07:00 Temp 97.8 97.8 Pulse 66 68 86 Resp 21 22 25 B/P (MAP) 107/56 (73) 119/60 (79) 105/53 (70) Pulse Ox 99 97 96 O2 Delivery Non-Rebreather NonRebreather Mask NonRebreather Mask NonRebreather Mask O2 Flow Rate 15.0 15.0 15.0 15.0 10/15/19 10/15/19 10/15/19 08:00 08:00 09:00 Temp 97.6 97.6 Pulse 81 83 Resp 26 28 B/P (MAP) 126/74 (91) 122/67 (85) Pulse Ox 90 91 O2 Delivery Nasal Cannula Nasal Cannula Nasal Cannula O2 Flow Rate 6.0 4.0 6.0 Intake and Output 10/14/19 10/14/19 10/15/19 15:00 23:00 07:00 Intake Total 360 ml 1240 ml 0 ml Balance 360 ml 1240 ml 0 ml BRNENAN WILLIS MD Oct 15, 2019 10:07
--- NOTE | 2019-10-15 11:16 | PDOC ---
PULMONARY PROGRESS NOTES Subjective no soa on 50%VM Vitals Vital Signs Date Time Temp Pulse Resp B/P (MAP) Pulse Ox O2 Delivery O2 Flow Rate FiO2 10/15/19 10:00 84 30 132/68 (89) 95 Nasal Cannula 6.0 10/15/19 08:00 97.6 97.6 Comments on 02 appears comfortable no resp distress less cough no paradoxical abd motion no audible wheezing alert and orientated no rash no edema General: Alert, No acute distress Labs Laboratory Tests Test 10/14/19 03:15 10/15/19 04:30 White Blood Count 3.2 x10^3/uL (4.0-11.0) Red Blood Count 4.31 x10^6/uL (4.30-5.70) Hemoglobin 14.0 g/dL (13.0-17.5) Hematocrit 39.2 % (39.0-53.0) Mean Corpuscular Volume 91 fL (79-100) Mean Corpuscular Hemoglobin 32 pg (25-35) Mean Corpuscular Hemoglobin Concent 36 g/dL (31-37) Red Cell Distribution Width 13.2 % (11.5-14.5) Platelet Count 382 x10^3/uL (140-400) Neutrophils (%) (Auto) 79 % (31-73) Lymphocytes (%) (Auto) 18 % (24-48) Monocytes (%) (Auto) 4 % (0-9) Eosinophils (%) (Auto) 0 % (0-3) Basophils (%) (Auto) 0 % (0-3) Neutrophils # (Auto) 2.5 x10^3/uL (1.8-7.7) Lymphocytes # (Auto) 0.6 x10^3/uL (1.0-4.8) Monocytes # (Auto) 0.1 x10^3/uL (0.0-1.1) Eosinophils # (Auto) 0.0 x10^3/uL (0.0-0.7) Basophils # (Auto) 0.0 x10^3/uL (0.0-0.2) Sodium Level 137 mmol/L (136-145) 138 mmol/L (136-145) Potassium Level 3.9 mmol/L (3.5-5.1) 3.8 mmol/L (3.5-5.1) Chloride Level 99 mmol/L (98-107) 101 mmol/L (98-107) Carbon Dioxide Level 30 mmol/L (21-32) 29 mmol/L (21-32) Anion Gap 8 (6-14) 8 (6-14) Blood Urea Nitrogen 17 mg/dL (8-26) 21 mg/dL (8-26) Creatinine 0.9 mg/dL (0.7-1.3) 0.9 mg/dL (0.7-1.3) Estimated GFR (Cockcroft-Gault) 87.9 87.9 BUN/Creatinine Ratio 19 (6-20) 23 (6-20) Glucose Level 169 mg/dL (70-99) 205 mg/dL (70-99) Calcium Level 8.8 mg/dL (8.5-10.1) 8.6 mg/dL (8.5-10.1) Total Bilirubin 0.6 mg/dL (0.2-1.0) 0.5 mg/dL (0.2-1.0) Aspartate Amino Transf (AST/SGOT) 102 U/L (15-37) 50 U/L (15-37) Alanine Aminotransferase (ALT/SGPT) 171 U/L (16-63) 124 U/L (16-63) Alkaline Phosphatase 109 U/L (46-116) 89 U/L (46-116) Lactate Dehydrogenase 529 U/L (85-227) 405 U/L (85-227) C-Reactive Protein, Quantitative 188.2 mg/L (0-3.3) 97.2 mg/L (0-3.3) Total Protein 7.0 g/dL (6.4-8.2) 6.3 g/dL (6.4-8.2) Albumin 2.5 g/dL (3.4-5.0) 2.3 g/dL (3.4-5.0) Albumin/Globulin Ratio 0.6 (1.0-1.7) 0.6 (1.0-1.7) Laboratory Tests Test 10/15/19 04:30 Sodium Level 138 mmol/L (136-145) Potassium Level 3.8 mmol/L (3.5-5.1) Chloride Level 101 mmol/L (98-107) Carbon Dioxide Level 29 mmol/L (21-32) Anion Gap 8 (6-14) Blood Urea Nitrogen 21 mg/dL (8-26) Creatinine 0.9 mg/dL (0.7-1.3) Estimated GFR (Cockcroft-Gault) 87.9 BUN/Creatinine Ratio 23 (6-20) Glucose Level 205 mg/dL (70-99) Calcium Level 8.6 mg/dL (8.5-10.1) Total Bilirubin 0.5 mg/dL (0.2-1.0) Aspartate Amino Transf (AST/SGOT) 50 U/L (15-37) Alanine Aminotransferase (ALT/SGPT) 124 U/L (16-63) Alkaline Phosphatase 89 U/L (46-116) Lactate Dehydrogenase 405 U/L (85-227) C-Reactive Protein, Quantitative 97.2 mg/L (0-3.3) Total Protein 6.3 g/dL (6.4-8.2) Albumin 2.3 g/dL (3.4-5.0) Albumin/Globulin Ratio 0.6 (1.0-1.7) Medications Active Scripts Medications Dose Route/Sig Max Daily Dose Days Date Category Proair Hfa Inhaler (Albuterol Sulfate) 8.5 Gm Hfa.aer.ad 2 Puff IH PRN Q4-6HRS PRN 21 10/06/19 Rx Mucinex Dm Er 600-30 Mg Tablet (Guaifenesin/Dextromethorphan) 1 Each Tab.er.12h 1 Tab PO PRN BID PRN 14 10/06/19 Rx Tylenol With Codeine #3 Tablet (Acetaminophen/Codeine Phosphate) 1 Each Tablet 1 Tab PO PRN Q8HRS PRN 10/06/19 Rx Zithromax (Azithromycin) 500 Mg Tablet 1 Tab PO DAILY 10/02/19 Rx Comments cxr reviewed Impression . IMPRESSION: 1. COVID-19 pneumonia with worsening hypoxia and ALI 2. Abnormal chest x-ray c/w COVID-19 pneumonia 3. Mildly elevated AST and ALT, suspect secondary to COVID-19. 4. Leukopenia. 5. Mild hyponatremia. Plan . PLAN AND RECOMMENDATIONS: 1. Titrate FiO2 to keep O2 saturation more than 94%/ VM 50% 2. Agree with antibiotic Zosyn and azithromycin. zyvox added 3. aggressive DVT prophylaxis. 4. Lovenox 40 mg subcutaneous b.i.d. 5. ID Rec. On Remdesivir. Received Plasma 10/09 .f/u Inflammatory markers 6. Monitor respiratory status closely. 7. Protonix for stress ulcer prophylaxis. 8. Discussed with rn 9. added steroids 10/12 ok with transfer to floor BEN GRAHAM MD Oct 15, 2019 11:16
--- NOTE | 2019-10-15 11:31 | NUR ---
SS following up with discharge planning. SS reviewed pt chart and discussed with pt RN. Pt now on 6 liters nasal canula. COVID19 positive. Pt will likely need oxygen at discharge. SS will continue to follow for discharge planning.
--- NOTE | 2019-10-15 13:19 | PDOC ---
Objective: Objective: No GI concerns. Resp status better. Transferring out of ICU. Vital Signs: Vital Signs Date Time Temp Pulse Resp B/P (MAP) Pulse Ox O2 Delivery O2 Flow Rate FiO2 10/15/19 12:00 Nasal Cannula 6.0 10/15/19 12:00 85 24 115/58 (77) 98 10/15/19 08:00 97.6 97.6 Labs: Laboratory Tests Test 10/15/19 04:30 Sodium Level 138 mmol/L Potassium Level 3.8 mmol/L Chloride Level 101 mmol/L Carbon Dioxide Level 29 mmol/L Anion Gap 8 Blood Urea Nitrogen 21 mg/dL Creatinine 0.9 mg/dL Estimated GFR (Cockcroft-Gault) 87.9 BUN/Creatinine Ratio 23 Glucose Level 205 mg/dL Calcium Level 8.6 mg/dL Total Bilirubin 0.5 mg/dL Aspartate Amino Transf (AST/SGOT) 50 U/L Alanine Aminotransferase (ALT/SGPT) 124 U/L Alkaline Phosphatase 89 U/L Lactate Dehydrogenase 405 U/L C-Reactive Protein, Quantitative 97.2 mg/L Total Protein 6.3 g/dL Albumin 2.3 g/dL Albumin/Globulin Ratio 0.6 PE: GEN: NAD, in chair in COVID isolation LUNGS: NC 6L HEART: RRR ABD: non-distended NEURO/PSYCH: A & O 3 A/P: +COVID-19 resp failure - better Elevated AST and ALT - better -- Plans as above, continue same per GI. Justicifation of Admission Dx: Justifications for Admission: Justification of Admission Dx: Yes Respiratory Failure: Severe Resp Distress JAVIER VERA Oct 15, 2019 13:19
[2019-10-16 03:45] VITALS: BP 126/70
[2019-10-16 04:16] LABS: BASO % 0 % (0-3); EOS % 0 % (0-3); HEMATOCRIT 37.2 % (39.0-53.0); LYMPH # 0.6 x10^3/uL (1.0-4.8); LYMPH % 5 % (24-48); MEAN CORPUSCULAR HEMOGLOBIN 32 pg (25-35); MEAN CORPUSCULAR HGB CONC 35 g/dL (31-37); MEAN CORPUSCULAR VOLUME 91 fL (79-100); MONO # 0.6 x10^3/uL (0.0-1.1); MONO % 5 % (0-9); NEUT # 9.6 x10^3/uL (1.8-7.7); NEUT % 89 % (31-73); PLATELET COUNT 464 x10^3/uL (140-400); RED BLOOD COUNT 4.09 x10^6/uL (4.30-5.70); RED CELL DISTRIBUTION WIDTH 13.2 % (11.5-14.5); WHITE BLOOD COUNT 10.8 x10^3/uL (4.0-11.0)
[2019-10-16 04:27] LABS: CREATININE 0.9 mg/dL (0.7-1.3); GFR 87.9
[2019-10-16 05:25] LABS: % BANDS 1 % (0-9); % LYMPHS 5 % (24-48); % MONOS 1 % (0-10); % SEGS 93 % (35-66)
[2019-10-16 05:26] LABS: PLT ESTIMATE ADEQUATE (ADEQUATE)
[2019-10-16] MEDS: methylPREDNISolone SOD SUCC PF 40 MG/ML VIAL. IV SCH ×2 (05:48→20:55)
[2019-10-16 07:00] VITALS: BP 129/65
--- NOTE | 2019-10-16 07:24 | PDOC ---
PULMONARY PROGRESS NOTES Subjective on 4 lpm, sob cough better, no pain, feeling better. Vitals Vital Signs Date Time Temp Pulse Resp B/P (MAP) Pulse Ox O2 Delivery O2 Flow Rate FiO2 10/16/19 03:45 97.9 69 18 126/70 (88) 96 Nasal Cannula 4.0 97.9 Comments on appears comfortable no resp distress less cough no paradoxical abd motion no audible wheezing alert and orientated no rash no edema General: Alert, No acute distress Labs Laboratory Tests Test 10/15/19 04:30 10/16/19 04:00 Sodium Level 138 mmol/L (136-145) 138 mmol/L (136-145) Potassium Level 3.8 mmol/L (3.5-5.1) 4.0 mmol/L (3.5-5.1) Chloride Level 101 mmol/L (98-107) 103 mmol/L (98-107) Carbon Dioxide Level 29 mmol/L (21-32) 32 mmol/L (21-32) Anion Gap 8 (6-14) 3 (6-14) Blood Urea Nitrogen 21 mg/dL (8-26) 19 mg/dL (8-26) Creatinine 0.9 mg/dL (0.7-1.3) 0.9 mg/dL (0.7-1.3) Estimated GFR (Cockcroft-Gault) 87.9 87.9 BUN/Creatinine Ratio 23 (6-20) Glucose Level 205 mg/dL (70-99) 206 mg/dL (70-99) Calcium Level 8.6 mg/dL (8.5-10.1) 8.0 mg/dL (8.5-10.1) Total Bilirubin 0.5 mg/dL (0.2-1.0) Aspartate Amino Transf (AST/SGOT) 50 U/L (15-37) Alanine Aminotransferase (ALT/SGPT) 124 U/L (16-63) Alkaline Phosphatase 89 U/L (46-116) Lactate Dehydrogenase 405 U/L (85-227) C-Reactive Protein, Quantitative 97.2 mg/L (0-3.3) Total Protein 6.3 g/dL (6.4-8.2) Albumin 2.3 g/dL (3.4-5.0) Albumin/Globulin Ratio 0.6 (1.0-1.7) White Blood Count 10.8 x10^3/uL (4.0-11.0) Red Blood Count 4.09 x10^6/uL (4.30-5.70) Hemoglobin 13.0 g/dL (13.0-17.5) Hematocrit 37.2 % (39.0-53.0) Mean Corpuscular Volume 91 fL (79-100) Mean Corpuscular Hemoglobin 32 pg (25-35) Mean Corpuscular Hemoglobin Concent 35 g/dL (31-37) Red Cell Distribution Width 13.2 % (11.5-14.5) Platelet Count 464 x10^3/uL (140-400) Neutrophils (%) (Auto) 89 % (31-73) Lymphocytes (%) (Auto) 5 % (24-48) Monocytes (%) (Auto) 5 % (0-9) Eosinophils (%) (Auto) 0 % (0-3) Basophils (%) (Auto) 0 % (0-3) Neutrophils # (Auto) 9.6 x10^3/uL (1.8-7.7) Lymphocytes # (Auto) 0.6 x10^3/uL (1.0-4.8) Monocytes # (Auto) 0.6 x10^3/uL (0.0-1.1) Eosinophils # (Auto) 0.0 x10^3/uL (0.0-0.7) Basophils # (Auto) 0.0 x10^3/uL (0.0-0.2) Segmented Neutrophils % 93 % (35-66) Band Neutrophils % 1 % (0-9) Lymphocytes % 5 % (24-48) Monocytes % 1 % (0-10) Platelet Estimate Adequate (ADEQUATE) Laboratory Tests Test 10/16/19 04:00 White Blood Count 10.8 x10^3/uL (4.0-11.0) Red Blood Count 4.09 x10^6/uL (4.30-5.70) Hemoglobin 13.0 g/dL (13.0-17.5) Hematocrit 37.2 % (39.0-53.0) Mean Corpuscular Volume 91 fL (79-100) Mean Corpuscular Hemoglobin 32 pg (25-35) Mean Corpuscular Hemoglobin Concent 35 g/dL (31-37) Red Cell Distribution Width 13.2 % (11.5-14.5) Platelet Count 464 x10^3/uL (140-400) Neutrophils (%) (Auto) 89 % (31-73) Lymphocytes (%) (Auto) 5 % (24-48) Monocytes (%) (Auto) 5 % (0-9) Eosinophils (%) (Auto) 0 % (0-3) Basophils (%) (Auto) 0 % (0-3) Neutrophils # (Auto) 9.6 x10^3/uL (1.8-7.7) Lymphocytes # (Auto) 0.6 x10^3/uL (1.0-4.8) Monocytes # (Auto) 0.6 x10^3/uL (0.0-1.1) Eosinophils # (Auto) 0.0 x10^3/uL (0.0-0.7) Basophils # (Auto) 0.0 x10^3/uL (0.0-0.2) Segmented Neutrophils % 93 % (35-66) Band Neutrophils % 1 % (0-9) Lymphocytes % 5 % (24-48) Monocytes % 1 % (0-10) Platelet Estimate Adequate (ADEQUATE) Sodium Level 138 mmol/L (136-145) Potassium Level 4.0 mmol/L (3.5-5.1) Chloride Level 103 mmol/L (98-107) Carbon Dioxide Level 32 mmol/L (21-32) Anion Gap 3 (6-14) Blood Urea Nitrogen 19 mg/dL (8-26) Creatinine 0.9 mg/dL (0.7-1.3) Estimated GFR (Cockcroft-Gault) 87.9 Glucose Level 206 mg/dL (70-99) Calcium Level 8.0 mg/dL (8.5-10.1) Medications Active Scripts Medications Dose Route/Sig Max Daily Dose Days Date Category Proair Hfa Inhaler (Albuterol Sulfate) 8.5 Gm Hfa.aer.ad 2 Puff IH PRN Q4-6HRS PRN 21 10/06/19 Rx Mucinex Dm Er 600-30 Mg Tablet (Guaifenesin/Dextromethorphan) 1 Each Tab.er.12h 1 Tab PO PRN BID PRN 14 10/06/19 Rx Tylenol With Codeine #3 Tablet (Acetaminophen/Codeine Phosphate) 1 Each Tablet 1 Tab PO PRN Q8HRS PRN 10/06/19 Rx Zithromax (Azithromycin) 500 Mg Tablet 1 Tab PO DAILY 10/02/19 Rx Comments cxr reviewed Impression . IMPRESSION: 1. COVID-19 pneumonia with worsening hypoxia and ALI 2. Abnormal chest x-ray c/w COVID-19 pneumonia 3. Mildly elevated AST and ALT, suspect secondary to COVID-19. 4. Leukopenia. 5. Mild hyponatremia. Plan . PLAN AND RECOMMENDATIONS: 1. Titrate FiO2 to keep O2 saturation more than 92% 2. cont antibiotic per id 3. aggressive DVT prophylaxis. 4. Lovenox 40 mg subcutaneous b.i.d. 5. ID Rec. On Remdesivir. Received Plasma 10/09 .f/u Inflammatory markers 6. Monitor respiratory status closely. 7. Protonix for stress ulcer prophylaxis. 8. Discussed with rn, pt 9. change solumedrol to 40 bid RAJNI UMANZOR MD Oct 16, 2019 07:24
[2019-10-16] MEDS: ENOXAPARIN 40 MG/0.4 ML SYRINGE. SQ SCH ×2 (08:23→20:55)
[2019-10-16] MEDS: FAMOTIDINE 20 MG TABLET. PO SCH ×2 (08:23→20:55)
[2019-10-16] MEDS: LACTOBACILLUS RHAMNOSUS GG 1 CAPSULE. PO SCH ×2 (08:23→20:55)
[2019-10-16] MEDS: ZINC SULFATE 220 MG CAPSULE. PO SCH (08:23)
[2019-10-16 11:00] VITALS: BP 117/65
--- NOTE | 2019-10-16 11:40 | PDOC ---
Infectious Disease Note Subjective Subjective Comfortable O2 down to 3L now Denies SOA/CP/F/C Ate 75% meal ROS ROS as mentioned above Vital Sign Vital Signs Vital Signs Date Time Temp Pulse Resp B/P (MAP) Pulse Ox O2 Delivery O2 Flow Rate FiO2 10/16/19 11:00 96.6 82 16 117/65 (82) 97 Nasal Cannula 4.0 96.6 Physical Exam PHYSICAL EXAM GENERAL: Propped up in bed, alert, smiling HEENT: Oral cavity, pharynx is clear. NECK: Supple. Good range of motion. LUNGS: Improved aeration HEART: S1, S2. ABDOMEN: Soft, nontender, nondistended EXTREMITIES: Without clubbing or cyanosis. No gross edema. SKIN: Warm to touch without signs of rash. NEUROLOGIC: Nonfocal and pleasant. PSYCHIATRIC: Affect is appropriate Labs Lab Laboratory Tests Test 10/16/19 04:00 White Blood Count 10.8 x10^3/uL (4.0-11.0) Red Blood Count 4.09 x10^6/uL (4.30-5.70) Hemoglobin 13.0 g/dL (13.0-17.5) Hematocrit 37.2 % (39.0-53.0) Mean Corpuscular Volume 91 fL (79-100) Mean Corpuscular Hemoglobin 32 pg (25-35) Mean Corpuscular Hemoglobin Concent 35 g/dL (31-37) Red Cell Distribution Width 13.2 % (11.5-14.5) Platelet Count 464 x10^3/uL (140-400) Neutrophils (%) (Auto) 89 % (31-73) Lymphocytes (%) (Auto) 5 % (24-48) Monocytes (%) (Auto) 5 % (0-9) Eosinophils (%) (Auto) 0 % (0-3) Basophils (%) (Auto) 0 % (0-3) Neutrophils # (Auto) 9.6 x10^3/uL (1.8-7.7) Lymphocytes # (Auto) 0.6 x10^3/uL (1.0-4.8) Monocytes # (Auto) 0.6 x10^3/uL (0.0-1.1) Eosinophils # (Auto) 0.0 x10^3/uL (0.0-0.7) Basophils # (Auto) 0.0 x10^3/uL (0.0-0.2) Segmented Neutrophils % 93 % (35-66) Band Neutrophils % 1 % (0-9) Lymphocytes % 5 % (24-48) Monocytes % 1 % (0-10) Platelet Estimate Adequate (ADEQUATE) Sodium Level 138 mmol/L (136-145) Potassium Level 4.0 mmol/L (3.5-5.1) Chloride Level 103 mmol/L (98-107) Carbon Dioxide Level 32 mmol/L (21-32) Anion Gap 3 (6-14) Blood Urea Nitrogen 19 mg/dL (8-26) Creatinine 0.9 mg/dL (0.7-1.3) Estimated GFR (Cockcroft-Gault) 87.9 Glucose Level 206 mg/dL (70-99) Calcium Level 8.0 mg/dL (8.5-10.1) Micro Microbiology 10/09/19 Blood Culture - Final, Complete NO GROWTH AFTER 5 DAYS Objective Assessment COVID + on 10/01 - Improving - s/p Plasma and Remdesivir Fever - resolved Acute hypoxic resp failure - improving O2 now down to 3L, on steroids Abnormal CXR Transaminitis - improving Leukopenia - better Plan Plan of Care Continue to observe off abx Steroids per pulm D/w nursing Attending Co-Sign The patient was seen and interviewed as well as examined at the bedside. The chart was reviewed. The case was discussed. Agree with the plan of care. LEDA OVIEDO APRN Oct 16, 2019 11:40 RAQUEL EDDY MD Oct 16, 2019 12:11
--- NOTE | 2019-10-16 12:57 | PDOC ---
[facility] PROGRESS NOTE Chief Complaint Chief Complaint COVID-19 syndrome (status post Remdesivir and recombinant plasma) Fulminant respiratory failure Hypoxia Pneumonia Transaminase-itis Hyponatremia Diarrhea Sepsis Headache History of Present Illness History of Present Illness 10/16/2019 Patient seen and examined on the COVID-19 respiratory isolation unit He is a little anxious and still on oxygen Chart reviewed Discussed with RN 10/11/2019 No acute events reported overnight, case discussed with nursing staff patient in no acute distress no complaints during my visit, continues to require nonrebreather mask noted to keep his oxygen saturation above 90%. Patient seems quite antsy and anxious of being in isolation, reassurance has been provided and the plan of care explained in detail 10/11/2019 Patient seen and examined He continues to require more and more oxygen Now on 100% nonrebreather Discussed with RN Chart reviewed 10/10/2019 Patient seen and examined He appears quite ill He is short of breath and hypoxic at 87% despite being on O2 per nasal cannula I called the pharmacy to order some convalescent plasma but they explained only certain doctors are allowed to order it I called Dr. Enciso, he was not sure how to get it either (but he did order the Remdesivir and we certainly appreciate his input and help) I notified Dr. Salguero of the situation, and he is going to call in order the convalescent plasma for us. Thank you Chart reviewed Discussed with RN I reviewed the chest x-ray myself it is showing worsening congestion bilaterally as well as borderline cardiomegaly I went ahead and consulted cardiology also Vitals/I&O Vitals/I&O: Vital Signs Date Time Temp Pulse Resp B/P (MAP) Pulse Ox O2 Delivery O2 Flow Rate FiO2 10/16/19 11:00 96.6 82 16 117/65 (82) 97 Nasal Cannula 4.0 96.6 I & O 10/15/19 10/15/19 10/16/19 15:00 23:00 07:00 Intake Total 1200 ml 460 ml 500 ml Balance 1200 ml 460 ml 500 ml Physical Exam Physical Exam: GENERAL: Propped up in bed, alert, smiling HEENT: Oral cavity, pharynx is clear. NECK: Supple. Good range of motion. LUNGS: Improved aeration HEART: S1, S2. ABDOMEN: Soft, nontender, nondistended EXTREMITIES: Without clubbing or cyanosis. No gross edema. SKIN: Warm to touch without signs of rash. NEUROLOGIC: Nonfocal and pleasant. PSYCHIATRIC: Affect is appropriate General: Alert, Oriented X3, Cooperative, No acute distress Heart: Regular rate (SR/ST) Abdomen: Soft, No tenderness, No hepatosplenomegaly Extremities: No cyanosis, No edema Skin: No breakdown, No significant lesion Labs Labs: Laboratory Tests Test 10/16/19 04:00 White Blood Count 10.8 x10^3/uL (4.0-11.0) Red Blood Count 4.09 x10^6/uL (4.30-5.70) Hemoglobin 13.0 g/dL (13.0-17.5) Hematocrit 37.2 % (39.0-53.0) Mean Corpuscular Volume 91 fL (79-100) Mean Corpuscular Hemoglobin 32 pg (25-35) Mean Corpuscular Hemoglobin Concent 35 g/dL (31-37) Red Cell Distribution Width 13.2 % (11.5-14.5) Platelet Count 464 x10^3/uL (140-400) Neutrophils (%) (Auto) 89 % (31-73) Lymphocytes (%) (Auto) 5 % (24-48) Monocytes (%) (Auto) 5 % (0-9) Eosinophils (%) (Auto) 0 % (0-3) Basophils (%) (Auto) 0 % (0-3) Neutrophils # (Auto) 9.6 x10^3/uL (1.8-7.7) Lymphocytes # (Auto) 0.6 x10^3/uL (1.0-4.8) Monocytes # (Auto) 0.6 x10^3/uL (0.0-1.1) Eosinophils # (Auto) 0.0 x10^3/uL (0.0-0.7) Basophils # (Auto) 0.0 x10^3/uL (0.0-0.2) Segmented Neutrophils % 93 % (35-66) Band Neutrophils % 1 % (0-9) Lymphocytes % 5 % (24-48) Monocytes % 1 % (0-10) Platelet Estimate Adequate (ADEQUATE) Sodium Level 138 mmol/L (136-145) Potassium Level 4.0 mmol/L (3.5-5.1) Chloride Level 103 mmol/L (98-107) Carbon Dioxide Level 32 mmol/L (21-32) Anion Gap 3 (6-14) Blood Urea Nitrogen 19 mg/dL (8-26) Creatinine 0.9 mg/dL (0.7-1.3) Estimated GFR (Cockcroft-Gault) 87.9 Glucose Level 206 mg/dL (70-99) Calcium Level 8.0 mg/dL (8.5-10.1) Assessment and Plan Assessmemt and Plan Problems Medical Problems: (1) COVID-19 virus infection Status: Acute (2) Pneumonia Status: Acute COVID-19 syndrome Fulminant respiratory failure Hypoxia Pneumonia Transaminase-itis Hyponatremia Diarrhea Sepsis Headache Plan IV steroids Zinc Supplemental O2 Duo nebs DVT prophylaxis Home meds Full code Cardiac monitoring Trend labs Pulmonary GI and infectious disease are following appreciate their input Prognosis guarded Total time 31 minutes Comment Review of Relevant I have reviewed the following items alyssa (where applicable) has been applied. Justicifation of Admission Dx: Justifications for Admission: Justification of Admission Dx: Yes Respiratory Failure: Severe Resp Distress FOUZIA LAMAR III DO Oct 16, 2019 12:57
[2019-10-16 15:00] VITALS: BP 137/77
[2019-10-16 19:00] VITALS: BP 145/77
[2019-10-16 23:00] VITALS: BP 125/73
--- NOTE | 2019-10-17 02:30 | NUR ---
Pt's O2 sat 88-90% on 1 liter and right after waking up. Increased to 2 liters and alexi to 91-92%. Will continue to monitor.
[2019-10-17 02:53] VITALS: BP 125/67
[2019-10-17 07:00] VITALS: BP 150/79
[2019-10-17] MEDS: LACTOBACILLUS RHAMNOSUS GG 1 CAPSULE. PO SCH ×2 (09:04→19:29)
[2019-10-17] MEDS: ZINC SULFATE 220 MG CAPSULE. PO SCH (09:04)
[2019-10-17] MEDS: FAMOTIDINE 20 MG TABLET. PO SCH ×2 (09:04→19:29)
[2019-10-17] MEDS: ENOXAPARIN 40 MG/0.4 ML SYRINGE. SQ SCH ×2 (09:04→19:29)
[2019-10-17] MEDS: methylPREDNISolone SOD SUCC PF 40 MG/ML VIAL. IV SCH ×2 (09:05→19:30)
--- NOTE | 2019-10-17 09:39 | PDOC ---
PULMONARY PROGRESS NOTES Subjective on 2 lpm, desat at night ? gabe, sob cough better, no pain, feeling better. has occ cough Vitals Vital Signs Date Time Temp Pulse Resp B/P (MAP) Pulse Ox O2 Delivery O2 Flow Rate FiO2 10/17/19 07:00 97.1 69 16 150/79 (102) 96 Nasal Cannula 2.0 97.1 Comments on appears comfortable no resp distress less cough no paradoxical abd motion no audible wheezing alert and orientated no rash no edema General: Alert, No acute distress Labs Laboratory Tests Test 10/16/19 04:00 White Blood Count 10.8 x10^3/uL (4.0-11.0) Red Blood Count 4.09 x10^6/uL (4.30-5.70) Hemoglobin 13.0 g/dL (13.0-17.5) Hematocrit 37.2 % (39.0-53.0) Mean Corpuscular Volume 91 fL (79-100) Mean Corpuscular Hemoglobin 32 pg (25-35) Mean Corpuscular Hemoglobin Concent 35 g/dL (31-37) Red Cell Distribution Width 13.2 % (11.5-14.5) Platelet Count 464 x10^3/uL (140-400) Neutrophils (%) (Auto) 89 % (31-73) Lymphocytes (%) (Auto) 5 % (24-48) Monocytes (%) (Auto) 5 % (0-9) Eosinophils (%) (Auto) 0 % (0-3) Basophils (%) (Auto) 0 % (0-3) Neutrophils # (Auto) 9.6 x10^3/uL (1.8-7.7) Lymphocytes # (Auto) 0.6 x10^3/uL (1.0-4.8) Monocytes # (Auto) 0.6 x10^3/uL (0.0-1.1) Eosinophils # (Auto) 0.0 x10^3/uL (0.0-0.7) Basophils # (Auto) 0.0 x10^3/uL (0.0-0.2) Segmented Neutrophils % 93 % (35-66) Band Neutrophils % 1 % (0-9) Lymphocytes % 5 % (24-48) Monocytes % 1 % (0-10) Platelet Estimate Adequate (ADEQUATE) Sodium Level 138 mmol/L (136-145) Potassium Level 4.0 mmol/L (3.5-5.1) Chloride Level 103 mmol/L (98-107) Carbon Dioxide Level 32 mmol/L (21-32) Anion Gap 3 (6-14) Blood Urea Nitrogen 19 mg/dL (8-26) Creatinine 0.9 mg/dL (0.7-1.3) Estimated GFR (Cockcroft-Gault) 87.9 Glucose Level 206 mg/dL (70-99) Calcium Level 8.0 mg/dL (8.5-10.1) Medications Active Scripts Medications Dose Route/Sig Max Daily Dose Days Date Category Proair Hfa Inhaler (Albuterol Sulfate) 8.5 Gm Hfa.aer.ad 2 Puff IH PRN Q4-6HRS PRN 21 10/06/19 Rx Mucinex Dm Er 600-30 Mg Tablet (Guaifenesin/Dextromethorphan) 1 Each Tab.er.12h 1 Tab PO PRN BID PRN 14 10/06/19 Rx Tylenol With Codeine #3 Tablet (Acetaminophen/Codeine Phosphate) 1 Each Tablet 1 Tab PO PRN Q8HRS PRN 10/06/19 Rx Zithromax (Azithromycin) 500 Mg Tablet 1 Tab PO DAILY 10/02/19 Rx Comments cxr reviewed Impression . IMPRESSION: 1. COVID-19 pneumonia with worsening hypoxia and ALI 2. Abnormal chest x-ray c/w COVID-19 pneumonia 3. Mildly elevated AST and ALT, suspect secondary to COVID-19. 4. Leukopenia. 5. Mild hyponatremia. resolved Plan . PLAN AND RECOMMENDATIONS: 1. Titrate FiO2 to keep O2 saturation more than 92%, 6 min walk at mo, desat at night, ? gabe rec sleep study as out pt 2. cont antibiotic per id. off abx 3. aggressive DVT prophylaxis. 4. Lovenox 40 mg subcutaneous b.i.d. 5. ID Rec. On Remdesivir. Received Plasma 10/09 . 6. Monitor respiratory status closely. 7. Protonix for stress ulcer prophylaxis. 8. solumedrol 40 bid Discussed with rn, pt RAJNI UMANZOR MD Oct 17, 2019 09:39
[2019-10-17] MEDS: guaiFENesin DM 200MG/20MG 10 ML SYRUP PO PRN (10:28)
[2019-10-17 11:00] VITALS: BP 156/80
--- NOTE | 2019-10-17 12:01 | PDOC ---
[facility] PROGRESS NOTE Chief Complaint Chief Complaint COVID-19 syndrome (status post Remdesivir and recombinant plasma) Fulminant respiratory failure Hypoxia Pneumonia Transaminase-itis Hyponatremia Diarrhea Sepsis Headache History of Present Illness History of Present Illness 10/16/2021 Patient seen and examined on the [facility]19 unit He is still on oxygen Chart reviewed Discussed with RN 10/16/2019 Patient seen and examined on the [facility]- respiratory isolation unit He is a little anxious and still on oxygen Chart reviewed Discussed with RN 10/11/2019 No acute events reported overnight, case discussed with nursing staff patient in no acute distress no complaints during my visit, continues to require nonrebreather mask noted to keep his oxygen saturation above 90%. Patient seems quite antsy and anxious of being in isolation, reassurance has been provided and the plan of care explained in detail 10/11/2019 Patient seen and examined He continues to require more and more oxygen Now on 100% nonrebreather Discussed with RN Chart reviewed 10/10/2019 Patient seen and examined He appears quite ill He is short of breath and hypoxic at 87% despite being on O2 per nasal cannula I called the pharmacy to order some convalescent plasma but they explained only certain doctors are allowed to order it I called Dr. Enciso, he was not sure how to get it either (but he did order the Remdesivir and we certainly appreciate his input and help) I notified Dr. Salguero of the situation, and he is going to call in order the convalescent plasma for us. Thank you Chart reviewed Discussed with RN I reviewed the chest x-ray myself it is showing worsening congestion bilaterally as well as borderline cardiomegaly I went ahead and consulted cardiology also Vitals/I&O Vitals/I&O: Vital Signs Date Time Temp Pulse Resp B/P (MAP) Pulse Ox O2 Delivery O2 Flow Rate FiO2 10/17/19 11:00 94.7 61 18 156/80 (105) 93 Nasal Cannula 1.0 94.7 I & O 10/16/19 10/16/19 10/17/19 15:00 23:00 07:00 Intake Total 900 ml 360 ml Balance 900 ml 360 ml Physical Exam Physical Exam: GENERAL: Propped up in bed, alert, smiling HEENT: Oral cavity, pharynx is clear. NECK: Supple. Good range of motion. LUNGS: Improved aeration HEART: S1, S2. ABDOMEN: Soft, nontender, nondistended EXTREMITIES: Without clubbing or cyanosis. No gross edema. SKIN: Warm to touch without signs of rash. NEUROLOGIC: Nonfocal and pleasant. PSYCHIATRIC: Affect is appropriate General: Alert, Oriented X3, Cooperative, No acute distress Heart: Regular rate (SR/ST) Abdomen: Soft, No tenderness, No hepatosplenomegaly Extremities: No cyanosis, No edema Skin: No breakdown, No significant lesion Assessment and Plan Assessmemt and Plan Problems Medical Problems: (1) COVID-19 virus infection Status: Acute (2) Pneumonia Status: Acute COVID-19 respiratory failure Hypoxia Pneumonia Transaminase-itis Hyponatremia Diarrhea Sepsis Headache Plan IV steroids Zinc Supplemental O2 Duo nebs DVT prophylaxis Home meds Full code Cardiac monitoring Trend labs Pulmonary GI and infectious disease are following appreciate their input COVID-19 CRITERIA: The patient was evaluated during the global COVID-19 pandemic, and that diagnosis was suspected/considered upon their initial presentation. Their evaluation, treatment and testing was consistent with current guidelines for patients who present with complaints or symptoms that may be related to COVID-19. Total time 31 minutes Comment Review of Relevant I have reviewed the following items alyssa (where applicable) has been applied. Medications: Current Medications Medications (Trade) Dose Ordered Sig/Melissa Route PRN Reason Start Time Stop Time Status Last Admin Dose Admin Methylprednisolone Sodium Succinate (SOLU-Medrol 40MG VIAL) 40 mg Q12HR IV 10/16/19 21:00 10/17/19 09:05 Justicifation of Admission Dx: Justifications for Admission: Justification of Admission Dx: Yes Respiratory Failure: Severe Resp Distress FOUZIA LAMAR III DO Oct 17, 2019 12:01
--- NOTE | 2019-10-17 13:07 | PDOC ---
Infectious Disease Note Subjective Subjective Comfortable O2 down to 1L now Denies SOA/CP/F/C Took a shower earlier without getting shortwinded Says strength is improving Appreciative of all the care he is receiving. ROS ROS as mentioned above Vital Sign Vital Signs Vital Signs Date Time Temp Pulse Resp B/P (MAP) Pulse Ox O2 Delivery O2 Flow Rate FiO2 10/17/19 11:00 94.7 61 18 156/80 (105) 93 Nasal Cannula 1.0 94.7 Physical Exam PHYSICAL EXAM GENERAL: Propped up in bed, alert, smiling HEENT: Oral cavity, pharynx is clear. NECK: Supple. Good range of motion. LUNGS: Clear, nonlabored HEART: S1, S2. ABDOMEN: Soft, nontender, nondistended EXTREMITIES: Without clubbing or cyanosis. No gross edema. SKIN: Warm to touch without signs of rash. NEUROLOGIC: Nonfocal and pleasant. PSYCHIATRIC: Affect is appropriate Labs Micro Microbiology 10/09/19 Blood Culture - Final, Complete NO GROWTH AFTER 5 DAYS Objective Assessment COVID + on 10/01 - Improving - s/p Plasma and Remdesivir Fever - resolved Acute hypoxic resp failure - improving O2 now down to 1, on steroids Abnormal CXR Transaminitis - improving Leukopenia - better Plan Plan of Care Continue to observe off abx Steroids per pulm D/w nursing Attending Co-Sign The patient was seen and interviewed as well as examined at the bedside. The chart was reviewed. The case was discussed. Agree with the plan of care. LEDA OVIEDO APRN Oct 17, 2019 13:07 RAQUEL EDDY MD Oct 17, 2019 13:19
[2019-10-17 15:00] VITALS: BP 158/85
[2019-10-17 19:00] VITALS: BP 142/78
[2019-10-17] MEDS: TEMAZEPAM 15 MG CAPSULE PO PRN (19:39)
[2019-10-17 23:00] VITALS: BP 120/61
[2019-10-18 03:00] VITALS: BP 125/80
[2019-10-18 07:00] VITALS: BP 131/80
[2019-10-18] MEDS: ENOXAPARIN 40 MG/0.4 ML SYRINGE. SQ SCH (08:14)
[2019-10-18] MEDS: methylPREDNISolone SOD SUCC PF 40 MG/ML VIAL. IV SCH (08:14)
[2019-10-18] MEDS: LACTOBACILLUS RHAMNOSUS GG 1 CAPSULE. PO SCH (08:14)
[2019-10-18] MEDS: FAMOTIDINE 20 MG TABLET. PO SCH (08:14)
[2019-10-18] MEDS: ZINC SULFATE 220 MG CAPSULE. PO SCH (08:14)
[2019-10-18 10:47] VITALS: BP 137/79
--- NOTE | 2019-10-18 10:49 | NUR ---
SW following. Reviewed chart and coordinated care with RN and Dr. Davenport. Pt ready for discharge today, 10/18/2019 back to home. Pt on 1l 02 but will likely discharge home on room air. RN stated she will let SW know if 02 setup is needed prior to discharge. Pt to discharge on oral medications per RN. No further SW needs at this time.
--- NOTE | 2019-10-18 10:55 | PDOC ---
Infectious Disease Note Subjective Subjective Patient is alert awake feeling really good not on oxygen wants to go home ROS ROS No nausea vomiting diarrhea chest pain shortness of breath Vital Sign Vital Signs Vital Signs Date Time Temp Pulse Resp B/P (MAP) Pulse Ox O2 Delivery O2 Flow Rate FiO2 10/18/19 10:47 97.8 74 17 137/79 (98) 94 Room Air 97.8 10/18/19 07:00 1.0 Physical Exam PHYSICAL EXAM GENERAL: Propped up in bed, alert, smiling HEENT: Oral cavity, pharynx is clear. NECK: Supple. Good range of motion. LUNGS: Clear, nonlabored HEART: S1, S2. ABDOMEN: Soft, nontender, nondistended EXTREMITIES: Without clubbing or cyanosis. No gross edema. SKIN: Warm to touch without signs of rash. NEUROLOGIC: Nonfocal and pleasant. PSYCHIATRIC: Affect is appropriate Labs Micro Microbiology 10/09/19 Blood Culture - Final, Complete NO GROWTH AFTER 5 DAYS Objective Assessment COVID + on 10/01 - Improving - s/p Plasma and Remdesivir Fever - resolved Acute hypoxic resp failure - improving O2 now down to 1, on steroids Abnormal CXR Transaminitis - improving Leukopenia - better Plan Plan of Care Continue to observe off abx Okay to MO home D/w nursing RAQUEL EDDY MD Oct 18, 2019 10:55
--- NOTE | 2019-10-18 11:28 | PDOC ---
Objective: Objective: Reviewed chart, discharge considered. D/w nurse - doing great, no GI concerns, probably to DC to home today. Vital Signs: Vital Signs Date Time Temp Pulse Resp B/P (MAP) Pulse Ox O2 Delivery O2 Flow Rate FiO2 10/18/19 10:47 97.8 74 17 137/79 (98) 94 Room Air 97.8 10/18/19 07:00 1.0 PE: deferred, in COVID isolation - note on room air per chart A/P: +COVID-19/resp failure, transaminitis - improved -- DC per primary. Justicifation of Admission Dx: Justifications for Admission: Justification of Admission Dx: Yes Respiratory Failure: Severe Resp Distress JAVIER VERA Oct 18, 2019 11:28
--- NOTE | 2019-10-18 12:00 | NUR ---
Discharge Note: MELITA LEDEZMA [facility] Discharge instructions and discharge home medications reviewed with Patient and a copy given. All questions have been answered and understanding verbalized. The following instructions and handouts were given: f/u with PCP within one week. Discontinued lines and drains: Peripheral IV intact. Patient discharged to Home or Self Care with Self via Ambulated
--- NOTE | 2019-10-18 12:13 | PDOC ---
PULMONARY PROGRESS NOTES Subjective on RA, sob cough better, no pain, feeling better. has occ cough Vitals Vital Signs Date Time Temp Pulse Resp B/P (MAP) Pulse Ox O2 Delivery O2 Flow Rate FiO2 10/18/19 10:47 97.8 74 17 137/79 (98) 94 Room Air 97.8 10/18/19 07:00 1.0 Comments on appears comfortable no resp distress less cough no paradoxical abd motion no audible wheezing alert and orientated no rash no edema General: Alert, No acute distress Medications Active Scripts Medications Dose Route/Sig Max Daily Dose Days Date Category Proair Hfa Inhaler (Albuterol Sulfate) 8.5 Gm Hfa.aer.ad 2 Puff IH PRN Q4-6HRS PRN 21 10/06/19 Rx Mucinex Dm Er 600-30 Mg Tablet (Guaifenesin/Dextromethorphan) 1 Each Tab.er.12h 1 Tab PO PRN BID PRN 14 10/06/19 Rx Tylenol With Codeine #3 Tablet (Acetaminophen/Codeine Phosphate) 1 Each Tablet 1 Tab PO PRN Q8HRS PRN 10/06/19 Rx Zithromax (Azithromycin) 500 Mg Tablet 1 Tab PO DAILY 10/02/19 Rx Comments cxr reviewed Impression . IMPRESSION: 1. COVID-19 pneumonia , improved, on RA 2. Abnormal chest x-ray c/w COVID-19 pneumonia 3. Mildly elevated AST and ALT, suspect secondary to COVID-19. 4. Leukopenia. 5. Mild hyponatremia. resolved Plan . PLAN AND RECOMMENDATIONS: 1. on RA, doing well. rec sleep study as out pt 2. off abx 3. DVT prophylaxis. 5. ID Rec. On Remdesivir. Received Plasma 10/09 . 6. PO steroid taper ok with dc home Discussed with rn, pt BEN GRAHAM MD Oct 18, 2019 12:13
--- NOTE | 2019-10-18 12:27 | DS ---
DATE OF DISCHARGE: 10/18/2019 ADMISSION DIAGNOSIS: Recurrent COVID-19 pneumonia. DISCHARGE DIAGNOSES: Resolving COVID-19. HOSPITAL COURSE: The patient is a pleasant middle-aged male, who presented with COVID-19. He had it previously and we discharged him a few days prior to this admission, but then he came back because symptoms are worsening. He actually ended up having to be transferred from the COVID-19 unit on the 6th floor to the ICU. We ended up giving him steroids and plasma. He also got remdesivir. Over the past 10 days, he has finally got back to his baseline. This morning, I saw him and examined him. His heart tones were normal. Lungs were clear. We plan to discharge with a Medrol Dosepak. DISPOSITION: Home. ACTIVITY: As tolerated. DIET: Low sodium. MEDICATIONS: Please see MRAD. TOTAL TIME: 38 minutes. BAYLEEL Lita LAMAR DO DR: PARIS/anais JOB#: [id number] / [id number]
== END 2019-10-18 12:00 | disposition home or self-care (01) | DRG 177 ==
LOC: ER 07:00 → 6 SOUTH 10:00 → 1 WEST ICU 10-11 13:47 → 6 SOUTH 10-15 15:18
PROVIDERS: ADMIT Internal Medicine; ATTEND Internal Medicine
PROC: 30233K1 Transfusion of Nonautologous Frozen Plasma into Peripheral Vein, Percutaneous Approach (ICD-10-PCS; principal; 2019-10-10)
DX: U07.1 COVID-19 (principal); A41.9 Sepsis, unspecified organism; J96.01 Acute respiratory failure with hypoxia; J12.89 Other viral pneumonia; E87.1 Hypo-osmolality and hyponatremia; D72.819 Decreased white blood cell count, unspecified; G47.33 Obstructive sleep apnea (adult) (pediatric); I10 Essential (primary) hypertension; Z78.9 Other specified health status; Z82.49 Family history of ischemic heart disease and other diseases of the circulatory system
CPT/HCPCS: 36415; 36600; 71045; 80048; 80053; 80061; 82728; 82805; 83605; 83615; 83880; 84145; 84443; 84484; 85007; 85025; 85049; 85379; 85384; 85610; 85730; 86140; 86850; 86900; 86901; 86927; 87040; 93005; 94760; 96365; 99285; J0456; J1650; J2543; J2920; J7050; G0378; J7030; P9017

== ENCOUNTER 2019-10-19 10:59 | Emergency (ER) | payer BC ==
[~2019-10-19] VITALS: Ht 170.2 cm; Wt 91.0 kg
[2019-10-19 11:24] VITALS: BP 143/81
[2019-10-19] MEDS ORDERED: IV NORMAL SALINE 1000ML BAG 1,000 ML IV ONE (11:30)
--- NOTE | 2019-10-19 11:37 | PHYS DOC ---
Past Medical History Past Medical History: No Pertinent History Past Surgical History: No Surgical History Smoking Status: Never Smoker Alcohol Use: None General Adult EDM: Chief Complaint: SHORTNESS OF BREATH HPI: HPI: Patient is a 54 year old Male who presents with admitted 10/08 and discharged 10/17 with pneumonia and Covid 19. He states he is having increased SOA and weakness. He was discharged with Dexamethasone of which he started today. Denies pain, chest pain, abdominal pain, nausea, vomiting, diarrhea, dizziness, headache, vision changes, focal weakness. Review of Systems: Review of Systems: Respiratory: Denies cough. +shortness of breath. [] Neurologic: Denies headache, focal weakness or sensory changes. Generalized Weakness. [] Heart Score: Risk Factors: Risk Factors: DM, Current or recent (<one month) smoker, HTN, HLP, family history of CAD, obesity. Risk Scores: Score 0 - 3: 2.5% MACE over next 6 weeks - Discharge Home Score 4 - 6: 20.3% MACE over next 6 weeks - Admit for Clinical Observation Score 7 - 10: 72.7% MACE over next 6 weeks - Early Invasive Strategies Allergies: Allergies: Allergies Coded Allergies Type Severity Reaction Last Updated Verified No Known Drug Allergies 10/02/19 No Physical Exam: PE: Constitutional: Well developed, well nourished, no acute distress, non-toxic appearance. [] HENT: Normocephalic, atraumatic, bilateral external ears normal, oropharynx moist, no oral exudates, nose normal. [] Eyes: PERRLA, EOMI, conjunctiva normal, no discharge. [] Neck: Normal range of motion, no tenderness, supple, no stridor. [] Cardiovascular:Heart rate regular rhythm, no murmur [] Lungs & Thorax: Bilateral upper breath sounds clear and lower diminished to auscultation [] Abdomen: Bowel sounds normal, soft, no tenderness, no masses, no pulsatile masses. [] Skin: Warm, dry, no erythema, no rash. [] Back: No tenderness, no CVA tenderness. [] Extremities: No tenderness, no cyanosis, no clubbing, ROM intact, no edema. [] Neurologic: Alert and oriented X 3, normal motor function, normal sensory function, no focal deficits noted. [] Psychologic: Affect normal, judgement normal, mood normal. [] EKG: EK and read by Dr Melissa as Sinus Rhythm and no STEMI[] Radiology/Procedures: Radiology/Procedures: [] Impression: [facility] [address] [place] [address] IMAGING REPORT Signed PATIENT: TANYA LEDEZMA ACCOUNT: [id number] : 1965 LOCATION: ER AGE: 54 SEX: M EXAM STATUS: REG ER ORD. PHYSICIAN: RACHEL BETANCOURT APRN REASON: COVID+, HX PNEUMONIA, INCREASE SOA PROCEDURE: PORTABLE CHEST 1V PORTABLE CHEST 1V History: Reason: COVID+, HX PNEUMONIA, INCREASE SOA / Spl. Instructions: / History: Comparison: October 09, 2019 Findings: Increased multifocal ill-defined opacities. No pleural effusion. No pneumothorax. Normal heart size. Impression: 1. Increased ill-defined multifocal opacities, can be seen with viral pneumonia. Electronically signed by: Joyce Padilla DO (10/19/2019 12:09 PM) [id number] DICTATED and SIGNED BY: JOYCE PADILLA DO DATE: 10/19/19 1209 Course & Med Decision Making: Course & Med Decision Making Pertinent Labs and Imaging studies reviewed. (See chart for details) Alert and oriented. Speaks full clear sentences. Moves all extremities within normal limits. Ambulatory with steady gait. Lungs are clear in upper lobes but diminished in lower lobes. He was 93% on room air. EKG shows sinus rhythm and no STEMI. Patient is educated that weakness and soa are part of the virus and it has to run its course. Patient is worried because he is feeling more short of breath than usual. Patient states what I do about this weakness. I told him it is a virus and it has to run its course unfortunately but he needs to make sure he staying hydrated and he is eating to keep his strength up. Patient states his understanding. I have gone over findings with Dr Melissa and care plan. Patient is discharged home. [] Dragon Disclaimer: Dragon Disclaimer: This electronic medical record was generated, in whole or in part, using a voice recognition dictation system. Departure Departure Impression: Primary Impression: Shortness of breath Disposition: HOME, SELF-CARE Condition: STABLE Referrals: NO PCP (PCP) Patient Instructions: Shortness of Breath Additional Instructions: Follow-up with your primary care provider if needed. Continue medication as prescribed to you. Drink plenty of fluids and eat regularly to keep your strength up. Take Tylenol for any pain or fever. Scripts No Active Prescriptions or Reported Meds Justicifation of Admission Dx: Justifications for Admission: Justification of Admission Dx: Yes Respiratory Failure: Severe Resp Distress RACHEL BETANCOURT ASSOCIATE PROFESSOR OF ENGINEERING Oct 19, 2019 11:37
[2019-10-19 12:06] LABS: BASO % 0 % (0-3); EOS % 0 % (0-3); HEMATOCRIT 41.7 % (39.0-53.0); HEMOGLOBIN 14.6 g/dL (13.0-17.5); LYMPH # 0.9 x10^3/uL (1.0-4.8); LYMPH % 8 % (24-48); MEAN CORPUSCULAR HEMOGLOBIN 32 pg (25-35); MEAN CORPUSCULAR HGB CONC 35 g/dL (31-37); MEAN CORPUSCULAR VOLUME 91 fL (79-100); MONO # 0.7 x10^3/uL (0.0-1.1); MONO % 6 % (0-9); NEUT # 10.6 x10^3/uL (1.8-7.7); NEUT % 87 % (31-73); PLATELET COUNT 526 x10^3/uL (140-400); RED BLOOD COUNT 4.61 x10^6/uL (4.30-5.70); WHITE BLOOD COUNT 12.2 x10^3/uL (4.0-11.0)
[2019-10-19 12:07] LABS: BILIRUBIN,URINE NEGATIVE (NEG); CLARITY,URINE CLEAR; COLOR,URINE YELLOW; NITRITE,URINE NEGATIVE (NEG); PH,URINE 6.5 (<5.0-8.0); PROTEIN,URINE NEGATIVE (NEG-TRACE); UROBILINOGEN,URINE 0.2 mg/dL (0.2 mg/dL)
--- NOTE | 2019-10-19 12:12 | RAD ---
PORTABLE CHEST 1V History: Reason: COVID+, HX PNEUMONIA, INCREASE SOA / Spl. Instructions: / History: Comparison: October 09, 2019 Findings: Increased multifocal ill-defined opacities. No pleural effusion. No pneumothorax. Normal heart size. Impression: 1. Increased ill-defined multifocal opacities, can be seen with viral pneumonia. Electronically signed by: Lázaro Padilla DO (10/19/2019 12:09 PM) [id number]
--- NOTE | 2019-10-19 12:14 | EKG ---
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
[2019-10-19 12:15] LABS: CALCIUM 8.5 mg/dL (8.5-10.1); GFR 77.9; POTASSIUM 4.5 mmol/L (3.5-5.1)
[2019-10-19 12:22] LABS: ALBUMIN 3.3 g/dL (3.4-5.0); TOTAL BILIRUBIN 0.9 mg/dL (0.2-1.0); TOTAL PROTEIN 6.5 g/dL (6.4-8.2)
[2019-10-19 12:34] LABS: BACTERIA,URINE 0 /HPF (0-FEW); RBC,URINE OCC /HPF (0-2); SQUAMOUS EPITHELIAL CELL,UR OCC /LPF; WBC,URINE OCC /HPF (0-4)
[2019-10-19 12:52] LABS: BASE EXCESS COOX -1 mmol/L (-3-3); HCO3 COOX 22 mmol/L (21-28); METHEMOGLOBIN 0.2 % (0.0-1.9); PCO2 COOX 31 mmHg (35-46); PO2 COOX 70 mmHg (75-108); SAT O2 COOX 94 % (92-99)
[2019-10-19 13:59] LABS: % LYMPHS 11 % (24-48); % MONOS 8 % (0-10); % MYELOS 1 % (0-0); % SEGS 80 % (35-66)
[2019-10-19 14:00] LABS: PLT ESTIMATE INCREASED (ADEQUATE)
== END 2019-10-19 13:47 | disposition home or self-care (01) ==
LOC: ER 10:59
DX: R06.02 Shortness of breath (principal); U07.1 COVID-19; R53.1 Weakness
CPT/HCPCS: 36415; 36600; 71045; 80053; 81001; 82805; 83690; 84484; 85007; 85025; 93005; 99285; J7030